=== PATIENT | female | born 1960 | race Caucasian/White ===

== ENCOUNTER 2024-05-01 16:22 | Emergency (ER) | payer OTHER, SELFPAY ==
[2024-05-01 16:27] VITALS: BP 130/85
[2024-05-01 16:37] LABS: % Basophils 0.2 % (0-2); % Eosinophils 0.1 % (0-6); % Immature Granulocytes 3.6 % (0-0.5); % Lymphocytes 6.8 % (20.5-51.1); % Monocytes 5.9 % (1.7-9.3); % Neutrophils 83.4 % (42.2-75.2); Absolute Immature Granulocytes 0.5 10^3/uL (0-0.05); Absolute Lymphocytes 0.9 10^3/uL (1.2-3.4); Absolute Monocytes 0.8 10^3/uL (0.1-0.6); Absolute Neutrophils 10.7 10^3/uL (1.4-6.5); Hematocrit 37.7 % (37.0-47.0); Hemoglobin 12.8 g/dL (12.0-16.0); Mean Corpuscular Hgb 33.2 pg (27.0-31.0); Mean Corpuscular Volume 97.7 fL (81.0-99.0); Mean Platelet Volume 10.9 fL (7.4-10.4); Nucleated Red Blood Cells % 0 %; Platelet Count 267 10^3/uL (130-400); Red Blood Cell Count 3.86 10^6/uL (4.20-5.40); Red Cell Dist. Width 13.6 % (11.5-14.5); White Blood Cell Count 12.9 10^3/uL (4.8-10.8)
[2024-05-01 16:50] LABS: ALT (SGPT) 53 U/L (0-35); AST (SGOT) 32 U/L (14-36); Alkaline Phosphatase 82 U/L (38-126); Blood Urea Nitrogen 13 mg/dl (7-17); Calcium 9.6 mg/dl (8.4-10.2); Carbon Dioxide 26 mmol/L (22-30); Chloride 98 mmol/L (98-107); Glucose 104 mg/dl (70-99); Sodium 130 mmol/L (135-145); Total Bilirubin 0.5 mg/dl (0.2-1.3); Total Protein 6.1 g/dl (6.3-8.2); eGFR > 60.00
[2024-05-01 19:16] VITALS: BP 148/75; BMI 23.9
--- NOTE | 2024-05-01 19:16 | ED.GENMED ---
History of Present Illness
General
Chief Complaint: Urinary Symptoms
Time Seen by Provider: 05/01/24 19:03
History of Present Illness
History of Present Illness:
63-year-old female presents to the emergency department for evaluation of right flank pain radiating to the right pelvis beginning today. She had hematuria earlier this week and was placed on antibiotics by her [facility] cancer team, first dose of
nitrofurantoin was yesterday. She denies any fevers, chills, sweats, nausea, or vomiting. Has been taking Tylenol without significant relief. Currently undergoing chemo and radiation for metastatic breast cancer, has chemo tentatively scheduled
for Saturday
Past History
Past History
ED Past Medical History: Cancer (breast)
Social History
Tobacco: Non-smoker
Alcohol: None
Drug: None
Personal:
Living: with family
Review of Systems
Review of Systems
Allergies reviewed?: Yes
All Other Systems: ROS reviewed and negative except as documented in HPI and ROS
Phy Exam
Physical Exam
Physical Exam:
GEN: Well appearing, NAD, WDWN
HEENT: Oral mucosa moist, no scleral icterus
Cardiac: Regular rate
Lung: No respiratory distress, no tachypnea
MSK: No gross deformity or injuries
Skin: Good color, no pallor or jaundice, no rashes
Neuro: AO x3, moves all extremities freely
Psych: Calm, cooperative
Course
Orders/Labs/Results
Orders:
Orders
05/01/24 16:34
Complete Blood Count/With Diff Urgent
Comprehensive Metabolic Panel Urgent
05/01/24 19:16
CT Abd/pel Without Iv Or Oral Urgent
Comment:
Reason For Exam: R flank pain
05/01/24 19:20
Urinalysis Reflex To Culture Urgent
Date Specimen was Collected: 05/01/24
Time Specimen was Collected: 19:19
Urine Microscopic Reflex Cult Urgent
05/01/24 21:09
Ketorolac [Toradol] 30 mg IM NOW STA
Tamsulosin [Flomax] 0.4 mg PO NOW STA
Abnormal Lab Results
05/01/24 05/01/24
16:34 19:20
WBC 12.9 H 10^3/uL
(4.8-10.8)
RBC 3.86 L 10^6/uL
(4.20-5.40)
MCH 33.2 H pg
(27.0-31.0)
MPV 10.9 H fL
(7.4-10.4)
Abs Immat Gran (auto) 0.5 H 10^3/uL
(0-0.05)
Absolute Neuts (auto) 10.7 H 10^3/uL
(1.4-6.5)
Absolute Lymphs (auto) 0.9 L 10^3/uL
(1.2-3.4)
Absolute Monos (auto) 0.8 H 10^3/uL
(0.1-0.6)
Immature Gran % 3.6 H %
(0-0.5)
Neutrophils % 83.4 H %
(42.2-75.2)
Lymphocytes % 6.8 L %
(20.5-51.1)
Sodium 130 L mmol/L
(135-145)
Glucose 104 H mg/dl
(70-99)
ALT 53 H U/L
(0-35)
Total Protein 6.1 L g/dl
(6.3-8.2)
Ur Occult Blood Reflex 2+ A
(Negative)
Urine RBC 7-10 A /HPF
(0-2)
Urine Bacteria (Reflex) Few A
(Negative)
05/01/24 16:34
05/01/24 16:34
Vital Signs
Initial and Last Documented VS:
Initial Vital Signs
Temp Pulse Resp BP Pulse Ox
98.1 F 74 16 130/85 97
05/01/24 16:27 05/01/24 16:27 05/01/24 16:27 05/01/24 16:27 05/01/24 16:27
Last Documented Vital Signs
Temp Pulse Resp BP Pulse Ox
98.1 F 62 18 148/75 100
05/01/24 16:27 05/01/24 19:16 05/01/24 20:06 05/01/24 19:16 05/01/24 19:16
MDM/Problems Addressed
MDM/Problems Addressed:
3 mm proximal right ureteral stone identified on CT. She is clinically stable and urine is bland. Nevertheless we will recommend she complete her course of Macrobid given that she is scheduled for chemotherapy soon. Will prescribe NSAIDs and
Flomax, the patient is on dexamethasone and prophylactic PPIs, educated on the potential risk of stomach ulcer formation however feel this outweighs the risk of treating the stone with opiates only.
*Critical Care Note
Total Time (30-74mins, 75-104mins- exclusive of procedures): Not Applicable
ED Attending Note
-
Portions of this chart may have been created with voice recognition software.� Occasional wrong word or��sound alike� substitutions may have occurred due to the inherent limitations of voice recognition software.
Discharge Plan
Departure
Patient Disposition: Home (Routine Discharge)
Date of Disposition: 05/01/24
Time of Disposition: 21:16
Patient with high blood pressure during this ER visit?: No
Discharge Problem:
Ureterolithiasis
Instructions: Kidney Stone, Adult ED
Prescriptions:
New
diclofenac sodium 75 mg tablet,delayed release (DR/EC)
75 mg PO BID Qty: 20 0RF
tamsulosin [Flomax] 0.4 mg capsule
0.4 mg PO HS Qty: 14 0RF
Referrals:
NotteRamiroChar K., DO [Family Provider] -
Activity Restrictions/Additional Instructions:
Take the medications as prescribed. Please finish your course of antibiotics prescribed by your doctor prior to arrival in the ER. Use the urine strainer to be sure you know when you have passed the stone. Return to the ER if you develop fever,
vomiting, or uncontrolled pain. Please contact your oncology team on Saturday to make them aware that you were diagnosed with a 3 mm right ureter stone
Interventions
Interventions:
*Risk Screen - Suicide Last Done: 05/01/24 16:28
*General Assessment Last Done: 05/01/24 19:16
*Neglect/Abuse Screening Last Done: 05/01/24 16:28
ED- Fall Risk Assessment Last Done: 05/01/24 19:16
*ED COVID-19 Vaccine History Last Done: 05/01/24 19:16
*Nursing Disposition Last Done: 05/01/24 21:24
ED-Female Genitourinary Assessment Last Done: 05/01/24 19:16
Discharge Date and Time
Discharge Date/Time: 05/01/24 21:25
Print Language: SWAZI
[2024-05-01 19:51] LABS: Urine Albumin Negative (Neg - Trace); Urine Bilirubin Negative (Negative); Urine Character Clear (Clear); Urine Color Yellow; Urine Glucose Negative (Negative); Urine Ketone Negative (Negative); Urine Leukocyte Negative (Negative); Urine Nitrite Negative (Negative); Urine Occult Blood 2+ (Negative); Urine Urobilinogen Negative (Neg - 1+)
[2024-05-01 20:21] LABS: Urine Bacteria Few (Negative); Urine White Cell 0-2 /HPF (0-5)
[2024-05-01] MEDS: FLOMAX 0.4 MG PO (21:21)
[2024-05-01] MEDS: TORADOL 30 MG IM (21:21)
== END 2024-05-01 21:25 | disposition home or self-care (01) ==
LOC: EMR 16:22
PROVIDERS: Physician Assistant; Student in an Organized Health Care Education/Training Program; EMERGENCY PHYSICIAN Emergency Medicine; FAMILY PHYSICIAN Family Medicine
DX: N20.2 Calculus of kidney with calculus of ureter (principal); R31.9 Hematuria, unspecified; C50.919 Malignant neoplasm of unspecified site of unspecified female breast
CPT/HCPCS: 99284; 74176; 80053; 81003; 81015; 85025

== ENCOUNTER 2024-06-03 21:53 | Inpatient (IN) | payer OTHER, SELFPAY ==
[2024-06-03] VITALS (16 sets, daily range): BP systolic 97–124; BP diastolic 58–90; BMI 21.1; BMI 24.1
--- NOTE | 2024-06-03 14:22 | ED.GENMED ---
History of Present Illness
General
Chief Complaint: Dehydration Symptoms
Source: patient
Exam Limitations: none
Time Seen by Provider: 06/03/24 14:03
History of Present Illness
History of Present Illness:
63-year-old breast and lung cancer patient followed at [facility] presents with fatigue racing heart feelings of dehydration. She was seen here at the end of April with a right kidney stone. She notes persistent right flank pain but does believe
she passed stone. The flank pain is pleuritic in nature. She does note that she has blisters over her mouth which are expected per her cancer care team given the chemotherapy she is receiving. She has had loose stools intermittently over the past
couple days. She denies chest pain. She noted a fever at home. She is currently on Zithromax for cough and doxycycline ongoing.
Past History
Past History
ED Past Medical History: Cancer (breast)
Social History
Tobacco: Non-smoker
Alcohol: None
Drug: None
Personal:
Living: with family
Phy Exam
Physical Exam
Physical Exam:
General: Chronically ill-appearing female no acute respiratory distress
HEENT: Normocephalic atraumatic blisters noted around the mouth. Mucosa dry
Heart: Tachycardic but regular
Lungs: Wheeze bilaterally
Abdomen is soft nontender nondistended no guarding or rebound
Extremities: No cyanosis
Skin no rash
Course
Orders/Labs/Results
Orders:
Orders
06/03/24 11:39
EKG [Electrocardiogram (*1)] Urgent
Reason for Study: Tachycardia
EKG- Treatment ONCE
06/03/24 14:21
CT Abd/pel Without Iv Or Oral Urgent
Comment:
Reason For Exam: right flank pain
CT Chest PE Study Urgent
Comment:
Reason For Exam: tachycardia, sob, flank pain
0.9% Sodium Chloride 1000 ml [Nss] 1,000 ml IV BOLUS
Ipratropium/Albuterol Sulfate [Duoneb] 3 ml INH R NOW STA
06/03/24 14:44
COVID-19 Antigen Urgent
Source: Nasal Swab
Influenza A+B Rapid Molecular Urgent
VESTA Source: Nasal Swab
Specimen Description:
06/03/24 14:46
Complete Blood Count/With Diff Urgent
Comprehensive Metabolic Panel Urgent
TSH Reflex To Free T4 Urgent
06/03/24 15:47
Ketorolac [Toradol] 15 mg IV NOW STA
06/03/24 18:11
0.9% Sodium Chloride 1000 ml [Nss] 1,000 ml IV BOLUS
Dexamethasone Sod Phosphate [Decadron] 10 mg IV NOW STA
06/03/24 18:13
Urinalysis Reflex To Culture Urgent
Abnormal Lab Results
06/03/24
14:46
WBC 1.6 L* 10^3/uL
(4.8-10.8)
RBC 2.84 L 10^6/uL
(4.20-5.40)
Hgb 9.7 L g/dL
(12.0-16.0)
Hct 29.2 L %
(37.0-47.0)
MCV 102.8 H fL
(81.0-99.0)
MCH 34.2 H pg
(27.0-31.0)
RDW 14.8 H %
(11.5-14.5)
Plt Count 81 L 10^3/uL
(130-400)
MPV 12.3 H fL
(7.4-10.4)
Absolute Neuts (auto) 1.0 L 10^3/uL
(1.4-6.5)
Absolute Lymphs (auto) 0.5 L 10^3/uL
(1.2-3.4)
Absolute Monos (auto) 0.0 L 10^3/uL
(0.1-0.6)
Immature Gran % 1.8 H %
(0-0.5)
Monocytes % 1.2 L %
(1.7-9.3)
Sodium 132 L mmol/L
(135-145)
Potassium 3.2 L mmol/L
(3.5-5.1)
BUN 25 H mg/dl
(7-17)
Creatinine 1.1 H mg/dL
(0.6-1.0)
Calcium 7.8 L mg/dl
(8.4-10.2)
Total Protein 4.4 L g/dl
(6.3-8.2)
Albumin 2.4 L g/dl
(3.5-5.0)
06/03/24 14:46
06/03/24 14:46
Vital Signs
Initial and Last Documented VS:
Initial Vital Signs
Temp Pulse Resp BP Pulse Ox
99.8 F 142 18 120/75 97
06/03/24 11:40 06/03/24 11:40 06/03/24 11:40 06/03/24 11:40 06/03/24 11:40
Last Documented Vital Signs
Temp Pulse Resp BP Pulse Ox
99.8 F 116 17 108/71 97
06/03/24 11:40 06/03/24 17:00 06/03/24 17:00 06/03/24 17:00 06/03/24 17:00
MDM/Problems Addressed
Differential Diagnosis Includes:
Fatigue, racing heart sensation of dehydration and pleuritic right flank pain. Review of chart shows that she had a right ureteral stone about a month ago. She believes she passed a stone. Given the tachycardia cancer patient status and pleuritic
nature of pain will PE study her. Also order CT of abdomen to evaluate status of kidney stone. Fluids ordered. DuoNeb ordered. COVID and flu test pending
*Critical Care Note
Total Time (30-74mins, 75-104mins- exclusive of procedures): Not Applicable
Update Note
Update Note:
Patient has several things going up on her workup. She has severe bronchitis on CT of her chest but no PE. She also has a 3.9 mm distal ureteral stone on the right side. Still looks dry. She persist to be tachycardic in the upper 120s. Patient
is given nebulizer here Decadron here and Toradol for her flank pain. At this point will admit for persistent tachycardia secondary to dehydration due to bronchitis and right sided kidney stone
ED Attending Note
-
Portions of this chart may have been created with voice recognition software.� Occasional wrong word or��sound alike� substitutions may have occurred due to the inherent limitations of voice recognition software.
Discharge Plan
Departure
Patient Disposition: Admit
Date of Disposition: 06/03/24
Time of Disposition: 18:17
Admit to: Telemetry
Presentation/result/management discussed w/ accepting MD/DO: Hospitalist
Discharge Problem:
Acute dehydration, Acute bronchitis, Calculus of right ureter
Prescriptions:
No Action
diclofenac sodium 75 mg tablet,delayed release (DR/EC)
75 mg PO BID Qty: 20 0RF
tamsulosin [Flomax] 0.4 mg capsule
0.4 mg PO HS Qty: 14 0RF
Referrals:
Char Ryan DO [Family Provider] -
Interventions
Interventions:
*Risk Screen - Suicide Last Done: 06/03/24 11:40
*General Assessment Last Done: 06/03/24 11:40
*Neglect/Abuse Screening Last Done: 06/03/24 11:40
ED- Fall Risk Assessment Last Done: 06/03/24 15:18
*ED COVID-19 Vaccine History Last Done: 06/03/24 11:40
ED- Cardiac Assessment Last Done: 06/03/24 15:18
ED- Neurological Assessment Last Done: 06/03/24 15:18
ED- Pulmonary Assessment Last Done: 06/03/24 15:18
Discharge Date and Time
Print Language: BRUNEIAN
[2024-06-03] MEDS: DUONEB 3 ML INH (14:48)
[2024-06-03] MEDS: NSS 1000 IV ×2 (14:54→18:21)
[2024-06-03 15:14] LABS: ALT (SGPT) 34 U/L (0-35); AST (SGOT) 35 U/L (14-36); Albumin 2.4 g/dl (3.5-5.0); Alkaline Phosphatase 72 U/L (38-126); Blood Urea Nitrogen 25 mg/dl (7-17); Calcium 7.8 mg/dl (8.4-10.2); Carbon Dioxide 22 mmol/L (22-30); Chloride 102 mmol/L (98-107); Estimated Creatinine Clearance 45 ml/min; Glucose 99 mg/dl (70-99); Potassium 3.2 mmol/L (3.5-5.1); Sodium 132 mmol/L (135-145); Total Bilirubin 0.7 mg/dl (0.2-1.3); Total Protein 4.4 g/dl (6.3-8.2); eGFR 56.46
[2024-06-03 15:18] LABS: COVID-19 Antigen Negative (Negative)
[2024-06-03 15:50] LABS: % Basophils 0.6 % (0-2); % Eosinophils 0.6 % (0-6); % Immature Granulocytes 1.8 % (0-0.5); % Lymphocytes 32.3 % (20.5-51.1); % Monocytes 1.2 % (1.7-9.3); % Neutrophils 63.5 % (42.2-75.2); Absolute Lymphocytes 0.5 10^3/uL (1.2-3.4); Hematocrit 29.2 % (37.0-47.0); Hemoglobin 9.7 g/dL (12.0-16.0); Mean Corp Hgb Conc. 33.2 g/dL (33.0-37.0); Mean Corpuscular Hgb 34.2 pg (27.0-31.0); Mean Corpuscular Volume 102.8 fL (81.0-99.0); Mean Platelet Volume 12.3 fL (7.4-10.4); Nucleated Red Blood Cells % 0 %; Platelet Count 81 10^3/uL (130-400); Red Blood Cell Count 2.84 10^6/uL (4.20-5.40); Red Cell Dist. Width 14.8 % (11.5-14.5); White Blood Cell Count 1.6 10^3/uL (4.8-10.8)
[2024-06-03] MEDS: TORADOL 15 MG IV (15:53)
[2024-06-03 16:04] LABS: TSH Reflex To Free T4 2.17 uIU/ml (0.47-4.68)
[2024-06-03] MEDS: DECADRON 10 MG IV (18:21)
--- NOTE | 2024-06-03 18:34 | HPS.HSE ---
Family Physician
-
Family Physician: Char Ryan
Chief Complaint
-
right flank pain, watery diarrhea cough/ wheezing, fever
History of Present Illness
63-year-old female currently receiving Chemotherapy and Radiation through [facility] for Breast cancer with mets. Her most recent chemo being on 05/28/2025. She is unaware of the name but gets every 3 weeks for 12-hour infusion through
her port in her right upper chest wall. She initially came to the ER complaining of diarrhea since Saturday 7 days ago. She reports she had 5 episodes of watery diarrhea then again yesterday
06/01 she had 2-3 episodes of watery diarrhea.She also reports 2 days of dysuria with right flank pain. She does report some dry heaves, but no vomiting . She has had a chronic cough since early April but then 1 week ago started having
wheezing. She was seen by her PCP who placed her on dexamethasone taper and Zithromax of which she only took 1 tablet of. She was noted to be tachycardic in the 120s and appeared dry on exam to the ER provider. Her CT of her abdomen pelvis without
contrast showed 3.9 mm obstructing calculus at the right ureterovesical junction causing hydroureteronephrosis with distention of urinary bladder, distention of the gallbladder. The patient has past medical history of metastatic left breast cancer
on chemo to left upper lobe, where she had resection, left proximal femur sclerotic lesion 7.[address] today, left upper lobe pulmonary wedge 9 mm nodule, 2.9 cm opacity in the right lung which are new for patient, former smoker total 27-year half
pack daily, used to drink 1 glass wine a day now has 1/month, hypothyroidism, thyroid nodules, migraines, GERD, insomnia, HLD.
Medical History
Past Medical History
Past Medical History: Reports Other
Additional Past Medical History:
metastatic left breast cancer on chemo to left upper lobe, where she had resection
left proximal femur sclerotic lesion 7.[address] today-Concern metastatic from breast
left upper lobe pulmonary wedge 9 mm nodule, 2.9 cm opacity in the right lung which are new for patient-Concern metastatic breast
former smoker total 27-year half pack daily
used to drink 1 glass wine a day now has 1/month,
hypothyroidism
thyroid nodules
migraines
GERD
insomnia
HLD
Past Surgical History: Reports Other
Additional Past Surgical History:
q3 weeks via port Right upper chest wall
Wedge resection left upper and left lower lobe 2020 secondary to non-small cell lung CA
Social History
Tobacco: Former Smoker (27 year 06/04 ppd stopped 23 years ago)
Alcohol: Occasional (once a month was daily etoh wine until march)
Personal:
Living: With Family
Employment: Retired
Family History
Family History: Not pertinent
Allergies / Home Medications
Allergies reflects when Allergies were last updated in [employer].
Home Medications with original date entered in [employer]
Allergy/Medication List:
Allergies
Allergy/AdvReac Type Severity Reaction Status Date / Time
Penicillins Allergy Hives Verified 10/30/14 16:35
Home Medications
acyclovir 5 % topical ointment 1 applic topical QIDPRN PRN unknown 06/03/24
atorvastatin 10 mg tablet 10 mg PO QPM 06/03/24
cholecalciferol (vitamin D3) 25 mcg (1,000 unit) tablet 25 mcg PO DAILY 06/03/24
dexamethasone 0.5 mg tablet 0.5 mg PO DAILY 06/03/24
dexamethasone 4 mg tablet 4 mg PO USEASDIRECTD 06/03/24
diphenhydramine 25 mg-acetaminophen 500 mg tablet (Tylenol PM Extra Strength) 2 tab PO HSPRN PRN sleep 06/03/24
diphenhydramine HCl 25 mg capsule (Benadryl) 25 mg PO HSPRN PRN sleep 06/03/24
erenumab-aooe 70 mg/mL subcutaneous auto-injector (Aimovig Autoinjector) 70 mg SC QMONTH 06/03/24
folic acid 1 mg tablet 1 mg PO DAILY 06/03/24
lidocaine-prilocaine 2.5 %-2.5 % topical cream 1 applic topical DAILYPRN PRN topical pain/prior to port access 06/03/24
melatonin 5 mg tablet 5 mg PO HSPRN PRN sleep 06/03/24
olanzapine 5 mg tablet 5 mg PO USEASDIRECTD 06/03/24
ondansetron HCl 8 mg tablet 8 mg PO Q8HPRN PRN nausea/vomiting 06/03/24
pantoprazole 40 mg tablet,delayed release 40 mg PO DAILY 06/03/24
paroxetine HCl 20 mg tablet 20 mg PO DAILY 06/03/24
propranolol 10 mg tablet 10 mg PO BID 06/03/24
rizatriptan 10 mg tablet 10 mg PO DAILYPRN PRN migraine 06/03/24
topiramate 25 mg tablet 25 mg PO HS 06/03/24
valacyclovir 500 mg tablet 500 mg PO QPM 06/03/24
Review of Systems
-
History Source: Patient and Family ( [employer]))
A 12 point ROS was completed and negative except as noted: Yes
Constitutional: Reports Fever, Fatigue and Chills
EENT: Denies Sore Throat or Runny Nose
Respiratory: Reports Cough and Trouble Breathing (Wheezing)
Cardiac: Denies Chest Pain, Diaphoresis or Palpitations
Abdomen/GI: Reports Abdominal Pain (generalized), Nausea and Diarrhea (last episode yesrday 06/02 had 2-3 episodes then , and 5 episodes on 05/29); Denies Vomiting
: Reports Dysuria (2 days with right flank pain); Denies Frequency, Flank Pain or Incontinence
Musculoskeletal: Denies Joint Pain or Edema
Skin: Denies Itching or Rash
Neurological: Denies Dizzy, Headache or Weakness
Endocrine: Reports No Symptoms
Hematologic/Lymphatic: Reports No Symptoms
Psych: Reports Calm
Physical Exam
Vital Signs
Vital Signs
Temp Pulse Resp BP Pulse Ox
99.8 F 116 17 108/71 97
06/03/24 11:40 06/03/24 17:00 06/03/24 17:00 06/03/24 17:00 06/03/24 17:00
Physical Exam
General: Comfortable, Conversant, Fever and Chills
HEENT: NormoCephalic, Anicteric, PERRLA, [place] Conjunctivae, No Ptosis and Neck Nontender
Respiratory: Wheezes (throughout both lung bo ), Rales and Rhonchi
Cardiac: S1/S2 and Regular Rhythm; No Murmur, Rub, Gallop, Peripheral Edema or Calf Tenderness
Breast: Deferred by me
GI: Soft, Non Distended, Normal Bowel Sounds and Tender (right lateral abdomen )
Rectal: Deferred by Provider
Genito-urinary: Deferred by me
Musculoskeletal: No Clubbing, No Cyanosis and No Edema
Skin: Warm and Dry; No Rash or Jaundice
Neuro: AO x 3 (confused with some history and dates of things), Cranial Nerves Intact and No Sensory Deficits; No Slurred Speech, Facial Droop, Tremors or Sedated
Psych: Calm
Laboratory Results
-
06/03/24 14:46
06/03/24 14:46
Laboratory Results
Total Bilirubin 0.7 mg/dl (0.2-1.3) 06/03/24 14:46
AST 35 U/L (14-36) 06/03/24 14:46
ALT 34 U/L (0-35) 06/03/24 14:46
Alkaline Phosphatase 72 U/L (38-126) 06/03/24 14:46
Data Reviewed
-
CT Scan: Report Reviewed by me
Lab Data: Labs Reviewed by me
Impression/Plan
-
Impression/plan:
Admit to IMU
#Sepsis secondary to OBSTRUCTING RIGHT URETERAL STONE with SEVERE ACUTE RIGHT HYDROURETERONEPHROSIS
05/01/2024 treated with course of Macrobid, NSAIDs and Flomax
-CONSULT UROLOGY
-Griffith will be placed in OR by Dr. Rodarte
-IV cefepime 2gm q8h
-tylenol prn fever 100.4F> or mild pain
CT abdomen pelvis without oral or IV contrast:
1. MODERATE to SEVERE ACUTE RIGHT HYDROURETERONEPHROSIS secondary to a 3.9 mm obstructing calculus at the right ureterovesical junction.
2. Moderate distention of the urinary bladder.
3. Moderate distention of the gallbladder.
4. Small hiatal hernia.
5. Chronic colitis in the cecum and ascending colon.
6. 7.9 mm sclerotic lesion in the intertrochanteric left proximal femur suspicious for a small blastic osseous metastasis in the setting of known breast cancer. A benign sclerotic bone island is alternative diagnostic possibility.
#Hypotension 2/2 sepsis
BP 123/90 >108/71
Given 2 liters
-IV NSS 100 cc/hr
# Severe bilateral Lower LOBE BRONCHITIS
Patient has been on Zithromax by her PCP started yesterday- will hold
- Will hold Zithromax as feel more Viral
-Duo nebs roc and prn
-
CT chest:
1.SEVERE BILATERAL LOWER LOBE BRONCHITIS.
2. Bands of scarring in the left upper lobe and posterior basilar left lower lobe at the site of previous pulmonary wedge resections.
3. 9 mm nodule along the suture line of the left upper lobe pulmonary wedge resection which could be scarring or recurrent malignancy.
4. 2.9 cm irregular shaped nodular opacity in the right lung apex which could be scarring or primary lung cancer (unlikely metastatic disease).
5. Previous left mastectomy.
6. Bilateral breast implants in place.
7. Moderate right hydronephrosis.
#Acute Pancytopenia Likely secondary to Chemotherapy
#Acute NEUTROPENIA
Absolute neutrophil 1.0 prior on 05/01/2024 was 10.7
WBC 1.6, Hgb 9.7, PLT 81
Type and screen, blood consent obtained by me and scanned by [facility] community music therapist
-Neutropenic precautions
-Consult ONCOLOGY
#YANELY secondary to sepsis
Creat 1.1 > creat 0.7
IV NSS 100cc/hr
#Hypokalemia
K3.2 Will give 40 mEq p.o. now
Follow BMP in a.m.
- check mag, serum calcium is 7.8 but corrected is 9.1(ca 7.8,albumin 2.4, nml albumin 4.= 9.1)
#Breast cancer with NEW METS to along suture line of the left upper lobe pulmonary wedge 9 mm nodule, 2.9 cm opacity in the right lung
#Breast cancer known with mets left femur on current CHEMO
Per CT
3.9 mm 7.9 mm sclerotic lesion in the intertrochanteric left proximal femur suspicious for a small blastic osseous metastasis in the setting of
known breast cancer. A benign sclerotic bone island is alternative diagnostic
-Consult ONC
Appears to be new mets along suture line of the left upper lobe pulmonary wedge 9 mm nodule, 2.9 cm opacity in the right lung
Last Chemo on 05/28/24 gets 12 hour infusion q3 weeks via port Right upper chest wall
DVT prophylaxis
SCDs
Full code
[2024-06-03 18:38] LABS: Urine Albumin Trace (Neg - Trace); Urine Bilirubin Negative (Negative); Urine Character Clear (Clear); Urine Color Yellow; Urine Glucose Negative (Negative); Urine Ketone 2+ (Negative); Urine Leukocyte 1+ (Negative); Urine Nitrite Negative (Negative); Urine Occult Blood Trace (Negative); Urine Specific Gravity 1.015 (<1.030); Urine Urobilinogen Negative (Neg - 1+)
--- NOTE | 2024-06-03 19:17 | W.PN.UPDATE ---
Update Note
Progress Note Update
This is an addendum to the H&P written by Elana Haynes on 06/03/2024.� Patient seen and examined independently with [employer].
63-year-old female past medical history of breast cancer/lung cancer followed at [facility] on chemotherapy presenting with fatigue, palpitations and persistent right flank pain.� She was seen here at the end of April with right ureteral stone but
does not feel that she passed the stone.� Also with oral blisters from chemotherapy.� Also with intermittent loose stools.� She had fever.� Currently on Zithromax/doxycycline started yesterday for cough.
Patient clinically neutropenic septic with leukopenia/neutropenia, tachycardia, secondary to sepsis secondary to 3.9 mm obstructing calculus the right ureterovesicular junction with moderate to severe acute right hydroureteronephrosis.� This is
likely the same stone from prior.� UA pending.� Check urine culture, blood cultures.� NPO.� IV fluids.� Cefepime.� Urology consulted and to take to the operating room today for stent.
Patient pancytopenic likely secondary to chemotherapy.
Patient has bilateral wheezing on examination CT chest shows severe bilateral lower lobe bronchitis.� DuoNebs.� Hold off on steroids at this time due to urosepsis.
Consult oncology due to pancytopenia.
[2024-06-03] MEDS: MAXIPIME 2000 MG IV (19:21)
[2024-06-03 19:41] LABS: Urine Bacteria Few (Negative)
--- NOTE | 2024-06-03 20:05 | CONS.URO ---
Consultation
-
Performing Provider: Peffer
Reason for Consultation: Ureteral stone, sepsis
Medical History
History of Present Illness
63-year-old female currently receiving Chemotherapy and Radiation through [facility] for metastatic Breast cancer
She initially came to the ER complaining of 1 week of diarrhea, 2 days of dysuria with right flank pain.
Of note she was recently seen in the ER 04/2024 for R proximal ureteral stone which she thought she passed
She has had a chronic cough since early April but then 1 week ago started having wheezing. She was seen by her PCP who placed her on dexamethasone taper and Zithromax of which she only took 1 tablet of.
She was noted to be tachycardic in the 140s-120s with only partial response to fluids
Labs show neutropenia with clinical picture concerning for sepsis
Her CT of her abdomen pelvis without contrast showed 3.9 mm obstructing calculus at the right ureterovesical junction causing hydroureteronephrosis
CT chest also showed severe bronchitis
She was admitted for sepsis management, dehydration, diarrhea, bronchitis, and urology consulted for obstructing stone
Past Medical History
Past Medical History: Other (breast cancer, hypothyroidism, thyroid nodules, migraines, GERD, insomnia, HLD, kidney stone)
Social History
Tobacco: Former Smoker
Allergies/Home Medications
Allergies
Allergy/AdvReac Type Severity Reaction Status Date / Time
Penicillins Allergy Hives Verified 10/30/14 16:35
Home Medications
�Medication �Instructions �Recorded �Confirmed �Type
acyclovir 5 % topical ointment 1 applic topical QIDPRN PRN unknown 06/03/24 06/03/24 History
atorvastatin 10 mg tablet 10 mg PO QPM 06/03/24 06/03/24 History
cholecalciferol (vitamin D3) 25 25 mcg PO DAILY 06/03/24 06/03/24 History
mcg (1,000 unit) tablet
dexamethasone 0.5 mg tablet 0.5 mg PO DAILY 06/03/24 06/03/24 History
dexamethasone 4 mg tablet 4 mg PO USEASDIRECTD 06/03/24 06/03/24 History
diphenhydramine 25 2 tab PO HSPRN PRN sleep 06/03/24 06/03/24 History
mg-acetaminophen 500 mg tablet
(Tylenol PM Extra Strength)
diphenhydramine HCl 25 mg capsule 25 mg PO HSPRN PRN sleep 06/03/24 06/03/24 History
(Benadryl)
erenumab-aooe 70 mg/mL 70 mg SC QMONTH 06/03/24 06/03/24 History
subcutaneous auto-injector
(Aimovig Autoinjector)
folic acid 1 mg tablet 1 mg PO DAILY 06/03/24 06/03/24 History
lidocaine-prilocaine 2.5 %-2.5 % 1 applic topical DAILYPRN PRN 06/03/24 06/03/24 History
topical cream topical pain/prior to port access
melatonin 5 mg tablet 5 mg PO HSPRN PRN sleep 06/03/24 06/03/24 History
olanzapine 5 mg tablet 5 mg PO USEASDIRECTD 06/03/24 06/03/24 History
ondansetron HCl 8 mg tablet 8 mg PO Q8HPRN PRN nausea/vomiting 06/03/24 06/03/24 History
pantoprazole 40 mg tablet,delayed 40 mg PO DAILY 06/03/24 06/03/24 History
release
paroxetine HCl 20 mg tablet 20 mg PO DAILY 06/03/24 06/03/24 History
propranolol 10 mg tablet 10 mg PO BID 06/03/24 06/03/24 History
rizatriptan 10 mg tablet 10 mg PO DAILYPRN PRN migraine 06/03/24 06/03/24 History
topiramate 25 mg tablet 25 mg PO HS 06/03/24 06/03/24 History
valacyclovir 500 mg tablet 500 mg PO QPM 06/03/24 06/03/24 History
Physical Exam
Vital Signs
Vital Signs
Temp Pulse Resp BP Pulse Ox
99.8 F 116 17 108/71 97
06/03/24 11:40 06/03/24 17:00 06/03/24 17:00 06/03/24 17:00 06/03/24 17:00
Lab / Testing Results
Laboratory Results
06/03/24 14:46
06/03/24 14:46
Physical Exam
General: Well Developed and Other (chronically ill, fatigued, uncomfortable)
Respiratory: Non Labored Respirations
GI: Soft and Non Tender
Genito-urinary: No Costovertebral Tend
Neuro: AO x 3
Psych: Calm and Intact Judgement
Assessment / Plan
-
63F on chemotherapy for metastatic breast cancer
R prox ureteral stone diagnosed 04/2024
Admitted for diarrhea, dehydration, flank pain, sepsis from persistent ureteral stone vs severe bronchitis
CT showing small R distal ureteral stone
s/p OR 06/03/24 for ureteroscopy, removal of R distal ureteral stone, R ureteral stent placement
- Continue broad spectrum antibiotics pending cultures
- Culture of mildly cloudy urine above the stone sent
- Ureteral stent to stay in place for approx 2 weeks, outpatient removal
- Griffith catheter placed for I/O and maximal drainage until stable
--- NOTE | 2024-06-03 21:13 | PTCARENOTE ---
Patient arrived from OR with blood on her face. Has sores on her lips from chemo and they were bleeding.
[2024-06-03] MEDS: STERILE WATER FOR INJECTION IV (22:54)
[2024-06-03] MEDS: TOPAMAX 25 MG PO (23:30)
[2024-06-04] VITALS (12 sets, daily range): BP systolic 98–123; BP diastolic 36–90; BMI 24.1
[2024-06-04] MEDS: STERILE WATER FOR INJECTION 10 ML IV ×3 (04:56→21:00)
[2024-06-04] MEDS: MAXIPIME 2000 MG IV ×3 (04:56→21:00)
[2024-06-04] MEDS: CATHFLO/ACTIVASE 2 MG INTRACATH ×2 (06:03→08:24)
--- NOTE | 2024-06-04 06:08 | VATNOTE ---
CALLED TO ASSESS LACK OF BR FROM L SUBQ PRT. UNABLE TO ESTABLISH A BR BUT PRT FLUSHES EASILY. PT REPORTS THIS HAS OCCURRED BEFORE AT [facility]. CATHFLO PROTOCOL INITIATED DOCUMENTED. VAT TO FOLLOW UP IN 60MINS. PCN AWARE OF INTERVENTION AND OUTCOME.
--- NOTE | 2024-06-04 06:15 | PTCARENOTE ---
Received pt from PACU. VSS at this time. HR 110-130s. 95% on RA; lungs coarse, exp wheeze and diminished throughout. AAOx3. Spouse at bedside and explained that pt has been getting more forgetful. Walks with single point cane; took it
home with him. Griffith draining yellow clear urine. No c/o pain. Pt has chemo sore surrounding her mouth that are open and bleeding. Unable to get blood return from port. VAT called. Cathflow ordered and administered by VAT at 0615. Can not
use port until VAT flushes line. Resting in bed with call harris in reach.
--- NOTE | 2024-06-04 07:58 | VATNOTE ---
NO blood return after 2 hr cathflo dwell 2nd dose ordered.
--- NOTE | 2024-06-04 08:29 | VATNOTE ---
Cathflo 2mg instilled in Left SQ port for withdraw occlusion
[2024-06-04] MEDS: PAXIL 20 MG PO (08:45)
[2024-06-04] MEDS: VITAMIN D3 (cholecalciferol) 25 MCG PO (08:45)
[2024-06-04] MEDS: PROTONIX 40 MG PO (08:45)
[2024-06-04] MEDS: FOLVITE 1 MG PO (08:45)
[2024-06-04] MEDS: ZOVIRAX OINTMENT 5% 1 APPLIC TOPICAL (08:46)
--- NOTE | 2024-06-04 10:41 | VATNOTE ---
Brisk blood return after 2nd dose of cathflo dwell. AM labs drawn and sent
[2024-06-04] MEDS: ZITHROMAX INFUSION 250 IV (11:04)
[2024-06-04 11:17] LABS: ALT (SGPT) 28 U/L (0-35); AST (SGOT) 30 U/L (14-36); Albumin 2.1 g/dl (3.5-5.0); Alkaline Phosphatase 60 U/L (38-126); Blood Urea Nitrogen 17 mg/dl (7-17); Calcium 7.7 mg/dl (8.4-10.2); Carbon Dioxide 24 mmol/L (22-30); Chloride 106 mmol/L (98-107); Estimated Creatinine Clearance 65 ml/min; Glucose 138 mg/dl (70-99); Potassium 3.3 mmol/L (3.5-5.1); Sodium 134 mmol/L (135-145); Total Bilirubin 0.4 mg/dl (0.2-1.3); eGFR > 60.00
[2024-06-04 11:22] LABS: Urine Albumin Trace (Neg - Trace); Urine Bilirubin Negative (Negative); Urine Character Clear (Clear); Urine Color Yellow; Urine Glucose Negative (Negative); Urine Ketone Negative (Negative); Urine Leukocyte Trace (Negative); Urine Nitrite Negative (Negative); Urine Occult Blood 2+ (Negative); Urine Specific Gravity 1.005 (<1.030); Urine Urobilinogen Negative (Neg - 1+); Urine pH 6.5 (5.0-9.0)
[2024-06-04 11:34] LABS: % Immature Granulocytes 1.7 % (0-0.5); % Lymphocytes 19.8 % (20.5-51.1); % Monocytes 0.6 % (1.7-9.3); % Neutrophils 77.9 % (42.2-75.2); Absolute Lymphocytes 0.4 10^3/uL (1.2-3.4); Absolute Neutrophils 1.4 10^3/uL (1.4-6.5); Hematocrit 25.8 % (37.0-47.0); Hemoglobin 8.5 g/dL (12.0-16.0); Mean Corp Hgb Conc. 32.9 g/dL (33.0-37.0); Mean Corpuscular Hgb 33.7 pg (27.0-31.0); Mean Corpuscular Volume 102.4 fL (81.0-99.0); Mean Platelet Volume 12.7 fL (7.4-10.4); Nucleated Red Blood Cells % 0 %; Platelet Count 64 10^3/uL (130-400); Red Blood Cell Count 2.52 10^6/uL (4.20-5.40); Red Cell Dist. Width 14.7 % (11.5-14.5)
[2024-06-04 11:35] LABS: White Blood Cell Count 1.8 10^3/uL (4.8-10.8)
[2024-06-04] MEDS: DUONEB 3 ML INH ×3 (12:08→19:40)
[2024-06-04] MEDS: FLUSH (NSS) 2 FLUSH IV (12:20)
[2024-06-04 14:52] LABS: Urine Amorphous Seen
[2024-06-04 14:53] LABS: Urine White Cell 0-2 /HPF (0-5)
--- NOTE | 2024-06-04 15:18 | W.PN.HOSP.TC ---
Today's Communication/Plan
-
cont abx
f/u cultures
hsq, monitor platelet
f/u urology, onc recs
hold on steroids for now
restart BB for elevated HR - monitor BP
LR bolus
Assessment / Plan
Assessment / Plan
Physical Exam
General: Comfortable, Conversant, Fever and Chills
HEENT: NormoCephalic, Anicteric, PERRLA, [place] Conjunctivae, No Ptosis and Neck Nontender
Respiratory: Wheezes (throughout both lung bo ), Rales and Rhonchi
Cardiac: S1/S2 and Regular Rhythm; No Murmur, Rub, Gallop, Peripheral Edema or Calf Tenderness
Breast: Deferred by me
GI: Soft, Non Distended, Normal Bowel Sounds and
Rectal: Deferred by Provider
Genito-urinary: Deferred by me
Musculoskeletal: No Clubbing, No Cyanosis and No Edema
Skin: Warm and Dry; No Rash or Jaundice
Neuro: AO x 3 (confused with some history and certain dates), Cranial Nerves Intact and No Sensory Deficits; No Slurred Speech, Facial Droop, Tremors or Sedated
Psych: Calm
#OBSTRUCTING RIGHT URETERAL STONE with SEVERE ACUTE RIGHT HYDROURETERONEPHROSIS
-Ureteral stent to stay in place for approx 2 weeks, outpatient removal
- Griffith catheter placed for I/O and maximal drainage until stable
#Sepsis 2/2 to complicated UTI and ?Bacterial Bronchitis
-Cont cefepime and add back azithromycin
- f/u cultures
-IVF PRN
#Complicated UTI
-see above
# Severe bilateral Lower LOBE BRONCHITIS
Cont Azithromycin
-Duonebs
-hold steroids for now due to acute infection and immunocompromised state although may need to add if continued wheezing
#Acute Pancytopenia Likely secondary to Chemotherapy + sepsis
#Acute NEUTROPENIA
-Consult ONCOLOGY
-resolved
#Hypokalemia
-monitor and replete
#YANELY secondary to sepsis
Creat 1.1 > creat 0.7
-ivf prn
-resolved
#Hyponatremia
� Mild
� Continue to monitor
� Suspect hypovolemic related
#Breast cancer with NEW METS to along suture line of the left upper lobe pulmonary wedge 9 mm nodule, 2.9 cm opacity in the right lung
#Breast cancer known with mets left femur on current CHEMO
Per CT
3.9 mm 7.9 mm sclerotic lesion in the intertrochanteric left proximal femur suspicious for a small blastic osseous metastasis in the setting of
known breast cancer. A benign sclerotic bone island is alternative diagnostic
-Consult ONC
Appears to be new mets along suture line of the left upper lobe pulmonary wedge 9 mm nodule, 2.9 cm opacity in the right lung
Last Chemo on 05/28/24 gets 12 hour infusion q3 weeks via port Right upper chest wall
-Oncology
#Tachycardia
-restart BB due to reflex tachycardia
-monitor with sepsis
DVT prophylaxis
hsq
Full code
Total time spent on today's encounter was 50 minutes which included time spent in counseling the patient/family regarding diagnosis and treatment plan as listed above, goals of care, and symptom management. Case was discussed with nursing staff,
specialists, and care coordinators/case management. All labs and imaging personally reviewed by me. Remainder the time spent in detailed review of previous records, lab data, imaging, and other medical provider documentation.
Anticipated Discharge: > 48 hours
Subjective/Interval History
-
Date of Service: June 04, 2024
Feels better today, hungry
Objective Data
-
Labs:
Laboratory Results
06/04/24
10:37
WBC 1.8 L*
Hgb 8.5 L
Hct 25.8 L
Plt Count 64 L D
Sodium 134 L
Potassium 3.3 L
Chloride 106
Carbon Dioxide 24
BUN 17
Creatinine 0.7
Glucose 138 H
Calcium 7.7 L
Total Bilirubin 0.4
AST 30
ALT 28
Alkaline Phosphatase 60
Vital Signs:
Vital Signs
Temp Pulse Resp BP Pulse Ox
98.6 F 144 18 123/77 94
06/04/24 11:05 06/04/24 15:15 06/04/24 15:15 06/04/24 10:00 06/04/24 15:15
I&O
06/03/24 06/04/24 06/05/24
06:59 06:59 06:59
Intake Total 150 / 150
Output Total 825 / 825
Balance -675 / -675
Review of Systems
-
History Source: Patient
All other systems: Not reviewed unless documented
Data Reviewed
-
CT Scan: Report Reviewed by me
Labs: Labs Reviewed by me
[2024-06-04] MEDS: LR 1000 IV (16:12)
--- NOTE | 2024-06-04 16:27 | W.PN.URO.CBU ---
Today's Communication / Plan
-
Continue antibiotics
Maintain tinoco until stable
Assessment / Plan
-
63F on chemotherapy for metastatic breast cancer
R prox ureteral stone diagnosed 04/2024
Admitted for diarrhea, dehydration, flank pain, sepsis from persistent ureteral stone vs severe bronchitis
CT showing small R distal ureteral stone
s/p OR 06/03/24 for ureteroscopy, removal of R distal ureteral stone, R ureteral stent placement
- Continue broad spectrum antibiotics pending cultures
- Culture of mildly cloudy urine above the stone sent
- Ureteral stent to stay in place for approx 2 weeks, outpatient removal
- Tinoco catheter placed for I/O and maximal drainage until stable
Diagnosis
-
Date of Service: June 04, 2024
-
Patient Diagnosis:
Sepsis
R ureteral stone
metastatic breast cancer
Post Op s/p R ureteroscopy, stone removal, stent placement 06/03/24
Subjective
-
persistent tachycardia
Chills/shakes this afternoon
Poor PO intake
tolerating tinoco and stent
Objective
-
Vital Signs
Temp Pulse Resp BP Pulse Ox
98.6 F 144 18 123/77 94
06/04/24 11:05 06/04/24 15:15 06/04/24 15:15 06/04/24 10:00 06/04/24 15:15
Intake and Output
06/03/24 06/04/24 06/05/24
06:59 06:59 06:59
Intake Total 150 / 150
Output Total 825 / 825
Balance -675 / -675
Intake:
IV fluids (Total) 150 / 150
normosol 150 / 150
Output:
Urine, Tinoco 825 / 825
Laboratory Results
06/04/24 10:37
06/04/24 10:37
Physical Exam
-
General - pale, fatigued
- tinoco in place, dark yellow urine
Skin - warm & dry, stomatitis
Neuro - AOx3
[2024-06-04] MEDS: INDERAL 10 MG PO (16:30)
[2024-06-04] MEDS: VALTREX 500 MG PO (16:53)
[2024-06-04] MEDS: LIPITOR 10 MG PO (16:53)
[2024-06-04] MEDS: KCL 270 MEQ IV (16:56)
[2024-06-04] MEDS: TYLENOL 650 MG PO ×2 (17:02→21:05)
--- NOTE | 2024-06-04 18:18 | PTCARENOTE ---
Addendum entered by Azra Arnett RN 06/04/24 18:26:
Griffith care completed- urine output mirky brown with sediment, 600ml output this shift.
Mouth sores freq care completed- zovarax ointment x2 this shift. she will rinse them with nss bullets.
Original Note:
Received this am tele ST 120s-130s BP 123/77 - pain 1/10 back/ head/ lips- denied need for med intervention. OOB to chair approx 3 hours. Got back to bed, had neb tx and HRs sustaining 160s- BP 120s/80 Temp 99.1. Skin hot / dry she x/o 'being
freezing' chills noted. Multiple blankets removed, 1 liter bolus given, IV K rider infusing, Tylenol given for pain. Currently HR down to 110, chills subsided. Encouraging po fluids. SCDs on all day. Family at bedside all day.
[2024-06-04] MEDS: TOPAMAX 25 MG PO (21:00)
--- NOTE | 2024-06-04 21:15 | PTCARENOTE ---
Rec'd pt at change of shift. Pt AAOx3, forgetful, at bedside. Pt c/o mild headache, does have hx of migraines, but states that she has not had a migraine in 3yrs and that this does not feel like a migraine. Tylenol given per MAR. Will
continue to assess throughout shift. Griffith catheter in place draining dark urine with some bloody tinged urine in tubing. SCDs removed d/t no order and low plts, risk of bruising. Pt with lg, loose BM in bedpan. Hygiene care performed. Call harris
within reach. Bed alarm in place for pt safety, although pt has made no attempts.
[2024-06-05] VITALS (12 sets, daily range): BP systolic 94–137; BP diastolic 64–83
[2024-06-05] MEDS: ROXICODONE 5 MG PO ×2 (01:50→12:19)
[2024-06-05] MEDS: STERILE WATER FOR INJECTION 10 ML IV ×3 (04:54→20:15)
[2024-06-05] MEDS: MAXIPIME 2000 MG IV ×3 (04:54→20:15)
[2024-06-05 05:52] LABS: ALT (SGPT) 26 U/L (0-35); AST (SGOT) 31 U/L (14-36); Albumin 1.8 g/dl (3.5-5.0); Alkaline Phosphatase 54 U/L (38-126); Blood Urea Nitrogen 15 mg/dl (7-17); Calcium 7.6 mg/dl (8.4-10.2); Carbon Dioxide 24 mmol/L (22-30); Chloride 110 mmol/L (98-107); Estimated Creatinine Clearance 76 ml/min; Glucose 103 mg/dl (70-99); Potassium 3.6 mmol/L (3.5-5.1); Sodium 134 mmol/L (135-145); Total Bilirubin 0.3 mg/dl (0.2-1.3); Total Protein 3.5 g/dl (6.3-8.2); eGFR > 60.00
[2024-06-05 06:10] LABS: Hematocrit 22.8 % (37.0-47.0); Hemoglobin 7.5 g/dL (12.0-16.0); Mean Corp Hgb Conc. 32.9 g/dL (33.0-37.0); Mean Corpuscular Hgb 34.6 pg (27.0-31.0); Mean Corpuscular Volume 105.1 fL (81.0-99.0); Mean Platelet Volume 13.1 fL (7.4-10.4); Platelet Count 41 10^3/uL (130-400); Red Blood Cell Count 2.17 10^6/uL (4.20-5.40); Red Cell Dist. Width 14.7 % (11.5-14.5); White Blood Cell Count 1.3 10^3/uL (4.8-10.8)
[2024-06-05] MEDS: DUONEB 3 ML INH ×4 (06:11→19:37)
[2024-06-05] MEDS: TYLENOL 650 MG PO ×2 (09:08→16:53)
[2024-06-05] MEDS: OCEAN, SALINE MIST 2 SPRAYS NASAL (09:08)
[2024-06-05] MEDS: PAXIL 20 MG PO (09:09)
[2024-06-05] MEDS: FOLVITE 1 MG PO (09:09)
[2024-06-05] MEDS: VITAMIN D3 (cholecalciferol) 25 MCG PO (09:09)
[2024-06-05] MEDS: ZITHROMAX INFUSION 250 IV (09:10)
[2024-06-05] MEDS: PROTONIX 40 MG PO (09:10)
[2024-06-05] MEDS: INDERAL 10 MG PO ×2 (09:10→20:14)
[2024-06-05 10:42] LABS: Band Neutrophils 3 % (0-3); Lymphocytes 18 % (20-51); Monocytes 1 % (2-9); Segmented Neutrophils 78 % (42-75)
[2024-06-05 10:43] LABS: Platelets Checked Yes
[2024-06-05 10:44] LABS: Hypochromasia 1+; Macrocytosis 1+; Normal RBC Morphology No; Total Cells Counted 100
[2024-06-05] MEDS: LR 1000 IV (10:45)
[2024-06-05] MEDS: FLUSH (NSS) 1 FLUSH IV (12:17)
--- NOTE | 2024-06-05 13:35 | PTCARENOTE ---
C/o headaches unrelieved by Tylenol and prefers not to take home med as it causes tachycardia. PRN Roxycodone given- dozing now. ST on tele 110s-120s, BP 112/80. IVF bolus given x1 liter, IV antibx as ordered. Heparin locked LSC port. Appetite
fair- picking at trays- outer mouth blisters/ scabbed and bleeds intermittently - freq oral care rinsed with ns and zovarax ointment- has own toothbrush. Griffith with punch colored urine some clots/sediment noted in tubing- adequate amts. She is
drinking more today. Education provided to pt and son.
--- NOTE | 2024-06-05 15:41 | W.PN.URO.CBU ---
Today's Communication / Plan
-
Continue antibiotics, switch to PO per hospitalist
Remove tinoco in AM
Outpatient stent removal
Assessment / Plan
-
63F on chemotherapy for metastatic breast cancer
R prox ureteral stone diagnosed 04/2024
Admitted for diarrhea, dehydration, flank pain, sepsis from persistent ureteral stone vs severe bronchitis
CT showing small R distal ureteral stone
s/p OR 06/03/24 for ureteroscopy, removal of R distal ureteral stone, R ureteral stent placement
-
- Culture of mildly cloudy urine above the stone sent, result only small numbers of mixed dunia
- Negative culture suggestive of primary infectious issue being non-urologic
- Recommend continued abx course for total 7-10 day course. Can switch to a PO agent that covers any suspected respiratory dunia for bronchitis
- Hematuria mild, may be expected off and on until stent removed
- Ureteral stent to stay in place for approx 2 weeks, outpatient removal - office will call to schedule
- Tinoco catheter placed for I/O and maximal drainage until stable - tinoco removal tomorrow AM
Diagnosis
-
Date of Service: June 05, 2024
-
Patient Diagnosis:
Sepsis
R ureteral stone
metastatic breast cancer
Post Op s/p R ureteroscopy, stone removal, stent placement 06/03/24
Subjective
-
Feeling much better today
improved tachycardia
some hematuria
Objective
-
Vital Signs
Temp Pulse Resp BP Pulse Ox
98.4 F 120 25 112/81 96
06/05/24 11:05 06/05/24 13:00 06/05/24 13:00 06/05/24 12:00 06/05/24 11:54
Intake and Output
06/04/24 06/05/24 06/06/24
06:59 06:59 06:59
Intake Total 150 / 150 2410 / 2410 550 / 550
Output Total 825 / 825 700 / 700 800 / 800
Balance -675 / -675 1710 / 1710 -250 / -250
Intake:
Oral fluids 1140 / 1140 300 / 300
IV fluids (Total) 150 / 150 1000 / 1000
normosol 150 / 150
IV piggybacks 270 / 270 250 / 250
Output:
Urine, Tinoco 825 / 825 700 / 700 800 / 800
Laboratory Results
06/05/24 05:06
06/05/24 05:07
Physical Exam
-
General - well developed, well nourished
Chest - unlabored
Tinoco in place, light red urine
[2024-06-05] MEDS: ZOVIRAX OINTMENT 5% 1 APPLIC TOPICAL ×2 (16:27→20:15)
--- NOTE | 2024-06-05 17:07 | CM ---
Addendum entered by Charu Hassan RN 06/05/24 17:13:
Per nurses notes- tinoco d/c'ed today.
Original Note:
Patient with Hx breast CA on chemo. Room air. Tinoco in place. Receiving IV Abx. Per nurse assessment; forgetful, weak gait/transferring.
Met with patient and son Ulysses with [employer] on speaker phone while in patient room;
patient remained asleep for most of conversation.
The patient resides with her in a 1 story house with 1 [address].
She is independent in ADLs and ambulation using SPC.
The patient is assisted by her with her medications.
DME - [facility]
Prior VN arranged by [place]- unknown agency
No prior SNF.
PCP - Char Ryan
Pharmacy - [address], [place]
Message to Dr Adams requesting PT/OT Evals.
Plan follow up after seen by PT/OT.
--- NOTE | 2024-06-05 17:11 | PTCARENOTE ---
Griffith removed per order. DTV by 11pm
--- NOTE | 2024-06-05 17:22 | W.PN.HOSP.TC ---
Today's Communication/Plan
-
cont abx
f/u mrsa swab
tinoco removal tomorrow
monitor cbc and final cultures
Assessment / Plan
Assessment / Plan
Physical Exam
General: Comfortable, Conversant, Fever and Chills
HEENT: NormoCephalic, Anicteric, PERRLA, [place] Conjunctivae, No Ptosis and Neck Nontender
Respiratory: Wheezes (throughout both lung bo ), Rales and Rhonchi
Cardiac: S1/S2 and Regular Rhythm; No Murmur, Rub, Gallop, Peripheral Edema or Calf Tenderness
Breast: Deferred by me
GI: Soft, Non Distended, Normal Bowel Sounds and
Rectal: Deferred by Provider
Genito-urinary: Deferred by me
Musculoskeletal: No Clubbing, No Cyanosis and No Edema
Skin: Warm and Dry; No Rash or Jaundice
Neuro: AO x 3 (confused with some history and certain dates), Cranial Nerves Intact and No Sensory Deficits; No Slurred Speech, Facial Droop, Tremors or Sedated
Psych: Calm
#OBSTRUCTING RIGHT URETERAL STONE with SEVERE ACUTE RIGHT HYDROURETERONEPHROSIS
-Ureteral stent to stay in place for approx 2 weeks, outpatient removal
- Tinoco catheter placed for I/O and maximal drainage until stable
�Can remove Tinoco tomorrow
� Outpatient stent removal
#Sepsis 2/2 to Bacterial Bronchitis
-Cont cefepime and add back azithromycin
� Negative urine culture suggestive of nonneurological infection, suspect pulmonary
� Can switch to oral antibiotics upon discharge, most likely will offer either Augmentin or Levaquin
- f/u cultures
-IVF PRN
IVF as needed
# Severe bilateral Lower LOBE BRONCHITIS
Cont Azithromycin
-Duonebs
#Acute Pancytopenia Likely secondary to Chemotherapy + sepsis
#Acute NEUTROPENIA
-Consult ONCOLOGY
-Monitor with resuscitation
#Hypokalemia
-monitor and replete
#YANELY secondary to sepsis
Creat 1.1 > creat 0.7
-ivf prn
-resolved
#Hyponatremia
� Mild
� Continue to monitor
� Suspect hypovolemic related
#Breast cancer with NEW METS to along suture line of the left upper lobe pulmonary wedge 9 mm nodule, 2.9 cm opacity in the right lung
#Breast cancer known with mets left femur on current CHEMO
Per CT
3.9 mm 7.9 mm sclerotic lesion in the intertrochanteric left proximal femur suspicious for a small blastic osseous metastasis in the setting of
known breast cancer. A benign sclerotic bone island is alternative diagnostic
-Consult ONC
Appears to be new mets along suture line of the left upper lobe pulmonary wedge 9 mm nodule, 2.9 cm opacity in the right lung
Last Chemo on 05/28/24 gets 12 hour infusion q3 weeks via port Right upper chest wall
-Oncology
#Tachycardia
-restart BB due to reflex tachycardia
-monitor with sepsis
DVT prophylaxis
SCDs, discontinue HSQ due to thrombocytopenia
Full code
Total time spent on today's encounter was 52 minutes which included time spent in counseling the patient/family regarding diagnosis and treatment plan as listed above, goals of care, and symptom management. Case was discussed with nursing staff,
specialists, and care coordinators/case management. All labs and imaging personally reviewed by me. Remainder the time spent in detailed review of previous records, lab data, imaging, and other medical provider documentation.
Anticipated Discharge: 24 - 48 hours
Subjective/Interval History
-
Date of Service: June 05, 2024
Tachycardia slightly improved
Objective Data
-
Labs:
Laboratory Results
06/05/24 06/05/24
05:06 05:07
WBC 1.3 L*
Hgb 7.5 L
Hct 22.8 L
Plt Count 41 L D
Sodium 134 L
Potassium 3.6
Chloride 110 H
Carbon Dioxide 24
BUN 15
Creatinine 0.6
Glucose 103 H
Calcium 7.6 L
Total Bilirubin 0.3
AST 31
ALT 26
Alkaline Phosphatase 54
Vital Signs:
Vital Signs
Temp Pulse Resp BP Pulse Ox
98.4 F 114 16 112/81 96
06/05/24 11:05 06/05/24 15:43 06/05/24 15:43 06/05/24 12:00 06/05/24 11:54
I&O
06/04/24 06/05/24 06/06/24
06:59 06:59 06:59
Intake Total 150 / 150 2410 / 2410 1250 / 1250
Output Total 825 / 825 700 / 700 1900 / 1900
Balance -675 / -675 1710 / 1710 -650 / -650
Review of Systems
-
History Source: Patient
All other systems: Not reviewed unless documented
Data Reviewed
-
CT Scan: Report Reviewed by me
Labs: Labs Reviewed by me
--- NOTE | 2024-06-05 19:25 | PTCARENOTE ---
Noted having chills this pm, t max 100.1- Tylenol given for headache anyway. Sleeping post assessment. Attempted to give 1800 meds pt refused at this time she would like them a little later tonight did not feel good enough - passed on to next
shift to give with next med pass.
[2024-06-05] MEDS: VALTREX 500 MG PO (20:14)
[2024-06-05] MEDS: LIPITOR 10 MG PO (20:14)
[2024-06-05] MEDS: TOPAMAX 25 MG PO (22:09)
[2024-06-06] VITALS (21 sets, daily range): BP systolic 95–128; BP diastolic 61–84; PULSE 108–113; BMI 23.8
[2024-06-06] MEDS: STERILE WATER FOR INJECTION 10 ML IV ×3 (03:57→20:20)
[2024-06-06] MEDS: MAXIPIME 2000 MG IV ×3 (03:57→20:19)
[2024-06-06] MEDS: ZOVIRAX OINTMENT 5% 1 APPLIC TOPICAL ×2 (04:03→12:02)
--- NOTE | 2024-06-06 04:42 | PTCARENOTE ---
Pt with difficulty voiding throughout the night. Only able to void small amounts <100. Bladder scan for >500. St cath order obtained, st cathed for 550ml. Urine dark, brown, bloody. PRN ointment given for mouth sores. Pt with bloody drainage and
crusted scabs around mouth. Pt states that the ointment has been helping. Oral hygiene care performed. Reports occasional mild nausea throughout the night, but denies medication. L SC port without blood return, VAT notified.
--- NOTE | 2024-06-06 05:12 | VATNOTE ---
Unable to obtain blood from left SQ port, awaiting cathflo from pharmacy. Primary RN at bedside.
[2024-06-06] MEDS: CATHFLO/ACTIVASE 2 MG INTRACATH ×2 (05:28→09:37)
[2024-06-06] MEDS: DUONEB 3 ML INH ×4 (07:37→19:22)
--- NOTE | 2024-06-06 08:41 | VATNOTE ---
No blood return from left SQ port after cathflo dwell.
[2024-06-06] MEDS: INDERAL 10 MG PO ×2 (08:53→20:20)
[2024-06-06] MEDS: VITAMIN D3 (cholecalciferol) 25 MCG PO (08:53)
[2024-06-06] MEDS: FOLVITE 1 MG PO (08:53)
[2024-06-06] MEDS: PROTONIX 40 MG PO (08:53)
[2024-06-06] MEDS: PAXIL 20 MG PO (08:53)
[2024-06-06] MEDS: ZOVIRAX OINTMENT 5% TOPICAL (08:56)
--- NOTE | 2024-06-06 09:00 | PTCARENOTE ---
Patient received from shift engineer. Patient resting comfortably in bed. AAO, VSS. No events noted overnight. No complaints of pain at this time. Currently on Room Air. Left port with no blood return, IV team working on fixing. Labs to be drawn
once line is working. Continuing ABX. No test scheduled for today at this time. Call harris in reach.
--- NOTE | 2024-06-06 09:39 | VATNOTE ---
Cathflo activase 2mg instilled in left SQ for withdraw occlusion
--- NOTE | 2024-06-06 10:05 | W.PN.URO.CBU ---
Today's Communication / Plan
-
- Ureteral stent to stay in place for approx 2 weeks, outpatient removal - office will call to schedule
CIC prn inability to void
Assessment / Plan
-
63F on chemotherapy for metastatic breast cancer
R prox ureteral stone diagnosed 04/2024
s/p OR 06/03/24 for ureteroscopy, removal of R distal ureteral stone, R ureteral stent placement
urinary retention
- Negative urine culture indicative of primary infectious issue being non-urologic
Diagnosis
-
Date of Service: June 06, 2024
-
Patient Diagnosis:
Sepsis -- urine cx negative
R ureteral stone
metastatic breast cancer
Post Op s/p R ureteroscopy, stone removal, stent placement 06/03/24
Subjective
-
required straight cath of bladder for 550 ml
Objective
-
Vital Signs
Temp Pulse Resp BP Pulse Ox
98.8 F 116 25 122/77 92
06/06/24 07:24 06/06/24 08:53 06/06/24 07:40 06/06/24 08:53 06/06/24 07:40
Intake and Output
06/05/24 06/06/24 06/07/24
06:59 06:59 06:59
Intake Total 2410 / 2410 1250 / 1250
Output Total 700 / 700 2525 / 2525
Balance 1710 / 1710 -1275 / -1275
Intake:
Oral fluids 1140 / 1140 1000 / 1000
IV fluids (Total) 1000 / 1000
IV piggybacks 270 / 270 250 / 250
Output:
Urine, Griffith 700 / 700 1900 / 1900
Urine, Voided 75 / 75
Straight cath output 550 / 550
negative urine cx
Physical Exam
-
General - well developed, well nourished, no acute distress
Chest - clear bilaterally
Abdomen - soft, non-tender, positive bowel sounds, no CVAT, no incisional pain or distention
Genitalia - normal
Rectal - normal
Skin - warm & dry with no rash
Neuro - AOx3, no motor deficits
Extremities - no clubbing, no cyanosis, no edema
Incision - clean, dry
Dressing - clean, dry, intact
--- NOTE | 2024-06-06 11:33 | VATNOTE ---
Positive blood return from SQ port after 2nd cathflo dwell.
[2024-06-06] MEDS: ZITHROMAX INFUSION 250 IV (11:50)
[2024-06-06 12:19] LABS: Hemoglobin 6.9 g/dL (12.0-16.0); Mean Corp Hgb Conc. 34.5 g/dL (33.0-37.0); Mean Corpuscular Hgb 33.8 pg (27.0-31.0); Mean Platelet Volume 14.4 fL (7.4-10.4); Platelet Count 26 10^3/uL (130-400); Red Blood Cell Count 2.04 10^6/uL (4.20-5.40); Red Cell Dist. Width 14.3 % (11.5-14.5); White Blood Cell Count 0.7 10^3/uL (4.8-10.8)
[2024-06-06 12:31] LABS: ALT (SGPT) 25 U/L (0-35); AST (SGOT) 32 U/L (14-36); Albumin 1.9 g/dl (3.5-5.0); Alkaline Phosphatase 54 U/L (38-126); Blood Urea Nitrogen 17 mg/dl (7-17); Calcium 7.6 mg/dl (8.4-10.2); Carbon Dioxide 20 mmol/L (22-30); Chloride 107 mmol/L (98-107); Estimated Creatinine Clearance 76 ml/min; Glucose 78 mg/dl (70-99); Potassium 2.8 mmol/L (3.5-5.1); Sodium 132 mmol/L (135-145); Total Bilirubin 0.3 mg/dl (0.2-1.3); Total Protein 3.9 g/dl (6.3-8.2); eGFR > 60.00
[2024-06-06 13:44] LABS: Atypical Lymphocytes 4 %; Band Neutrophils 1 % (0-3); Eosinophils 3 % (0-6); Hypochromasia 1+; Lymphocytes 53 % (20-51); Macrocytosis 1+; Monocytes 11 % (2-9); Normal RBC Morphology No; Platelets Checked Yes; Segmented Neutrophils 28 % (42-75)
[2024-06-06 13:45] LABS: Smudge Cells 1+; Total Cells Counted 100
[2024-06-06 13:46] LABS: Absolute Neutrophils -Man Diff 0.2 10^3/uL (1.4-6.5)
[2024-06-06] MEDS: LR 500 IV (14:13)
[2024-06-06 14:30] LABS: Hemoglobin 6.4 g/dL (12.0-16.0)
--- NOTE | 2024-06-06 15:00 | PTCARENOTE ---
Patient with low Hgb, repeat was done confirming. PRBC ordered
--- NOTE | 2024-06-06 15:07 | CON.ID ---
Consultation
-
Date/Time Consultation Requested: June 06, 2024 1227
Date/Time Consultation Performed: June 06, 2024 1510
Requesting Provider: Dr. Kennedy Adams
Performing Provider: Dr. Marcie Garsia
Reason for Consultation: Sepsis
Chief Complaint / Past History
Chief Complaint
dysuria and flank pain
History of Present Illness
History obtained from review of medical records, from daughter at bedside and from the patient. She is a 63-year-old female with history of non-small cell lung cancer status post wedge resection left upper and left lower lobe in 2020, recent
findings of metastases to the brain and femur on February 2024, status post brain radiation, followed by chemotherapy infusion beginning of May, last received May 28. She was on a tapering course of dexamethasone for the brain metastases.
Patient with history of nephrolithiasis and presented to the hospital on June 03 with 2-day history of dysuria with right flank pain. She was hypotensive responded to fluids. CT of the abdomen pelvis showed moderate to severe right
hydronephrosis with obstructing stone. She was started on cefepime. She was taken to the OR the same day status post laser lithotripsy, stone extraction, right ureter stent placement. There was cloudy urine behind the stone which was sent for
culture and resulted as 20,000 CFU mixed dunia. Since procedure, the right flank pain resolved. She still has residual dysuria. Patient reports that she has been having dry cough for about 2 months. She had chest x-ray in March which was
negative for infiltrates. However over the last week her cough had gotten worse. Her PCP prescribed azithromycin which she took 1 dose the day prior to admission. Azithromycin resumed in the hospital along with the cefepime. Cough is improving.
Patient also has extensive oral labialis lesions. Lesions started after chemotherapy. Initially the lesions were very mild then progressively had gotten worse involving both lips. Lesions are very painful. She is on Valacyclovir 500 mg daily for
history of recurrent genital herpes. She never had cold sores in the past. She is currently on topical acyclovir without improvement. Patient has intermittent diarrhea but none today. No abdominal pain. No nausea or vomiting. She is currently
complaining of frontal headache from migraines. No neck stiffness. No mental status change. No recent ill contacts. Patient's white count has been trending down and she is now neutropenic today. She is pancytopenic, platelet count 26,
hemoglobin 6.4.
Past History
Additional Past Medical History:
Non-small cell lung cancer s/p wedge resection MAKENZIE and LLL 2020, with mets to brain and bone (dx 02/2024) s/p brain radiation, started chemo early 05/2024
Port placement
Hypothyroidism
Migraine headache
Dyslipidemia
Insomnia
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
Remote hx left breast CA (2009) s/p left breast mastectomy, chemo, in remission
Right breast reconstruction
Allergy History:
Penicillins Allergy (Verified 10/30/14 16:35)
Hives
Medications Reviewed: Yes
Current Antibiotics:
Cefepime d4
Azithromycin d4
Social History
Tobacco: Former Smoker
Alcohol: Occasional
Drug: None
Personal:
Family History
Family History: Not Pertinent
Review of Systems
Review of Systems
General: Negative Fever or Chills
HEENT: Negative Stiff Neck, Sinus Problems or Pharyngitis
Cardiovascular: Edema; Negative Chest Pain
Respiratory: Cough; Negative Dyspnea or Sputum Production
Gasteroenterology: Negative Nausea or Vomiting
Endocrine: Weakness
Skin / Hair / Nails: Lesions (lips)
Neurological: Negative Dizziness
All systems: All other systems were reviewed and were negative
Vital Signs
Temp Pulse Resp BP Pulse Ox
98.4 F 101 22 122/77 92
06/06/24 11:09 06/06/24 11:49 06/06/24 11:49 06/06/24 08:53 06/06/24 07:40
Physical Exam
Physical Exam
Constitutional: Acutely Ill and Chronically Ill
Head: Other (No frontal or maxillary sinus tenderness)
Eyes: No Conjunctival Hemorrhage and Sclera Anicteric
Oral: No Thrush and Other (Extensive dark-hemorrhagic multiple vesicular lesions across both lips, some in hard and soft palate )
Cardiovascular: Regular Rate and S1/S2
Pulmonary: Clear
Gastrointestinal: Soft, Non Tender, Non Distended and Normal Bowel Sounds
Genito-Urinary: Negative CVA Tenderness
Extremities: Edema (Bilateral LE 2+)
Skin: Other (few petechial lesions Left foot >R foot)
Neurological: AO x 3; Negative Meningeal Signs
Lines: Port (L CW no erythema)
Lab / Diagnostic Study Results
06/06/24 14:17
06/06/24 11:29
Abs Immat Gran (auto) 0.0 10^3/uL (0-0.05) 06/04/24 10:37
Absolute Neuts (auto) 1.4 10^3/uL (1.4-6.5) 06/04/24 10:37
Absolute Lymphs (auto) 0.4 10^3/uL (1.2-3.4) L 06/04/24 10:37
Absolute Monos (auto) 0.0 10^3/uL (0.1-0.6) L 06/04/24 10:37
Absolute Basos (auto) 0.0 10^3/uL (0-0.2) 06/04/24 10:37
Total Counted 100 06/06/24 11:29
Immature Gran % 1.7 % (0-0.5) H 06/04/24 10:37
Neutrophils % 77.9 % (42.2-75.2) H 06/04/24 10:37
Lymphocytes % 19.8 % (20.5-51.1) L 06/04/24 10:37
Monocytes % 0.6 % (1.7-9.3) L 06/04/24 10:37
Eosinophils % 0.0 % (0-6) 06/04/24 10:37
Basophils % 0.0 % (0-2) 06/04/24 10:37
Abs Neuts (Manual) 0.2 10^3/uL (1.4-6.5) L* 06/06/24 11:29
Segmented Neutrophils 28 % (42-75) L 06/06/24 11:29
Band Neutrophils 1 % (0-3) 06/06/24 11:29
Lymphocytes (Manual) 53 % (20-51) H 06/06/24 11:29
Eosinophils (Manual) 3 % (0-6) 06/06/24 11:29
Urine WBC 0-2 /HPF (0-5) 06/03/24 21:23
Ur Squamous Epith Cells 6-10 /LPF (Few) 06/03/24 21:23
Microbiology Results
Micro:
06/05/24 20:20 Nasal Screen MRSA (PCR) - Final
Nose MRSA not detected - performed by PCR methodology.
06/03/24 19:24 Blood Culture - Preliminary
Blood/Venous No Growth in 48 hours- Final report to follow
06/03/24 19:24 Blood Culture - Preliminary
Blood/Venous No Growth in 48 hours- Final report to follow
06/03/24 18:28 Urine Culture - Final
Urine
06/03/24 14:44 Influenza Types A & B ([facility]) - Final
Nasal Swab Negative for Influenza A & B, NAAT
Negative results must be combined with clinical observations
and patient history.
Nucleic Acid Amplification test (NAAT)performed on the
[employer] platform.
06/03/[address]: SEVERE BILATERAL LOWER LOBE BRONCHITIS.
06/03/24 CT a/p: MODERATE to SEVERE ACUTE RIGHT HYDROURETERONEPHROSIS secondary to a 3.9 mm obstructing calculus at the right ureterovesical junction.
2. Moderate distention of the urinary bladder.
3. Moderate distention of the gallbladder.
4. Small hiatal hernia.
5. Chronic colitis in the cecum and ascending colon.
6. 7.9 mm sclerotic lesion in the intertrochanteric left proximal femur suspicious for a small blastic osseous metastasis in the setting of known breast cancer. A benign sclerotic bone island is alternative diagnostic possibility.
Assessment / Plan
# Neutropenia/profound pancytopenia from chemo
# lung ca with mets to brain and bone currently on chemo at [facility]
-Neutropenic precaution
- Hem/Onc following
# Severe bilateral bronchitis with cough
- Continue Cefepime for now
- No need for Azithromycin.
- When neutropenia improves, will transition to po abx.
# Right obstructive uropathy
- 06/03 s/p lithotripsy, stone extraction, ureter stent placed
Cloudy urine behind stone, urine sent for cx but not done.
The Ucx with 20K mixed dunia was collected from ED. Offending organism may be behind the stone and not in bladder.
- Continue empiric cefepime for now.
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
- Start Acyclovir 5mg/kg IV q8h.
- DC topical acyclovir and valtrex 500mg qd.
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
Non-small cell lung cancer s/p wedge resection MAKENZIE and LLL 2020, with recent mets to brain and bone (dx 02/2024) s/p brain radiation, started chemo early 05/2024
Port placement
Hypothyroidism
Migraine headache
Dyslipidemia
Insomnia
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
Remote hx stage 0 left breast CA (2009) s/p left breast mastectomy, chemo, in remission
Bilateral breast reconstruction
[2024-06-06] MEDS: KCL 270 MEQ IV (15:20)
[2024-06-06] MEDS: KCL ELIXIR 40 MEQ PO (15:22)
--- NOTE | 2024-06-06 15:47 | W.PN.HOSP.TC ---
Today's Communication/Plan
-
cont abx although ID consulted for assistance
Onc consulted for pancytopenia
transfuse prbc, monitor cbc
Assessment / Plan
Assessment / Plan
Physical Exam
General: Comfortable, Conversant, Fever and Chills
HEENT: NormoCephalic, Anicteric, PERRLA, [place] Conjunctivae, No Ptosis and Neck Nontender; diffuse scabbing around the lips
Respiratory: Wheezes (throughout both lung bo ), Rales and Rhonchi
Cardiac: S1/S2 and Regular Rhythm; No Murmur, Rub, Gallop, Peripheral Edema or Calf Tenderness
Breast: Deferred by me
GI: Soft, Non Distended, Normal Bowel Sounds and
Rectal: Deferred by Provider
Genito-urinary: Griffith removed
Musculoskeletal: No Clubbing, No Cyanosis and No Edema
Skin: Warm and Dry; No Rash or Jaundice
Neuro: AO x 3 (confused with some history and certain dates), Cranial Nerves Intact and No Sensory Deficits; No Slurred Speech, Facial Droop, Tremors or Sedated
Psych: Calm
#OBSTRUCTING RIGHT URETERAL STONE with SEVERE ACUTE RIGHT HYDROURETERONEPHROSIS
-Ureteral stent to stay in place for approx 2 weeks, outpatient removal
- Griffith catheter placed for I/O and maximal drainage until stable
� Griffith catheter removed
-The ureteral stent to stay in place for 2 weeks
-Outpatient removal of stent, follow-up urology outpatient
-A straight cath as needed if inability to void
#Sepsis 2/2 to Bacterial Bronchitis
-Cont cefepime and add back azithromycin
� Negative urine culture suggestive of nonneurological infection, suspect pulmonary
� Can switch to oral antibiotics upon discharge
- f/u cultures, negative
-IVF PRN
�ID consulted
�IVF as needed
# Severe bilateral Lower LOBE BRONCHITIS
Cont Azithromycin
-Duonebs
� ID consulted due to immunocompromise state
#Acute Pancytopenia Likely secondary to Chemotherapy
#Acute anemia, secondary to chemotherapy
� No evidence of active GI bleeding, acute blood loss
-Consulted oncology
-Monitor with resuscitation
� Transfuse hemoglobin today
� Maintain hemoglobin greater than 7
� Neutropenic precautions
#Hypokalemia
-monitor and replete
�Dietary consult
#YANELY secondary to sepsis
Creat 1.1 > creat 0.7
-ivf prn
-resolved
#Hyponatremia
� Mild
� Continue to monitor
� Suspect hypovolemic related
#Breast cancer with NEW METS to along suture line of the left upper lobe pulmonary wedge 9 mm nodule, 2.9 cm opacity in the right lung
#Breast cancer known with mets left femur on current CHEMO
Per CT
3.9 mm 7.9 mm sclerotic lesion in the intertrochanteric left proximal femur suspicious for a small blastic osseous metastasis in the setting of
known breast cancer. A benign sclerotic bone island is alternative diagnostic
-Consult ONC
Appears to be new mets along suture line of the left upper lobe pulmonary wedge 9 mm nodule, 2.9 cm opacity in the right lung
Last Chemo on 05/28/24 gets 12 hour infusion q3 weeks via port Right upper chest wall
-Oncology
#Tachycardia
-restart BB due to reflex tachycardia
-monitor with sepsis
DVT prophylaxis
SCDs, discontinue HSQ due to thrombocytopenia
Full code
Total time spent on today's encounter was 55minutes which included time spent in counseling the patient/family regarding diagnosis and treatment plan as listed above, goals of care, and symptom management. Case was discussed with nursing staff,
specialists, and care coordinators/case management. All labs and imaging personally reviewed by me. Remainder the time spent in detailed review of previous records, lab data, imaging, and other medical provider documentation.
Anticipated Discharge: 24 - 48 hours
Subjective/Interval History
-
Date of Service: June 06, 2024
Feels better although worsening pancytopenia
Objective Data
-
Labs:
Laboratory Results
06/06/24 06/06/24
11:29 14:17
WBC 0.7 L*
Hgb 6.9 L* 6.4 L*
Hct 20.0 L*
Plt Count 26 L* D
Sodium 132 L
Potassium 2.8 L
Chloride 107
Carbon Dioxide 20 L
BUN 17
Creatinine 0.6
Glucose 78
Calcium 7.6 L
Total Bilirubin 0.3
AST 32
ALT 25
Alkaline Phosphatase 54
Vital Signs:
Vital Signs
Temp Pulse Resp BP Pulse Ox
98.4 F 101 22 122/77 92
06/06/24 11:09 06/06/24 11:49 06/06/24 11:49 06/06/24 08:53 06/06/24 07:40
I&O
06/05/24 06/06/24 06/07/24
06:59 06:59 06:59
Intake Total 2410 / 2410 1250 / 1250
Output Total 700 / 700 2525 / 2525
Balance 1710 / 1710 -1275 / -1275
Review of Systems
-
History Source: Patient
All other systems: Not reviewed unless documented
Data Reviewed
-
CT Scan: Report Reviewed by me
Labs: Labs Reviewed by me
--- NOTE | 2024-06-06 15:54 | CON.ONC ---
Impression
Impression
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
Plan
Plan
CSF
ID input
transfuse leukodepletd pRBCs as clinically indicated
Transfuse leukodepleted platelets for bleeding with plts <50k or <10 if not bleeding
Daily CBC with diff
will followup
Patient History
History of Present Illness
hx per pt/ and daughter Yessica
63yo WF diagnosed with adenocarcinoma of the lung in 2020 s/p metastatectomies of two separate lobar nodules @ [facility] with Dr Fernanda Hay then followed with surveillance CT scan when she was found in the fall 2023 with new/enlarging pulm nodules
promping PET scan for which diffuse mets to bone/lung noted as well as brain mets-- she had XRT to the brain w/ Dr Ino mendosa after the followed by chemoimmunotherapy consisting of Carbo/Pemetrexed/ Amivantamab completing last
cycles approx 10 days ago -- no CSF to their knowledge; she is admitted with recurrent right flank pain 06/03/2024 for which severe right hydroureter noted resulting in operative extraction with placement of ureteral stent ( prior admission 04/2024
noted same)
Past-Medical/Surgical History
migraines; HTN;
Patient Medication
�Medication �Instructions �Recorded �Confirmed �Last Taken �Type
acyclovir 5 % topical ointment 1 applic topical QIDPRN PRN unknown 06/03/24 06/03/24 Unknown History
atorvastatin 10 mg tablet 10 mg PO QPM High Cholesterol 06/03/24 06/03/24 Unknown History
cholecalciferol (vitamin D3) 25 25 mcg PO DAILY Supplement 06/03/24 06/03/24 Unknown History
mcg (1,000 unit) tablet
dexamethasone 0.5 mg tablet 0.5 mg PO DAILY Anti-Inflammatory 06/03/24 06/03/24 Unknown History
dexamethasone 4 mg tablet 4 mg PO USEASDIRECTD 06/03/24 06/03/24 Unknown History
Anti-Inflammatory
diphenhydramine 25 2 tab PO HSPRN PRN sleep 06/03/24 06/03/24 Unknown History
mg-acetaminophen 500 mg tablet
(Tylenol PM Extra Strength)
diphenhydramine HCl 25 mg capsule 25 mg PO HSPRN PRN sleep 06/03/24 06/03/24 Unknown History
(Benadryl)
erenumab-aooe 70 mg/mL 70 mg SC QMONTH 06/03/24 06/03/24 Unknown History
subcutaneous auto-injector
(Aimovig Autoinjector)
folic acid 1 mg tablet 1 mg PO DAILY Supplement 06/03/24 06/03/24 Unknown History
lidocaine-prilocaine 2.5 %-2.5 % 1 applic topical DAILYPRN PRN 06/03/24 06/03/24 Unknown History
topical cream topical pain/prior to port access
melatonin 5 mg tablet 5 mg PO HSPRN PRN sleep 06/03/24 06/03/24 Unknown History
olanzapine 5 mg tablet 5 mg PO USEASDIRECTD Mental 06/03/24 06/03/24 Unknown History
Health/Anxiety
ondansetron HCl 8 mg tablet 8 mg PO Q8HPRN PRN nausea/vomiting 06/03/24 06/03/24 Unknown History
pantoprazole 40 mg tablet,delayed 40 mg PO DAILY Gastrointestinal 06/03/24 06/03/24 Unknown History
release Issue
paroxetine HCl 20 mg tablet 20 mg PO DAILY Mental 06/03/24 06/03/24 Unknown History
Health/Anxiety
propranolol 10 mg tablet 10 mg PO BID Blood Pressure 06/03/24 06/03/24 Unknown History
rizatriptan 10 mg tablet 10 mg PO DAILYPRN PRN migraine 06/03/24 06/03/24 Unknown History
topiramate 25 mg tablet 25 mg PO HS 06/03/24 06/03/24 Unknown History
valacyclovir 500 mg tablet 500 mg PO QPM Infection 06/03/24 06/03/24 Unknown History
Active Medications
Generic Name Dose Route Start Last Admin
Trade Name Freq PRN Reason Stop Dose Admin
Acetaminophen 650 mg 06/03/24 21:14 06/05/24 16:53
Acetaminophen 325 Mg Tablet PO 07/01/24 21:13 650 mg
Q4HPRN PRN Administration
mild pain/FIELDS/temp> 100.4F
Acyclovir Sodium 1 applic 06/03/24 21:14 06/06/24 12:02
Acyclovir 5% (Ointment) 15 Gram Tube TOPICAL 06/13/24 21:13 1 applic
QIDPRN PRN Administration
See Label Comments
Albuterol/Ipratropium 3 ml 06/04/24 12:00 06/06/24 11:44
Ipratropium 0.5/Albuterol 3 Mg (3 Ml Ampul) INH 3 ml
R QID KYREE Administration
Protocol
Albuterol/Ipratropium 3 ml 06/04/24 11:46
Ipratropium 0.5/Albuterol 3 Mg (3 Ml Ampul) INH
R Q4HPRN PRN
sob,wheezing
Protocol
Atorvastatin Calcium 10 mg 06/04/24 18:00 06/05/24 20:14
Atorvastatin (Lipitor) 10 Mg Tablet PO 07/02/24 17:59 10 mg
QPM KYREE Administration
Azithromycin 500 mg 06/07/24 08:00
Azithromycin 250 Mg Tablet PO
DAILY KYREE
Cefepime HCl 2,000 mg 06/03/24 20:00 06/06/24 11:50
Cefepime Hcl 2,000 Mg/12.5 Ml Vial IV 2,000 mg
Q8H KYREE Administration
Cholecalciferol 25 mcg 06/04/24 08:00 06/06/24 08:53
Cholecalciferol (Vitamin D3) 25 Mcg Tablet (1,000 Units) PO 07/02/24 07:59 25 mcg
DAILY KYREE Administration
Diphenhydramine HCl 25 mg 06/03/24 21:14
Diphenhydramine 25 Mg Capsule PO 07/01/24 21:13
HSPRN PRN
sleep
Folic Acid 1 mg 06/04/24 08:00 06/06/24 08:53
Folic Acid 1 Mg Tablet PO 07/02/24 07:59 1 mg
DAILY KYREE Administration
Heparin Sodium (Porcine) 500 unit 06/03/24 23:00 06/06/24 11:35
Heparin Flush Pf (100 Unit/Ml) 5 Ml Syringe IV 07/01/24 22:59 500 unit
PER PROTOCOL PRN Administration
SUBQ PORT FLUSH
Hydromorphone HCl 0.5 mg 06/03/24 21:14
Hydromorphone 0.5 Mg/0.5 Ml Syringe IV 06/17/24 21:13
Q4HPRN PRN
severe pain
Potassium Chloride 40 meq/ 270 mls @ 67.5 mls/hr 06/06/24 12:35 06/06/24 15:20
Sodium Chloride IV 06/06/24 16:34 270 mls
NOW STA Administration
Melatonin 5 mg 06/03/24 21:14
Melatonin 5 Mg Tablet PO 07/01/24 21:13
HSPRN PRN
sleep
Ondansetron HCl 4 mg 06/03/24 21:14
Ondansetron 4 Mg/2 Ml Vial IV 07/01/24 21:13
Q6HPRN PRN
nausea and vomiting
Oxycodone HCl 5 mg 06/03/24 21:14 06/05/24 12:19
Oxycodone 5 Mg Regular Release Tablet PO 06/17/24 21:13 5 mg
Q4HPRN PRN Administration
moderate pain
Pantoprazole Sodium 40 mg 06/04/24 08:00 06/06/24 08:53
Pantoprazole 40 Mg Delayed Release Tablet PO 07/02/24 07:59 40 mg
DAILY KYREE Administration
Paroxetine HCl 20 mg 06/04/24 08:00 06/06/24 08:53
Paroxetine 20 Mg Tablet PO 07/02/24 07:59 20 mg
DAILY KYREE Administration
Propranolol HCl 10 mg 06/04/24 20:00 06/06/24 08:53
Propranolol 10 Mg Regular Release Tablet PO 07/02/24 19:59 10 mg
BID KYREE Administration
Rizatriptan Benzoate 10 mg 06/03/24 22:29
Rizatriptan 10 Mg (Orally Disintegrating) Tablet PO 07/01/24 22:28
DAILYPRN PRN
migraine
Sodium Chloride 0 flush 06/03/24 20:00 06/05/24 12:17
Sodium Chloride 0.9% (Flush) Syringe IV 07/01/24 19:59 1 flush
PER PROTOCOL KYREE Administration
Sodium Chloride 2 sprays 06/05/24 01:47 06/05/24 09:08
Sodium Chloride 0.65% Nasal Rogers 45 Ml Bottle NASAL 07/03/24 01:46 2 sprays
QIDPRN PRN Administration
nasal dryness/sinus headache
Sterile Water 10 ml 06/03/24 20:00 06/06/24 11:50
Sterile Water For Injection 10 Ml Vial IV 07/01/24 19:59 10 ml
Q8H KYREE Administration
Topiramate 25 mg 06/03/24 22:00 06/05/24 22:09
Topiramate 25 Mg Tablet PO 07/01/24 21:59 25 mg
HS KYREE Administration
Valacyclovir HCl 500 mg 06/04/24 18:00 06/05/24 20:14
Valacyclovir Hcl 500 Mg Tablet PO 06/14/24 17:59 500 mg
QPM KYREE Administration
Review of Systems
-
All Other Systems: Reviewed and Negative
Physical Exam
-
General: No Apparent Distress and Comfortable
HEENT: Moist Mucous Membranes and Other (perioral blistering/ hemorrhagic cellulitis)
Cardiology: Normal Sinus Rhythm
Pulmonary: Clear
GI: Soft and Normal Bowel Sounds
Musculoskeletal: No Clubbing, No Cyanosis and No Edema
Extremities: Pulses Present
Neurology: Non Focal
Skin: Warm, Dry and Rash
Psych: Calm
Labs
Lab Results
WBC 0.7 10^3/uL (4.8-10.8) L* 06/06/24 11:29
RBC 2.04 10^6/uL (4.20-5.40) L 06/06/24 11:29
Hgb 6.4 g/dL (12.0-16.0) L* 06/06/24 14:17
Hct 20.0 % (37.0-47.0) L* 06/06/24 11:
MCV 98.0 fL (81.0-99.0) 06/06/24 11:
MCH 33.8 pg (27.0-31.0) H 06/06/24 11:29
MCHC 34.5 g/dL (33.0-37.0) 06/06/24 11:
RDW 14.3 % (11.5-14.5) 06/06/24 11:29
Plt Count 26 10^3/uL (130-400) L* D 06/06/24 11:
MPV 14.4 fL (7.4-10.4) H 06/06/24 11:29
Abs Immat Gran (auto) 0.0 10^3/uL (0-0.05) 06/04/24 10:37
Absolute Neuts (auto) 1.4 10^3/uL (1.4-6.5) 06/04/24 10:37
Absolute Lymphs (auto) 0.4 10^3/uL (1.2-3.4) L 06/04/24 10:37
Absolute Monos (auto) 0.0 10^3/uL (0.1-0.6) L 06/04/24 10:37
Absolute Eos (auto) 0.0 10^3/uL (0-0.7) 06/04/24 10:37
Absolute Basos (auto) 0.0 10^3/uL (0-0.2) 06/04/24 10:37
Immature Gran % 1.7 % (0-0.5) H 06/04/24 10:37
Neutrophils % 77.9 % (42.2-75.2) H 06/04/24 10:37
Lymphocytes % 19.8 % (20.5-51.1) L 06/04/24 10:37
Monocytes % 0.6 % (1.7-9.3) L 06/04/24 10:37
Eosinophils % 0.0 % (0-6) 06/04/24 10:37
Basophils % 0.0 % (0-2) 06/04/24 10:37
Creatinine 0.6 mg/dL (0.6-1.0) 06/06/24 11:29
Vital Signs
Vital Signs
Temp Pulse Resp BP Pulse Ox
98.4 F 101 22 122/77 92
06/06/24 11:09 06/06/24 11:49 06/06/24 11:49 06/06/24 08:53 06/06/24 07:40
[2024-06-06] MEDS: ZOVIRAX INJECTION 56 MG IV (18:15)
[2024-06-06] MEDS: LIPITOR 10 MG PO (18:17)
[2024-06-06] MEDS: GRANIX 480 MCG SC (18:17)
[2024-06-06] MEDS: LASIX 20 MG IV (22:16)
[2024-06-06] MEDS: ROXICODONE 5 MG PO (22:43)
[2024-06-06] MEDS: TOPAMAX 25 MG PO (22:43)
--- NOTE | 2024-06-06 22:52 | PTCARENOTE ---
Pt assessed. Lethargic but responsive. states pt is forgetful at times. Moves all extremities x4. (+) sensation x4. PERRLA 3. ST on monitor. (+) edema to BLE greater on R than L. Legs elevated. Pt was on RA at change of shift. After plt
infusion pt c/o 'drowning' and audible rhonchi noted. 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 Pt states she is now feeling better. Lungs are clearer to auscultation and Dyspnea appears to have resolved. CXR done. Abd soft
nontender. Pt c/o back pain. Meds provided as requested. Pt using bedpan. Sores to mouth tended to. No other open areas noted. No current s/s of distress assessed at this time. Will continue to monitor.
[2024-06-07] VITALS (18 sets, daily range): BP systolic 93–125; BP diastolic 57–78; BMI 24.2
--- NOTE | 2024-06-07 01:53 | PTCARENOTE ---
1 unit PRBC's hung as ordered. Tolerating well with no s/s of tx rx. Pt states 'this is the best I've felt in days'. Discussed possible tinoco cath insertion if pt remains having issues urinating. Will bladder scan as per order. No s/s of distress
assessed. Will continue to monitor.
[2024-06-07] MEDS: DILAUDID 0.5 MG IV (03:24)
[2024-06-07] MEDS: STERILE WATER FOR INJECTION 10 ML IV ×3 (05:21→19:41)
[2024-06-07] MEDS: MAXIPIME 2000 MG IV ×3 (05:21→19:41)
[2024-06-07] MEDS: ZOVIRAX INJECTION 56 MG IV ×3 (05:21→16:53)
[2024-06-07 05:22] LABS: Hematocrit 24.5 % (37.0-47.0); Hemoglobin 8.2 g/dL (12.0-16.0); Mean Corp Hgb Conc. 33.5 g/dL (33.0-37.0); Mean Corpuscular Hgb 32.9 pg (27.0-31.0); Mean Corpuscular Volume 98.4 fL (81.0-99.0); Mean Platelet Volume 11.8 fL (7.4-10.4); Platelet Count 37 10^3/uL (130-400); Red Blood Cell Count 2.49 10^6/uL (4.20-5.40); Red Cell Dist. Width 15.5 % (11.5-14.5); White Blood Cell Count 0.9 10^3/uL (4.8-10.8)
[2024-06-07 05:33] LABS: APTT 34.7 Sec (23.4-35.0); Fibrinogen 307 MG/DL (199-459); INR 1.18; PT 15.3 Sec (11.4-14.6)
[2024-06-07 05:44] LABS: ALT (SGPT) 25 U/L (0-35); AST (SGOT) 37 U/L (14-36); Albumin 1.8 g/dl (3.5-5.0); Alkaline Phosphatase 50 U/L (38-126); Blood Urea Nitrogen 19 mg/dl (7-17); Calcium 7.3 mg/dl (8.4-10.2); Carbon Dioxide 24 mmol/L (22-30); Chloride 107 mmol/L (98-107); Estimated Creatinine Clearance 57 ml/min; Glucose 97 mg/dl (70-99); Magnesium 1.8 mg/dl (1.6-2.3); Phosphorus 2.5 mg/dl (2.5-4.5); Potassium 3.1 mmol/L (3.5-5.1); Sodium 135 mmol/L (135-145); Total Bilirubin 0.3 mg/dl (0.2-1.3); Total Protein 3.7 g/dl (6.3-8.2); eGFR > 60.00
--- NOTE | 2024-06-07 06:49 | PTCARENOTE ---
Discussed tinoco with BOXING INSTRUCTOR operations planner. #16Fr placed. *00cc wine colored with clots removed. Tolerated well.
--- NOTE | 2024-06-07 07:40 | W.PN.URO.CBU ---
Today's Communication / Plan
-
Griffith for now
advise switching to CIC at discharge
Assessment / Plan
-
63F on chemotherapy for metastatic breast cancer
R prox ureteral stone diagnosed 04/2024
s/p OR 06/03/24 for ureteroscopy, removal of R distal ureteral stone, R ureteral stent placement
peristent urinary retention
- Negative urine culture indicative of primary infectious issue being non-urologic
Diagnosis
-
Date of Service: June 07, 2024
-
Patient Diagnosis:
Sepsis -- urine cx negative
R ureteral stone
metastatic breast cancer
persistent urinary retention
Post Op s/p R ureteroscopy, stone removal, stent placement 06/03/24
Subjective
-
could not void --> Griffith placed for ~ 800 ml
Objective
-
Vital Signs
Temp Pulse Resp BP Pulse Ox
98.1 F 96 16 114/73 97
06/07/24 04:24 06/07/24 04:24 06/07/24 04:24 06/07/24 04:24 06/07/24 01:02
Intake and Output
06/06/24 06/07/24 06/08/24
06:59 06:59 06:59
Intake Total 1250 / 1250 1796 / 1796
Output Total 2525 / 2525 2100 / 2100
Balance -1275 / -1275 -304 / -304
Intake:
Oral fluids 1000 / 1000 720 / 720
IV fluids (Total) 460 / 460
IV piggybacks 250 / 250 100 / 100
Blood Product Amount Infused ( 516 / 516
mL)
Packed Rbc Leukoreduced Unit 248 / 248
[id number]
Pathogen Redu Plt Leukored 268 / 268
Unit [id number]
Output:
Urine, Griffith 1900 / 1900 800 / 800
Urine, Voided 75 / 75 950 / 950
Straight cath output 550 / 550 350 / 350
Laboratory Results
06/07/24 04:59
06/07/24 04:59
Physical Exam
-
Genitalia - Griffith draining thinly bloody urine
Care Review
Data Reviewed
Discussed with: Nursing and Family
[2024-06-07] MEDS: DUONEB 3 ML INH ×4 (08:11→19:34)
[2024-06-07] MEDS: FOLVITE 1 MG PO (08:52)
[2024-06-07] MEDS: PAXIL 20 MG PO (08:52)
[2024-06-07] MEDS: VITAMIN D3 (cholecalciferol) 25 MCG PO (08:52)
[2024-06-07] MEDS: INDERAL 10 MG PO ×2 (08:53→19:40)
[2024-06-07] MEDS: PROTONIX 40 MG PO (08:53)
[2024-06-07] MEDS: GRANIX 480 MCG SC (08:53)
--- NOTE | 2024-06-07 09:50 | W.PN.ONC2 ---
Today's Communication / Plan
-
continue with current therapies-- no further need for transfusions likely given adequate increments--coags w/o signs of 'sepsis'
Impression
Impression
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
Plan
Plan
CSF
ID input
transfuse leukodepletd pRBCs as clinically indicated
Transfuse leukodepleted platelets for bleeding with plts <50k or <10 if not bleeding
Daily CBC with diff
will followup
Subjective/Objective
Chief Complaint
SOB overnight-- responded to diuretics
Subjective
Vital Signs:
Vital Signs
Temp Pulse Resp BP Pulse Ox
98.0 F 96 18 100/66 99
06/07/24 07:25 06/07/24 09:04 06/07/24 09:04 06/07/24 08:00 06/07/24 09:04
Lab Results:
Laboratory Data
WBC 0.9 10^3/uL (4.8-10.8) L* 06/07/24 04:59
Hgb 8.2 g/dL (12.0-16.0) L D 06/07/24 04:59
Plt Count 37 10^3/uL (130-400) L D 06/07/24 04:59
PT 15.3 Sec (11.4-14.6) H 06/07/24 04:59
INR 1.18 06/07/24 04:59
APTT 34.7 Sec (23.4-35.0) 06/07/24 04:59
eGFR > 60.00 06/07/24 04:59
Physical Exam
HEENT: Moist Mucous Membranes
Cardiology: Normal Sinus Rhythm
Pulmonary: Clear
GI: Soft
Extremities: Pulses Present
Neuro: Non Focal
Review of Systems
Review of Systems
12 point ROS unchanged
Orders
Orders
Orders From Last 24 Hours
06/06/24 18:00
Tbo-Filgrastim [Granix] 480 mcg SC DAILY
06/07/24 04:59
Fibrinogen IN AM
PT/INR [Prothrombin Time] IN AM
PTT IN AM
[2024-06-07 10:08] LABS: % Eosinophils 2.3 % (0-6); % Immature Granulocytes 1.1 % (0-0.5); % Lymphocytes 66.7 % (20.5-51.1); % Monocytes 4.6 % (1.7-9.3); % Neutrophils 25.3 % (42.2-75.2); Absolute Lymphocytes 0.6 10^3/uL (1.2-3.4); Absolute Neutrophils 0.2 10^3/uL (1.4-6.5); Nucleated Red Blood Cells % 0 %
--- NOTE | 2024-06-07 10:15 | W.PN.ID1 ---
Date of Service
Date of Service: June 07, 2024
Today's Communication
Continue IV acyclovir and cefepime for now.
Assessment / Plan
# Neutropenia/profound pancytopenia from chemo
# lung ca with mets to brain and bone currently on chemo at [facility]
- ANC 200
-Neutropenic precaution
-GCSF support as per Hem/Onc
- Await for marrow recovery.
# Severe bilateral bronchitis with cough
- Cough improving
- Continue Cefepime (d5) for now
- Anticipate transition to po abx soon.
# Right obstructive uropathy
- 06/03 s/p lithotripsy, stone extraction, ureter stent placed
Cloudy urine behind stone, urine sent for cx but not done.
The Ucx with 20K mixed dunia was collected from ED. Offending organism may be behind the stone and not in bladder.
- Continue empiric cefepime for now.
-Anticipate transition to po abx soon.
- Urinary retention. Griffith placed 06/06/24.
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
- Continue Acyclovir 5mg/kg IV q8h (d2)
- No progression of lesions. Lesions somewhat improved today.
#Conditions [employer]ING
Non-small cell lung cancer s/p wedge resection MAKENZIE and [facility] 2020, with recent mets to brain and bone (dx 02/2024) s/p brain radiation, started chemo early 05/2024
Port placement
Hypothyroidism
Migraine headache
Dyslipidemia
Insomnia
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
Remote hx stage 0 left breast CA (2009) s/p left breast mastectomy, chemo, in remission
Bilateral breast reconstruction
Chief Complaint
-: Other (Neutropenia)
Subjective / Review of Systems
Lip lesions slightly better.
Dry cough improved.
Vital Signs / Physical Exam
Vital Signs
Vital Signs
Temp Pulse Resp BP Pulse Ox
98.0 F 96 18 100/66 99
06/07/24 07:25 06/07/24 09:04 06/07/24 09:04 06/07/24 08:00 06/07/24 09:04
Physical Exam
Constitutional: No Acute Distress
Eyes: Sclera Anicteric
Oropharyngeal: Other (Extensive dark-hemorrhagic multiple lesions across both lips, some in hard and soft palate; decreasing lesions mid upper lip. )
Cardiovascular: Regular Rate and S1/S2
Pulmonary: Clear
Gastrointestinal: Soft, Non Tender and Non Distended
Genito-Urinary: Griffith and Hematuria; Negative CVA Tenderness
Extremities: Edema
Neurological: AO x 3
Lines: Port
Objective Data
Lab Data
Lab Results
06/07/24 04:59
06/07/24 04:59
PT 15.3 Sec (11.4-14.6) H 06/07/24 04:59
INR 1.18 06/07/24 04:59
APTT 34.7 Sec (23.4-35.0) 06/07/24 04:59
Estimated Creat Clear 57 ml/min 06/07/24 04:59
Total Bilirubin 0.3 mg/dl (0.2-1.3) 06/07/24 04:59
AST 37 U/L (14-36) H 06/07/24 04:59
ALT 25 U/L (0-35) 06/07/24 04:59
Alkaline Phosphatase 50 U/L (38-126) 06/07/24 04:59
Most recent labs reviewed.
Micro Results:
06/03/24 19:24 Blood Culture - Preliminary
Blood/Venous No Growth in 72 hours- Final report to follow
06/03/24 19:24 Blood Culture - Preliminary
Blood/Venous No Growth in 72 hours- Final report to follow
06/05/24 20:20 Nasal Screen MRSA (PCR) - Final
Nose MRSA not detected - performed by PCR methodology.
06/03/24 18:28 Urine Culture - Final
Urine
06/03/24 14:44 Influenza Types A & B ([facility]) - Final
Nasal Swab Negative for Influenza A & B, NAAT
Negative results must be combined with clinical observations
and patient history.
Nucleic Acid Amplification test (NAAT)performed on the
[employer] platform.
06/03/[address]: SEVERE BILATERAL LOWER LOBE BRONCHITIS.
06/03/24 CT a/p: MODERATE to SEVERE ACUTE RIGHT HYDROURETERONEPHROSIS secondary to a 3.9 mm obstructing calculus at the right ureterovesical junction.
2. Moderate distention of the urinary bladder.
3. Moderate distention of the gallbladder.
4. Small hiatal hernia.
5. Chronic colitis in the cecum and ascending colon.
6. 7.9 mm sclerotic lesion in the intertrochanteric left proximal femur suspicious for a small blastic osseous metastasis in the setting of known breast cancer. A benign sclerotic bone island is alternative diagnostic possibility.
[2024-06-07] MEDS: KCL 270 MEQ IV (11:35)
--- NOTE | 2024-06-07 13:17 | CM ---
Patient with Hx breast CA on chemo. O2 2L. Receiving IV acyclovir, IV Abx, Granix SQ, IV Dilaudid prn. Has tinoco cath. PT/OT recommend HH.
Met with patient and son Ulysses; offered VN for SN/PT/OT and patient says she would like that and son agrees. They agreed to a referral to [facility]. Patient feels she has enough help at home from family support.
Plan follow up referral to [facility].
Plan watch for home O2 needs.
Plan home with [facility].
--- NOTE | 2024-06-07 15:14 | W.PN.HOSP.TC ---
Today's Communication/Plan
-
Continue cefepime, acyclovir
Monitor CBC
[place] repletion
Assessment / Plan
Assessment / Plan
Physical Exam
General: Comfortable, Conversant, Fever and Chills
HEENT: NormoCephalic, Anicteric, PERRLA, Cove Conjunctivae, No Ptosis and Neck Nontender; diffuse scabbing around the lips
Respiratory: Wheezes (throughout both lung bo ), Rales and Rhonchi
Cardiac: S1/S2 and Regular Rhythm; No Murmur, Rub, Gallop, Peripheral Edema or Calf Tenderness
Breast: Deferred by me
GI: Soft, Non Distended, Normal Bowel Sounds and
Rectal: Deferred by Provider
Genito-urinary: Tinoco removed
Musculoskeletal: No Clubbing, No Cyanosis and No Edema
Skin: Warm and Dry; No Rash or Jaundice
Neuro: AO x 3 (confused with some history and certain dates), Cranial Nerves Intact and No Sensory Deficits; No Slurred Speech, Facial Droop, Tremors or Sedated
Psych: Calm
#OBSTRUCTING RIGHT URETERAL STONE with SEVERE ACUTE RIGHT HYDROURETERONEPHROSIS
-Ureteral stent to stay in place for approx 2 weeks, outpatient removal
- Tinoco catheter placed for I/O and maximal drainage until stable
-The ureteral stent to stay in place for 2 weeks
-Outpatient removal of stent, follow-up urology outpatient
-A straight cath as needed if inability to void on dc; tinoco in place
#Sepsis 2/2 to Bacterial Bronchitis and most likely Complicated Urine
-Cont cefepime and add back azithromycin
� Negative urine culture although elevated wbc with urine behind stone - still suspect related infection
- f/u cultures, negative
-IVF PRN
�ID consulted
�IVF as needed
-Cefepime
# Severe bilateral Lower LOBE BRONCHITIS
Cont cefepime cefepime
-Duonebs
� ID consulted due to immunocompromise state
#Acute Pancytopenia Likely secondary to Chemotherapy
#Acute anemia, secondary to chemotherapy
� No evidence of active GI bleeding, acute blood loss
-Consulted oncology
-S/P 1 u prbc; received platelets but because dyspneic - received 20mg iv lasix;
� GCSF 06/06/24 as per onc
-Monitor with resuscitation
� Transfuse hemoglobin today
� Maintain hemoglobin greater than 7
� Neutropenic precautions
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
- Continue Acyclovir 5mg/kg IV q8h (d2)
#Hypokalemia
-monitor and replete
�Dietary consult
#YANELY secondary to sepsis
Creat 1.1 > creat 0.7
-ivf prn
-resolved
#Hyponatremia
� Mild
� Continue to monitor
� Suspect hypovolemic related
#Breast cancer with NEW METS to along suture line of the left upper lobe pulmonary wedge 9 mm nodule, 2.9 cm opacity in the right lung
#Breast cancer known with mets left femur on current CHEMO
Per CT
3.9 mm 7.9 mm sclerotic lesion in the intertrochanteric left proximal femur suspicious for a small blastic osseous metastasis in the setting of
known breast cancer. A benign sclerotic bone island is alternative diagnostic
-Consult ONC
Appears to be new mets along suture line of the left upper lobe pulmonary wedge 9 mm nodule, 2.9 cm opacity in the right lung
Last Chemo on 05/28/24 gets 12 hour infusion q3 weeks via port Right upper chest wall
-Oncology
#Tachycardia
-restart BB due to reflex tachycardia
-monitor with sepsis
DVT prophylaxis
SCDs, discontinue HSQ due to thrombocytopenia
Full code
Total time spent on today's encounter was 52 minutes which included time spent in counseling the patient/family regarding diagnosis and treatment plan as listed above, goals of care, and symptom management. Case was discussed with nursing staff,
specialists, and care coordinators/case management. All labs and imaging personally reviewed by me. Remainder the time spent in detailed review of previous records, lab data, imaging, and other medical provider documentation.
Anticipated Discharge: 24 - 48 hours
Subjective/Interval History
-
Date of Service: June 07, 2024
no acute events, feels better
Objective Data
-
Labs:
Laboratory Results
06/07/24
04:59
WBC 0.9 L*
Hgb 8.2 L D
Hct 24.5 L
Plt Count 37 L D
PT 15.3 H
INR 1.18
APTT 34.7
Sodium 135
Potassium 3.1 L
Chloride 107
Carbon Dioxide 24
BUN 19 H
Creatinine 0.8
Glucose 97
Calcium 7.3 L
Total Bilirubin 0.3
AST 37 H
ALT 25
Alkaline Phosphatase 50
Vital Signs:
Vital Signs
Temp Pulse Resp BP Pulse Ox
98.3 F 113 18 100/66 98
06/07/24 11:40 06/07/24 11:56 06/07/24 11:56 06/07/24 08:00 06/07/24 11:56
I&O
06/06/24 06/07/24 06/08/24
06:59 06:59 06:59
Intake Total 1250 / 1250 1796 / 1796
Output Total 2525 / 2525 2100 / 2100
Balance -1275 / -1275 -304 / -304
Review of Systems
-
History Source: Patient
All other systems: Not reviewed unless documented
Data Reviewed
-
CT Scan: Report Reviewed by me
Labs: Labs Reviewed by me
--- NOTE | 2024-06-07 16:14 | PTCARENOTE ---
patient assisted out of bed to chair. heart rate tachycardic to 126-130 bpm, settling to 1 teens after less than a minute of sitting in the chair. pox remains 96-98% on 2 L nasal canula. continuing to monitor
[2024-06-07] MEDS: LIPITOR 10 MG PO (16:53)
--- NOTE | 2024-06-07 18:13 | PTCARENOTE ---
patient calling to report shortness of breath. pox remains 97% on 2L. Resp 22. 'I feel like I can't get a deep breath in'. Inspiratory and expiratory wheezing auscultated throughout. pt with increased moist non-productive cough. Pt received
scheduled nebulizer at 1600. Resp thearapist at bedside. Assisted pt with acapella and performed chest PT. Lungs with fewer wheezes after coughing. She is feeling better. continuing to monitor.
--- NOTE | 2024-06-07 20:00 | PTCARENOTE ---
Assumed care of pt from dayshift. HR tachycardic in 110s. bp 93/75. pulse ox 100% on 3L breathing nonlabored. Pt feels throat 'swollen' no pain, able to swallow medications, but didn't want to finish dinner. Pt offers no other complaints, wishes to
rest. staying at bedside. Call harris within reach.
[2024-06-07] MEDS: TOPAMAX 25 MG PO (21:54)
[2024-06-08] VITALS (24 sets, daily range): BP systolic 98–153; BP diastolic 62–115; PULSE 107; O2SAT 95; BMI 23.1
[2024-06-08] MEDS: ZOVIRAX INJECTION 56 MG IV ×2 (02:23→23:29)
[2024-06-08] MEDS: STERILE WATER FOR INJECTION 10 ML IV ×2 (03:31→21:42)
[2024-06-08] MEDS: MAXIPIME 2000 MG IV ×2 (03:31→21:42)
--- NOTE | 2024-06-08 04:47 | VATNOTE ---
CALLED TO ASSESS LACK OF BR FROM L SUBQ PRT AGAIN. NO BR OBTAINED DESPITE MULTIPLE ATTEMPTS AND MANUEVERS. PT HAS HAD PRT CATHFLO'D X4 IN THE LAST 3 DAYS. IN CONSIDERATION OF THIS FACT, RECOMMENDED TO PCN THAT SITUATION BE REPORTED TO THE PROVIDER
IN THE AM AND SUGGESTION MADE TO HAVE A DYE STUDY DONE IN IR TO DETERMINE ROOT CAUSE OF THIS SITUATION. PCN TO OBTAIN LABS THIS AM PERIPHERALLY. PT AND AT BEDSIDE WITH GOOD UNDERSTANDING OF SITUATION AND PLAN OF CARE AT THIS TIME.
[2024-06-08 05:07] LABS: ALT (SGPT) 37 U/L (0-35); AST (SGOT) 46 U/L (14-36); Albumin 1.8 g/dl (3.5-5.0); Alkaline Phosphatase 56 U/L (38-126); Blood Urea Nitrogen 19 mg/dl (7-17); Calcium 7.4 mg/dl (8.4-10.2); Carbon Dioxide 23 mmol/L (22-30); Chloride 108 mmol/L (98-107); Estimated Creatinine Clearance 65 ml/min; Glucose 123 mg/dl (70-99); Magnesium 1.8 mg/dl (1.6-2.3); Potassium 3.8 mmol/L (3.5-5.1); Sodium 135 mmol/L (135-145); Total Bilirubin 0.3 mg/dl (0.2-1.3); Total Protein 3.8 g/dl (6.3-8.2); eGFR > 60.00
[2024-06-08 05:22] LABS: Hematocrit 23.4 % (37.0-47.0); Hemoglobin 8.1 g/dL (12.0-16.0); Mean Corp Hgb Conc. 34.6 g/dL (33.0-37.0); Mean Corpuscular Hgb 33.3 pg (27.0-31.0); Mean Corpuscular Volume 96.3 fL (81.0-99.0); Mean Platelet Volume 13.2 fL (7.4-10.4); Platelet Count 21 10^3/uL (130-400); Red Blood Cell Count 2.43 10^6/uL (4.20-5.40); White Blood Cell Count 0.8 10^3/uL (4.8-10.8)
--- NOTE | 2024-06-08 06:11 | PTCARENOTE ---
Platelets= 21. House [facility]LINDER [facility] made aware, 1 unit of platelets ordered.
[2024-06-08] MEDS: DUONEB 3 ML INH (06:18)
--- NOTE | 2024-06-08 06:31 | W.PN.UPDATE ---
Update Note
Progress Note Update
Patient tinoco putting out wine colored urine and her platelets came back this am at 21. Oncology recommends platelet transfusion if platelets are <50 with bleeding. She underwent a ureteroscopy with stone and stent placement on 06/03/24 and
continues with hematuria. 1 pack of leuko reduced platelets ordered. If she becomes SOB she will likely need diuresis.
[2024-06-08] MEDS: INDERAL 10 MG PO (08:53)
[2024-06-08] MEDS: FOLVITE 1 MG PO (08:53)
[2024-06-08] MEDS: PAXIL 20 MG PO (08:53)
[2024-06-08] MEDS: VITAMIN D3 (cholecalciferol) 25 MCG PO (08:53)
[2024-06-08] MEDS: PROTONIX 40 MG PO (08:54)
[2024-06-08] MEDS: GRANIX 480 MCG SC (08:54)
--- NOTE | 2024-06-08 09:31 | W.PN.HOSP.TC ---
Addendum entered and electronically signed by Jose Ackerman MD 06/08/24 09:52:
Discussed with the radiologist Dr. Hackett who reviewed the CT PE study done 5 days ago-the internal jugular veins appears normal in size without evidence of abnormal distention to suggest central venous obstruction. There is no CT evidence of
mediastinal mass or collateral varices in the mediastinum. Hold on the repeat CT imaging unless until she has progressive swelling in which case we will do a contrast enhanced chest CT again.
Original Note:
Today's Communication/Plan
-
Continue cefepime and acyclovir
DC scheduled DuoNebs
Increase propranolol dose
Follow CBC
Assessment / Plan
Assessment / Plan
#OBSTRUCTING RIGHT URETERAL STONE with SEVERE ACUTE RIGHT HYDROURETERONEPHROSIS
-Ureteral stent to stay in place for approx 2 weeks, outpatient removal
- Tinoco catheter placed for I/O and maximal drainage until stable
-The ureteral stent to stay in place for 2 weeks
-Outpatient removal of stent, follow-up urology outpatient
-A straight cath as needed if inability to void on dc; tinoco in place
-In setting of thrombocytopenia hematuria noted today. 1 unit of platelets ordered.
#Sepsis 2/2 to Bacterial Bronchitis and initially suspected source but urine culture is negative
-Cont cefepime per ID
� Negative urine culture although elevated wbc with urine behind stone -cannot rule out related infection
- f/u cultures, negative
-IVF PRN
�ID following
# Severe bilateral Lower LOBE BRONCHITIS
Cont cefepime
-Duonebs as needed. Currently not bronchospastic
#Acute Pancytopenia Likely secondary to Chemotherapy
#Acute anemia, secondary to chemotherapy
� No evidence of active GI bleeding, acute blood loss
-Consulted oncology
-S/P 1 u prbc; received platelets but because dyspneic - received 20mg iv lasix;
� GCSF 06/06/24 as per onc
-Monitor with resuscitation
� Maintain hemoglobin greater than 8, platelets more than 20
� Neutropenic precautions
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
- Continue Acyclovir 5mg/kg IV q8h (d2)
#YANELY secondary to sepsis
Creat 1.1 > creat 0.7
-ivf prn
-resolved
# Sinus tachycardia-suspect multifactorial-discontinue scheduled nebulizers send use as needed. Increased dose of propranolol for now.
#Breast cancer with NEW METS to along suture line of the left upper lobe pulmonary wedge 9 mm nodule, 2.9 cm opacity in the right lung
#Breast cancer known with mets left femur on current CHEMO
Per CT
3.9 mm 7.9 mm sclerotic lesion in the intertrochanteric left proximal femur suspicious for a small blastic osseous metastasis in the setting of
known breast cancer. A benign sclerotic bone island is alternative diagnostic
-Consult ONC
Appears to be new mets along suture line of the left upper lobe pulmonary wedge 9 mm nodule, 2.9 cm opacity in the right lung
Last Chemo on 05/28/24 gets 12 hour infusion q3 weeks via port Right upper chest wall
-Oncology
# Facial puffiness-noted by family. Also slightly puffy neck and clavicle area. This seems to be some issue with the blood return from the left port site. Will check with radiology about the contrast by CT chest need a diagnosis of central venous
obstruction. She had a CT chest PE studies 5 days ago which did not comment anything about venous obstruction.
DVT prophylaxis
SCDs, discontinue HSQ due to thrombocytopenia
Full code
Discussed with and son at bedside today and went over the clinicals, treatment plan.
Total time spent on today's encounter was 52 minutes which included time spent in counseling the patient/family regarding diagnosis and treatment plan as listed above, goals of care, and symptom management. Case was discussed with nursing staff,
specialists, and care coordinators/case management. All labs and imaging personally reviewed by me. Remainder the time spent in detailed review of previous records, lab data, imaging, and other medical provider documentation.
Anticipated Discharge: > 48 hours
Subjective/Interval History
-
Date of Service: June 08, 2024
No nausea vomiting. No abdominal pain. Poor appetite.
She feels she has some scratchy throat. She has significant mucocutaneous HSV lesions.
Coughing is improved. Breathing is improved. She had some shortness of breath episode yesterday but overall her breathing is improved according to at bedside.
Oxygenating well on room air.
Denies any chest pains.
No diarrhea.
Objective Data
-
Labs:
Laboratory Results
06/08/24
04:19
WBC 0.8 L*
Hgb 8.1 L
Hct 23.4 L
Plt Count 21 L* D
Sodium 135
Potassium 3.8
Chloride 108 H
Carbon Dioxide 23
BUN 19 H
Creatinine 0.7
Glucose 123 H
Calcium 7.4 L
Total Bilirubin 0.3
AST 46 H
ALT 37 H
Alkaline Phosphatase 56
Vital Signs:
Vital Signs
Temp Pulse Resp BP Pulse Ox
98.1 F 106 16 113/70 100
06/08/24 06:47 06/08/24 06:21 06/08/24 06:21 06/08/24 06:00 06/08/24 06:21
I&O
06/07/24 06/08/24 06/09/24
06:59 06:59 06:59
Intake Total 1796 / 1796 1320 / 1320
Output Total 2099 875 / 875
Balance -304 / -304 445 / 445
Review of Systems
-
Constitutional: Denies Fever or Chills
Respiratory: Reports Cough (Improved)
Neuro: Denies Dizzy
Physical Exam
-
General: No Apparent Distress
HEENT: Moist Mucous Membranes and Other (Mucocutaneous HSV lesions on both upper and lower lip noted)
Respiratory: Non Labored Respirations; Negative Wheezes or Accessory Resp Muscle Use
Cardiac: Regular Rhythm, S1/S2 and Tachycardic
GI: Soft, Nontender, Nondistended and Normal Bowel Sounds
Genito-urinary: Bloody Urine (In the Tinoco bag) and Tinoco
Neuro: AO x 3
Psych: Calm
Data Reviewed
-
Labs: Labs Reviewed by me
[2024-06-08 09:34] LABS: % Basophils 1.2 % (0-2); % Eosinophils 4.9 % (0-6); % Immature Granulocytes 1.2 % (0-0.5); % Lymphocytes 65.4 % (20.5-51.1); % Monocytes 11.1 % (1.7-9.3); % Neutrophils 16.2 % (42.2-75.2); Absolute Lymphocytes 0.5 10^3/uL (1.2-3.4); Absolute Monocytes 0.1 10^3/uL (0.1-0.6); Nucleated Red Blood Cells % 0 %
[2024-06-08 09:44] LABS: Absolute Neutrophils 0.1 10^3/uL (1.4-6.5)
--- NOTE | 2024-06-08 10:27 | W.PN.ID1 ---
Date of Service
Date of Service: June 08, 2024
Today's Communication
Transition to po abx's. See below.
Assessment / Plan
# Neutropenia/profound pancytopenia from chemo
# lung ca with mets to brain and bone currently on chemo at [facility]
- ANC 100
-Neutropenic precaution
-GCSF support as per Hem/Onc
- Await for marrow recovery.
# Severe bilateral bronchitis with cough
- Cough improving
-Transition Cefepime (d5) to levofloxacin po 750mg po qd.
# Right obstructive uropathy
- 06/03 s/p lithotripsy, stone extraction, ureter stent placed
Cloudy urine behind stone, urine sent for cx but not done.
The Ucx with 20K mixed dunia was collected from ED. Offending organism may be behind the stone and not in bladder.
- Urinary retention. Griffith placed 06/06/24.
- Transition cefepime (d5) to levofloxacin po 750mg po qd x 5 more days.
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
- No progression of lesions. Lesions drier tender naphthalene and crusting.
- Transition Acyclovir 5mg/kg IV q8h (d4) to valacyclovir 1g po tid through 06/11/24.
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
Non-small cell lung cancer s/p wedge resection MAKENZIE and LLL 2020, with recent mets to brain and bone (dx 02/2024) s/p brain radiation, started chemo early 05/2024
Port placement
Hypothyroidism
Migraine headache
Dyslipidemia
Insomnia
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
Remote hx stage 0 left breast CA (2009) s/p left breast mastectomy, chemo, in remission
Bilateral breast reconstruction
Chief Complaint
-: Other (Neutropenia)
Subjective / Review of Systems
no new complaints
Vital Signs / Physical Exam
Vital Signs
Vital Signs
Temp Pulse Resp BP Pulse Ox
98.1 F 106 16 113/70 100
06/08/24 06:47 06/08/24 06:21 06/08/24 06:21 06/08/24 06:00 06/08/24 06:21
Physical Exam
Constitutional: Comfortable
Eyes: Sclera Anicteric
Oropharyngeal: Other (Extensive dark-hemorrhagic multiple lesions across both lips, some in hard and soft palate; decreasing lesions mid upper lip. )
Cardiovascular: Regular Rate and S1/S2
Pulmonary: Clear
Gastrointestinal: Soft, Non Tender and Non Distended
Genito-Urinary: Griffith and Hematuria; Negative CVA Tenderness
Extremities: Edema
Neurological: AO x 3
Lines: Port
Objective Data
Lab Data
Lab Results
06/08/24 04:19
06/08/24 04:19
PT 15.3 Sec (11.4-14.6) H 06/07/24 04:59
INR 1.18 06/07/24 04:59
APTT 34.7 Sec (23.4-35.0) 06/07/24 04:59
Estimated Creat Clear 65 ml/min 06/08/24 04:19
Total Bilirubin 0.3 mg/dl (0.2-1.3) 06/08/24 04:19
AST 46 U/L (14-36) H 06/08/24 04:19
ALT 37 U/L (0-35) H 06/08/24 04:19
Alkaline Phosphatase 56 U/L (38-126) 06/08/24 04:19
Most recent labs reviewed.
Micro Results:
06/03/24 19:24 Blood Culture - Preliminary
Blood/Venous No Growth in 4 days- Final report to follow
06/03/24 19:24 Blood Culture - Preliminary
Blood/Venous No Growth in 4 days- Final report to follow
06/05/24 20:20 Nasal Screen MRSA (PCR) - Final
Nose MRSA not detected - performed by PCR methodology.
06/03/24 18:28 Urine Culture - Final
Urine
06/03/24 14:44 Influenza Types A & B ([facility]) - Final
Nasal Swab Negative for Influenza A & B, NAAT
Negative results must be combined with clinical observations
and patient history.
Nucleic Acid Amplification test (NAAT)performed on the
[employer] platform.
06/03/[address]: SEVERE BILATERAL LOWER LOBE BRONCHITIS.
06/03/24 CT a/p: MODERATE to SEVERE ACUTE RIGHT HYDROURETERONEPHROSIS secondary to a 3.9 mm obstructing calculus at the right ureterovesical junction.
2. Moderate distention of the urinary bladder.
3. Moderate distention of the gallbladder.
4. Small hiatal hernia.
5. Chronic colitis in the cecum and ascending colon.
6. 7.9 mm sclerotic lesion in the intertrochanteric left proximal femur suspicious for a small blastic osseous metastasis in the setting of known breast cancer. A benign sclerotic bone island is alternative diagnostic possibility.
--- NOTE | 2024-06-08 10:50 | W.PN.ONC2 ---
Today's Communication / Plan
-
Continue G-CSF.
Monitor platelets and hemoglobin with transfusions as needed, see parameters in note.
Metastases are from lung cancer, not breast cancer.
Following along with you.
Impression
Impression
Non-small cell lung cancer, EGFR 19 mutated, status post carboplatin/pemetrexed/Rybrevant on 05/28, metastatic to bone
Remote history of breast cancer, quiescent
Severe pancytopenia from myelosuppressive chemotherapy
Right ureteral obstruction status post stent placement 06/03/2024, urine culture normal
Persistent urinary retention requiring Griffith
Hematuria
Status post sepsis attributed to severe bronchitis
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
Plan
Plan
Continue Granix given the profound neutropenia and severe mucocutaneous disease of the lips
In Griffith bag, urine is dark red but it is unclear to me when the bag was last changed and whether the hematuria is ongoing. If so, would transfuse a unit of platelets today.
Maintain hemoglobin greater than 7.5, transfuse leukodepletd pRBCs as clinically indicated
Transfuse leukodepleted platelets for bleeding with plts <50k or <10 if not bleeding
Daily CBC with diff
Monitor pain, currently well-controlled
Subjective/Objective
Chief Complaint
Heme/Onc follow up of met lung cancer with chemo-induced pancytopenia
Subjective
Patient was able to clarify today that her breast cancer history is remote, and any metastatic disease is due to her lung cancer. She still has very severe mucocutaneous disease of lips. She states that the pain is currently well-controlled. She
thinks she has ongoing hematuria although though she thinks this may be getting better as well. Urine in Griffith bag is dark red. Denies fevers or chills currently. Continues on G-CSF 480 mcg which was started on Jun 06, dose given today.
Vital Signs:
Vital Signs
Temp Pulse Resp BP Pulse Ox
98.1 F 106 16 113/70 100
06/08/24 06:47 06/08/24 06:21 06/08/24 06:21 06/08/24 06:00 06/08/24 06:21
Lab Results:
Laboratory Data
WBC 0.8 10^3/uL (4.8-10.8) L* 06/08/24 04:19
Hgb 8.1 g/dL (12.0-16.0) L 06/08/24 04:19
Plt Count 21 10^3/uL (130-400) L* D 06/08/24 04:19
PT 15.3 Sec (11.4-14.6) H 06/07/24 04:59
INR 1.18 06/07/24 04:59
APTT 34.7 Sec (23.4-35.0) 06/07/24 04:59
eGFR > 60.00 06/08/24 04:19
Physical Exam
Awake, alert, uncomfortable appearing
Severe mucocutaneous disease
Griffith draining dark red urine
Heart regular
Lungs clear
Extremities no edema
Neurologic exam grossly nonfocal
Review of Systems
Review of Systems
Constitutional: Reports Fatigue
Head: Reports Sore Throat
Respiratory: Denies Dyspnea
Cardiovascular: Denies Chest Pain
Gastrointestinal: Denies Nausea/Vomiting
Genitourinary: Reports Hematuria
Skin: Denies Rash or Pruritis
Neurological: Denies Headache
Psychiatric: Denies Depression
Hem/Lymphatic: Reports Easy Bruising
[2024-06-08] MEDS: ZOVIRAX INJECTION IV (10:54)
[2024-06-08] MEDS: VALTREX PO (15:53)
[2024-06-08] MEDS: VALTREX 1000 MG PO (15:54)
[2024-06-08] MEDS: STERILE WATER FOR INJECTION IV (15:54)
[2024-06-08] MEDS: LIPITOR 10 MG PO (18:36)
--- NOTE | 2024-06-08 19:47 | PTCARENOTE ---
dayshift note. see nursing worklist.pt recieved one unit of platelets this afternoon without incident. port check done in irad and port ok to use but still no blood return. pts appetite is very poor. pt unable to swallow oral acyclovir and levaquin.
pt choked on and gagged up levaquin pill. hospitalist made aware and orders change back to iv.pt worked with PT and did exercises in bed but did not feel up to getting oob. family member with pt throughout the day. neutropenic precautions maintained.
[2024-06-08] MEDS: TOPAMAX 25 MG PO (21:41)
[2024-06-08] MEDS: INDERAL 20 MG PO (21:41)
[2024-06-08] MEDS: OCEAN, SALINE MIST 2 SPRAYS NASAL (21:53)
[2024-06-08] MEDS: XOPENEX 0.63 MG INHALANT SOLUTION INH (23:01)
[2024-06-09] VITALS (12 sets, daily range): BP systolic 81–120; BP diastolic 51–75; BMI 23.0
--- NOTE | 2024-06-09 03:17 | PTCARENOTE ---
Addendum entered by Melisa Bar RN 06/09/24 07:23:
labs resulting at change of shift Day RN agreed to inform
Addendum entered by Melisa Bar RN 06/09/24 06:08:
Pt SPO2 dropping to 87-88% 2L. Pt NC to 6L SPO2 90%, RT to bed side for breathing treatment and placed humidification, RT hearing wheeze in upper air way. [facility] TURRET LATHE OPERATOR made aware of changes, CXR ordered. Reassessment Pt is 93% 6L.
Original Note:
Pt having expiatory wheeze, Pt having complaint of feeling 'tight'. Neb changed to Xopenex and administered by RT. Pt appeared to be resting comfortably through out the night, respirations even and unlabored. Pt remains on 2L NC at HS SPO2 95%.
Assessment care and vitals as charted.
[2024-06-09] MEDS: ROBITUSSIN DM 5 ML PO (05:16)
[2024-06-09] MEDS: STERILE WATER FOR INJECTION 10 ML IV ×3 (05:17→20:46)
[2024-06-09] MEDS: MAXIPIME 2000 MG IV ×3 (05:17→20:46)
[2024-06-09] MEDS: OCEAN, SALINE MIST 2 SPRAYS NASAL ×2 (05:20→08:31)
[2024-06-09] MEDS: XOPENEX 0.63 MG INHALANT SOLUTION INH ×3 (05:22→19:35)
[2024-06-09 06:39] LABS: ALT (SGPT) 38 U/L (0-35); AST (SGOT) 41 U/L (14-36); Albumin 1.9 g/dl (3.5-5.0); Alkaline Phosphatase 59 U/L (38-126); Blood Urea Nitrogen 10 mg/dl (7-17); Calcium 7.6 mg/dl (8.4-10.2); Carbon Dioxide 24 mmol/L (22-30); Chloride 105 mmol/L (98-107); Estimated Creatinine Clearance 76 ml/min; Glucose 94 mg/dl (70-99); Potassium 2.8 mmol/L (3.5-5.1); Sodium 134 mmol/L (135-145); Total Bilirubin 0.3 mg/dl (0.2-1.3); Total Protein 4.2 g/dl (6.3-8.2); eGFR > 60.00
[2024-06-09 06:40] LABS: Hematocrit 25.2 % (37.0-47.0); Hemoglobin 8.7 g/dL (12.0-16.0); Mean Corp Hgb Conc. 34.5 g/dL (33.0-37.0); Mean Corpuscular Volume 95.5 fL (81.0-99.0); Mean Platelet Volume 13.2 fL (7.4-10.4); Platelet Count 25 10^3/uL (130-400); Red Blood Cell Count 2.64 10^6/uL (4.20-5.40); Red Cell Dist. Width 15.3 % (11.5-14.5); White Blood Cell Count 2.3 10^3/uL (4.8-10.8)
[2024-06-09 08:05] LABS: Band Neutrophils 14 % (0-3); Eosinophils 3 % (0-6); Lymphocytes 28 % (20-51); Metamyelocytes 4 % (-); Monocytes 25 % (2-9); Myelocytes 1 % (-); Segmented Neutrophils 22 % (42-75)
[2024-06-09 08:06] LABS: Anisocytosis 1+; Atypical Lymphocytes 3 %; Hypochromasia 1+; Normal RBC Morphology No; Platelets Checked Yes
[2024-06-09 08:08] LABS: Absolute Neutrophils -Man Diff 0.8 10^3/uL (1.4-6.5); Total Cells Counted 100
--- NOTE | 2024-06-09 08:24 | W.PN.ONC2 ---
Today's Communication / Plan
-
Continue G-CSF.
Daily CBC, transfuse prn
symptom management
PT/OT/speech/swallow
and son at bedside during visit
Impression
Impression
Non-small cell lung cancer, EGFR 19 mutated, status post carboplatin/pemetrexed/Rybrevant on 05/28, metastatic to bone - Metastases are from lung cancer, not breast cancer.
Remote history of breast cancer, quiescent
Severe pancytopenia from myelosuppressive chemotherapy. Anc 800, platelets 25,000
Right ureteral obstruction status post stent placement 06/03/2024, urine culture normal
Persistent urinary retention requiring Tin[place]
Hematuria
Status post sepsis attributed to severe bronchitis
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
Plan
Plan
Continue Granix given the profound neutropenia and severe mucocutaneous disease of the lips
Maintain hemoglobin greater than 7.5, transfuse leukodepletd pRBCs as clinically indicated
Transfuse leukodepleted platelets for bleeding with plts <50k or <10 if not bleeding
Daily CBC with diff
Subjective/Objective
Subjective
left flank pain
hematuria in tinoco
denies overt bleeding
Vital Signs:
Vital Signs
Temp Pulse Resp BP Pulse Ox
97.7 F 102 23 119/72 90
06/09/24 07:06 06/09/24 05:28 06/09/24 05:28 06/09/24 04:00 06/09/24 05:33
Lab Results:
Laboratory Data
WBC 2.3 10^3/uL (4.8-10.8) L* 06/09/24 05:50
Hgb 8.7 g/dL (12.0-16.0) L 06/09/24 05:50
Plt Count 25 10^3/uL (130-400) L* 06/09/24 05:50
PT 15.3 Sec (11.4-14.6) H 06/07/24 04:59
INR 1.18 06/07/24 04:59
APTT 34.7 Sec (23.4-35.0) 06/07/24 04:59
eGFR > 60.00 06/09/24 05:50
Physical Exam
mediport w/o erythema
HEENT: Other (Dark crusted/scabbed lesions across both lips, some in hard and soft palate); No Jaundice
Cardiology: Normal Sinus Rhythm
Pulmonary: Clear
GI: Soft
Extremities: Pulses Present; No Edema
Neuro: Non Focal
--- NOTE | 2024-06-09 08:29 | W.PN.HOSP.TC ---
Addendum entered and electronically signed by Jose Ackerman MD 06/09/24 08:38:
Hypokalemia-replete
Original Note:
Today's Communication/Plan
-
Continue with antiviral and antibiotics
Add Mucomyst inhalations, Tessalon Perles. Continue with Xopenex nebs.
Speech therapy to see today.
Continue with PT OT
Assessment / Plan
Assessment / Plan
#OBSTRUCTING RIGHT URETERAL STONE with SEVERE ACUTE RIGHT HYDROURETERONEPHROSIS
-Ureteral stent to stay in place for approx 2 weeks, outpatient removal
-Griffith catheter in place
-Outpatient removal of stent, follow-up urology outpatient
-Improved hematuria. Status post platelet transfusion 06/08 for hematuria and thrombocytopenia
#Sepsis 2/2 to Bacterial Bronchitis and initially suspected source but urine culture is negative
- Cont cefepime per ID; patient unable to swallow Levaquin pills.
� Negative urine culture although elevated wbc with urine behind stone -cannot rule out related infection
- f/u cultures- negative
-IVF PRN
�ID following
# Severe bilateral Lower LOBE BRONCHITIS
- Cont cefepime
- Duonebs as needed.
-Add Mucomyst inhalation. Add Tessalon Perles.
#Acute Pancytopenia Likely secondary to Chemotherapy
#Acute anemia, secondary to chemotherapy
� No evidence of active GI bleeding, acute blood loss
-Oncology following
-S/P 1 u prbc and 2 units of platelets so far on this admission
� GCSF 06/06/24 as per onc-improving white count noted
-Monitor with resuscitation
� Maintain hemoglobin greater than 8, platelets more than 20
� Neutropenic precautions
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
- Continue Acyclovir 5mg/kg IV q8h (d2)
#YANELY secondary to sepsis
Creat 1.1 > creat 0.7
-ivf prn
-resolved
# Sinus tachycardia-suspect multifactorial-discontinue scheduled nebulizers send use as needed. Increased dose of propranolol for now.
# History of breast cancer which is quiescent according to oncology. The new mets are from lung cancer
# Facial puffiness-noted by family. Also slightly puffy neck and clavicle area. This seems to be some issue with the blood return from the left port site. Port study yesterday shows left IJ port in satisfactory position, contrast passes to the
right atrium as expected. The contrast injection showed finding consistent with early fibrin sheath/catheter related sheath formation at the distal end of the catheter. If the facial swelling gets worse or if the port is needed for frequent blood
draws, port revision of port stripping would be recommended. To be followed at [facility].
DVT prophylaxis
SCDs, discontinue HSQ due to thrombocytopenia
Full code
Discussed with at bedside today and went over the clinicals, treatment plan for today.
Discussed with the RN
Total time spent on today's encounter was 52 minutes which included time spent in counseling the patient/family regarding diagnosis and treatment plan as listed above, goals of care, and symptom management. Case was discussed with nursing staff,
specialists, and care coordinators/case management. All labs and imaging personally reviewed by me. Remainder the time spent in detailed review of previous records, lab data, imaging, and other medical provider documentation.
Anticipated Discharge: 24 - 48 hours
Subjective/Interval History
-
Date of Service: June 09, 2024
Last night patient was having more cough and was feeling congested requiring neb treatments.
Today this morning she still feels congested and has cough. She also is losing her voice.
[place] short of breath with the coughing.
She is on oxygen this morning-6 L by nasal cannula -saturation is 96%.
Denies chest pain.
Mouth is still sore.
Able to tolerate some diet and some pills but not the bigger ones. Having difficulty swallowing them.
Objective Data
-
Labs:
Laboratory Results
06/09/24
05:50
WBC 2.3 L*
Hgb 8.7 L
Hct 25.2 L
Plt Count 25 L*
Sodium 134 L
Potassium 2.8 L D
Chloride 105
Carbon Dioxide 24
BUN 10
Creatinine 0.5 L
Glucose 94
Calcium 7.6 L
Total Bilirubin 0.3
AST 41 H
ALT 38 H
Alkaline Phosphatase 59
Vital Signs:
Vital Signs
Temp Pulse Resp BP Pulse Ox
97.7 F 102 23 119/72 90
06/09/24 07:06 06/09/24 05:28 06/09/24 05:28 06/09/24 04:00 06/09/24 05:33
I&O
06/08/24 06/09/24 06/10/24
06:59 06:59 06:59
Intake Total 1320 / 1320 629 / 629
Output Total 875 / 875 2900 / 2900
Balance 445 / 445 -2271 / -2271
Review of Systems
-
Constitutional: Reports Fatigue; Denies Fever or Chills
Abdomen/GI: Denies Abdominal Pain
Neuro: Denies Dizzy
Physical Exam
-
General: No Apparent Distress
HEENT: Moist Mucous Membranes and Other (Crusted perioral herpes lesions)
Respiratory: Rhonchi (Few bilateral rhonchi in the lower zones) and Non Labored Respirations; Negative Wheezes (Today) or Accessory Resp Muscle Use
Cardiac: Regular Rhythm, S1/S2 and Tachycardic
GI: Soft
Neuro: AO x 3
Psych: Calm
Data Reviewed
-
Labs: Labs Reviewed by me
[2024-06-09] MEDS: GRANIX 480 MCG SC (08:30)
[2024-06-09] MEDS: INDERAL 20 MG PO ×2 (08:31→20:45)
[2024-06-09] MEDS: PAXIL 20 MG PO (08:31)
[2024-06-09] MEDS: PROTONIX 40 MG PO (08:31)
[2024-06-09] MEDS: VITAMIN D3 (cholecalciferol) 25 MCG PO (08:31)
[2024-06-09] MEDS: FOLVITE 1 MG PO (08:31)
[2024-06-09] MEDS: ZOVIRAX INJECTION 56 MG IV ×3 (08:33→23:28)
[2024-06-09] MEDS: KCL 270 MEQ IV ×2 (08:33→13:10)
--- NOTE | 2024-06-09 10:21 | CM ---
Addendum entered by Charu Hassan RN 06/09/24 10:46:
Received phone call from SARAVANAN Abernathy (ph [phone]); she is available to assist with d/c planning needs for this patient.
Original Note:
Patient with Hx breast CA with Port on chemo who is s/p cysto with stent placement, s/p PRBCs and platelets in neutropenic precautions. O2 increased to 6L last night for cough/congestion/desatting/wheezing. Receiving Mucomyst Inh, IV acyclovir, IV
Abx, Granix SQ. PT 06/08; declined to get OOB due to fatigue. Prior PT/OT recommend HH.
Plan watch for home O2 needs.
Plan home with Suad GAN.
--- NOTE | 2024-06-09 10:23 | W.PN.ID1 ---
Date of Service
Date of Service: June 09, 2024
Today's Communication
Continue cefepime and acyclovir for now.
Assessment / Plan
# Neutropenia - improving
# profound pancytopenia from chemo
# lung ca with mets to brain and bone currently on chemo at [facility]
- ANC 800
-Neutropenic precaution
-GCSF support as per Hem/Onc
# Severe bilateral bronchitis with cough
- Continue cefepime (d6) for now.
- When dysphagia with pills resolve, transition to levofloxacin po 750mg po qd through 06/13/24
# Right obstructive uropathy
- 06/03 s/p lithotripsy, stone extraction, ureter stent placed
Cloudy urine behind stone, urine sent for cx but not done.
The Ucx with 20K mixed dunia was collected from ED. Offending organism may be behind the stone and not in bladder.
- Urinary retention. Griffith placed 06/06/24.
- Continue cefepime (d6) for now.
- When dysphagia with pills resolve, transition to levofloxacin po 750mg po qd through 06/13/24
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
- No progression of lesions. 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
- Continue Acyclovir 5mg/kg IV q8h (d5) for now.
- When dysphagia with large pills resolve, transiiotn to valacyclovir 1g po tid through 06/11/24.
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
Non-small cell lung cancer s/p wedge resection MAKENZIE and LLL 2020, with recent mets to brain and bone (dx 02/2024) s/p brain radiation, started chemo early 05/2024
Port placement
Hypothyroidism
Migraine headache
Dyslipidemia
Insomnia
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
Remote hx stage 0 left breast CA (2009) s/p left breast mastectomy, chemo, in remission
Bilateral breast reconstruction
Chief Complaint
-: Other (Neutropenia)
Subjective / Review of Systems
at bedside.
She has difficulty swallowing large pills. Liquid is fine. No pain with swallowing.
Vital Signs / Physical Exam
Vital Signs
Vital Signs
Temp Pulse Resp BP Pulse Ox
97.7 F 102 23 119/72 90
06/09/24 07:06 06/09/24 05:28 06/09/24 05:28 06/09/24 04:00 06/09/24 05:33
Physical Exam
Constitutional: No Acute Distress
Eyes: Sclera Anicteric
Oropharyngeal: Other (Dark lesions across both lips, some in hard and soft palate; no new lesions. Lesions are drying up. ); Negative Erythema
Cardiovascular: Regular Rate and S1/S2
Pulmonary: Clear
Gastrointestinal: Soft, Non Tender and Non Distended
Genito-Urinary: Griffith; Negative CVA Tenderness
Extremities: Edema
Neurological: AO x 3
Lines: Port
Objective Data
Lab Data
Lab Results
06/09/24 05:50
06/09/24 05:50
PT 15.3 Sec (11.4-14.6) H 06/07/24 04:59
INR 1.18 06/07/24 04:59
APTT 34.7 Sec (23.4-35.0) 06/07/24 04:59
Estimated Creat Clear 76 ml/min 06/09/24 05:50
Total Bilirubin 0.3 mg/dl (0.2-1.3) 06/09/24 05:50
AST 41 U/L (14-36) H 06/09/24 05:50
ALT 38 U/L (0-35) H 06/09/24 05:50
Alkaline Phosphatase 59 U/L (38-126) 06/09/24 05:50
Most recent labs reviewed.
Micro Results:
06/03/24 19:24 Blood Culture - Final
Blood/Venous No Growth - Final Report
06/03/24 19:24 Blood Culture - Final
Blood/Venous No Growth - Final Report
06/05/24 20:20 Nasal Screen MRSA (PCR) - Final
Nose MRSA not detected - performed by PCR methodology.
06/03/24 18:28 Urine Culture - Final
Urine
06/03/24 14:44 Influenza Types A & B (CHOLO) - Final
Nasal Swab Negative for Influenza A & B, NAAT
Negative results must be combined with clinical observations
and patient history.
Nucleic Acid Amplification test (NAAT)performed on the
[employer] platform.
06/03/[address]: SEVERE BILATERAL LOWER LOBE BRONCHITIS.
06/03/24 CT a/p: MODERATE to SEVERE ACUTE RIGHT HYDROURETERONEPHROSIS secondary to a 3.9 mm obstructing calculus at the right ureterovesical junction.
2. Moderate distention of the urinary bladder.
3. Moderate distention of the gallbladder.
4. Small hiatal hernia.
5. Chronic colitis in the cecum and ascending colon.
6. 7.9 mm sclerotic lesion in the intertrochanteric left proximal femur suspicious for a small blastic osseous metastasis in the setting of known breast cancer. A benign sclerotic bone island is alternative diagnostic possibility.
Care Review
Plan reviewed with: Physician (Dr. Ackerman)
[2024-06-09] MEDS: ROXICODONE 5 MG PO (11:05)
[2024-06-09] MEDS: TESSALON PERLES 100 MG PO (11:06)
--- NOTE | 2024-06-09 12:30 | PTOTSP ---
Speech Language Pathology
Pt seen for clinical bedside swallow evaluation. P.O. trials of puree and thin liquids. Pt declined concetta cracker, as she was concerned it would cause oral pain. Difficulty utilizing lips to strip spoon given sores. Able to compensate with
teeth and tongue. No overt signs of aspiration. Also seen with med pass with 2 pills whole with liquid with no overt difficulty. Discussed option of pureed solid diet vs regular solids with pt choosing softer items. Will start with regular
solids in an effort not to limit pt and to cater to appetite.
Recommend:
(1) Regular solids/thin liquids with pt choosing softer items for comfort
(2) Aspiration precautions: sit upright, slow rate
(3) Meds as tolerated. Can consider meds, especially larger meds, whole in puree
(4) MILK BOTTLER to continue to follow
[2024-06-09] MEDS: MUCOMYST 10% 2 ML INH ×2 (13:08→19:35)
[2024-06-09] MEDS: LIPITOR 10 MG PO (17:10)
--- NOTE | 2024-06-09 19:43 | PTCARENOTE ---
OOB x2 hours - too uncomfortable to stay longer. Remains on 2-3 L NC, has weak moist NPC- PRNs administered- neb by RT. Weak, frail. Oral care provided x2 this shift with ns rinses/ moisturizer and mild salt water for inside mouth with swabs.
Not actively bleeding today but has large black scabs surrounding lips. Appetite poor- encourage . IS/ Flutter encouraged as well. Griffith remains intact pink tinged adequate output- might remove am. Neutropenic precautions maintained.
[2024-06-09] MEDS: TOPAMAX 25 MG PO (20:46)
[2024-06-09] MEDS: ROBITUSSIN DM 10 ML PO (23:31)
[2024-06-10] VITALS (10 sets, daily range): BP systolic 92–124; BP diastolic 53–75; PULSE 101; O2SAT 95; BMI 23.0
[2024-06-10] MEDS: MUCOMYST 10% 2 ML INH ×4 (01:23→19:48)
[2024-06-10] MEDS: XOPENEX 0.63 MG INHALANT SOLUTION INH ×4 (01:23→19:49)
[2024-06-10] MEDS: STERILE WATER FOR INJECTION 10 ML IV ×2 (04:24→12:08)
[2024-06-10] MEDS: MAXIPIME 2000 MG IV ×2 (04:24→12:08)
[2024-06-10 05:09] LABS: ALT (SGPT) 34 U/L (0-35); AST (SGOT) 33 U/L (14-36); Albumin 1.8 g/dl (3.5-5.0); Alkaline Phosphatase 70 U/L (38-126); Blood Urea Nitrogen 11 mg/dl (7-17); Carbon Dioxide 20 mmol/L (22-30); Chloride 110 mmol/L (98-107); Estimated Creatinine Clearance 76 ml/min; Glucose 83 mg/dl (70-99); Potassium 3.4 mmol/L (3.5-5.1); Sodium 134 mmol/L (135-145); Total Bilirubin 0.3 mg/dl (0.2-1.3); Total Protein 4.2 g/dl (6.3-8.2); eGFR > 60.00
--- NOTE | 2024-06-10 05:26 | PTCARENOTE ---
No acute events overnight. Remains on 3 liters NC. at bedside throughout the night participating in care. Unable to give CHG bath this am - Patient stated that shes allergic and breaks out in a rash. Added to allergies
[2024-06-10 05:28] LABS: Hematocrit 23.7 % (37.0-47.0); Hemoglobin 8.3 g/dL (12.0-16.0); Mean Corpuscular Hgb 33.1 pg (27.0-31.0); Mean Corpuscular Volume 94.4 fL (81.0-99.0); Mean Platelet Volume 13.4 fL (7.4-10.4); Platelet Count 29 10^3/uL (130-400); Red Blood Cell Count 2.51 10^6/uL (4.20-5.40); Red Cell Dist. Width 15.4 % (11.5-14.5); White Blood Cell Count 14.4 10^3/uL (4.8-10.8)
[2024-06-10 07:55] LABS: Absolute Neutrophils -Man Diff 8.4 10^3/uL (1.4-6.5); Band Neutrophils 12 % (0-3); Lymphocytes 12 % (20-51); Monocytes 11 % (2-9); Segmented Neutrophils 47 % (42-75)
[2024-06-10 07:56] LABS: Atypical Lymphocytes 4 %; Eosinophils 2 % (0-6); Metamyelocytes 5 % (-); Myelocytes 7 % (-); Normal RBC Morphology Yes; Platelets Checked Yes; Total Cells Counted 100
--- NOTE | 2024-06-10 08:00 | PTCARENOTE ---
Pt is AAOx3 on 3l O2. Pt asking for a toothpaste that is a salt solution. After ivestigating I do not know of any salt tooth paste. Nor do any fellow co workers. Pt has a hard time taking pills , takes one at a time in yogurt.
[2024-06-10] MEDS: FOLVITE 1 MG PO (08:33)
[2024-06-10] MEDS: INDERAL 20 MG PO ×2 (08:33→21:21)
[2024-06-10] MEDS: VITAMIN D3 (cholecalciferol) 25 MCG PO (08:33)
[2024-06-10] MEDS: PROTONIX 40 MG PO (08:33)
[2024-06-10] MEDS: PAXIL 20 MG PO (08:34)
[2024-06-10] MEDS: ZOVIRAX INJECTION 56 MG IV (08:35)
[2024-06-10] MEDS: GRANIX 480 MCG SC (08:44)
--- NOTE | 2024-06-10 11:21 | W.PN.HOSP.TC ---
Addendum entered and electronically signed by Jose Ackerman MD 06/10/24 11:29:
hypokalemia -replete
Original Note:
Today's Communication/Plan
-
Tx to Med surg
Assessment / Plan
Assessment / Plan
#OBSTRUCTING RIGHT URETERAL STONE with SEVERE ACUTE RIGHT HYDROURETERONEPHROSIS
-Ureteral stent to stay in place for approx 2 weeks, outpatient removal
-Griffith catheter in place -with clinical improvement from other quadrants and improving mobility will try a voiding trial in AM.
-Outpatient removal of stent, follow-up urology outpatient
-Resolved hematuria. Status post platelet transfusion 06/08 for hematuria and thrombocytopenia
#Sepsis 2/2 to Bacterial Bronchitis and initially suspected source but urine culture is negative
- Cont cefepime per ID; patient unable to swallow Levaquin pills. Now that she is doing better ID to consider Levaquin if still indicated,
� Negative urine culture although elevated wbc with urine behind stone -cannot rule out related infection
- f/u cultures- negative
�ID following
# Severe bilateral Lower LOBE BRONCHITIS
- Cont abx per ID
- Duonebs as needed.
- cw Mucomyst inhalation. cw Jameson Margarito.
#Acute Pancytopenia Likely secondary to Chemotherapy
#Acute anemia, secondary to chemotherapy
-S/P 1 u prbc and 2 units of platelets so far on this admission
� GCSF 06/06/24 as per onc-resolved neutropenia-DC further G-CSF
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
- Continue Acyclovir 5mg/kg IV q8h (d2) per ID
#YANELY secondary to sepsis
Creat 1.1 > creat 0.7
-ivf prn
-resolved
# Sinus tachycardia-suspect multifactorial-discontinue scheduled nebulizers send use as needed. Increased dose of propranolol for now.Improved.
# History of breast cancer which is quiescent according to oncology. The new mets are from lung cancer
# Facial puffiness-noted by family. Also slightly puffy neck and clavicle area. This seems to be some issue with the blood return from the left port site. Port study yesterday shows left IJ port in satisfactory position, contrast passes to the
right atrium as expected. The contrast injection showed finding consistent with early fibrin sheath/catheter related sheath formation at the distal end of the catheter. If the facial swelling gets worse or if the port is needed for frequent blood
draws, port revision of port stripping would be recommended. To be followed at [facility].
DVT prophylaxis
SCDs, discontinue HSQ due to thrombocytopenia
Full code
Discussed with family about the clinical improvement and start of dc plan
Discussed with the RN
Tx to med surg
CW PT/OT
Anticipated Discharge: 24 - 48 hours
Subjective/Interval History
-
Date of Service: June 10, 2024
Still with intermittent cough sometimes productive sometimes difficult to get it up. Denies shortness of breath at rest.
She would like to take a shower if possible.
No nausea vomiting. Constipated.
Objective Data
-
Labs:
Laboratory Results
06/10/24
04:31
WBC 14.4 H
Hgb 8.3 L
Hct 23.7 L
Plt Count 29 L*
Sodium 134 L
Potassium 3.4 L
Chloride 110 H
Carbon Dioxide 20 L
BUN 11
Creatinine 0.6
Glucose 83
Calcium 8.0 L
Total Bilirubin 0.3
AST 33
ALT 34
Alkaline Phosphatase 70
Vital Signs:
Vital Signs
Temp Pulse Resp BP Pulse Ox
97.7 F 88 23 94/67 98
06/10/24 04:05 06/10/24 10:00 06/10/24 10:00 06/10/24 10:00 06/10/24 10:00
I&O
06/09/24 06/10/24 06/11/24
06:59 06:59 06:59
Intake Total 629 / 629 1566 / 1566
Output Total 2900 / 2900 1100 / 1100
Balance -2271 / -2271 466 / 466
Review of Systems
-
Constitutional: Denies Fever
EENT: Denies Sore Throat
Cardiac: Denies Chest Pain
Abdomen/GI: Denies Abdominal Pain, Nausea or Vomiting
Neuro: Denies Dizzy
Physical Exam
-
General: No Apparent Distress
Respiratory: Rhonchi (few BL occasionally) and Non Labored Respirations; Negative Wheezes or Accessory Resp Muscle Use
Cardiac: Regular Rhythm and S1/S2
GI: Soft and Nontender
Neuro: AO x 3
Psych: Calm; Negative Confused
Data Reviewed
-
Labs: Labs Reviewed by me
[2024-06-10] MEDS: COLACE 100 MG PO ×2 (12:07→21:26)
[2024-06-10] MEDS: MIRALAX 17 GRAMS PO (12:07)
--- NOTE | 2024-06-10 13:10 | W.PN.ID1 ---
Date of Service
Date of Service: June 10, 2024
Today's Communication
DC cefepime.
Transition to po valacyclovir (crush take with applesauce).
Assessment / Plan
# Neutropenia - resolved
# pancytopenia from chemo
# lung ca with mets to brain and bone currently on chemo at [facility]
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
- No progression of lesions. 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
- Transition Acyclovir 5mg/kg IV q8h (d6) to valacyclovir 1g po tid through 06/14/23 then valacyclovir 500mg po bid for suppressive therapy (hx genital therapy)
- Can crush valacyclovir, take with applesauce or pudding.
# Severe bilateral bronchitis with cough
- Completed cefepime (d8)
- Can dc further abx.
# Right obstructive uropathy
- 06/03 s/p lithotripsy, stone extraction, ureter stent placed
Cloudy urine behind stone, urine sent for cx but not done.
The Ucx with 20K mixed dunia was collected from ED. Offending organism may be behind the stone and not in bladder.
- Urinary retention. Griffith placed 06/06/24.
- completed cefepime (d8). DC abx.
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
Non-small cell lung cancer s/p wedge resection MAKENZIE and LLL 2020, with recent mets to brain and bone (dx 02/2024) s/p brain radiation, started chemo early 05/2024
Port placement
Hypothyroidism
Migraine headache
Dyslipidemia
Insomnia
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
Remote hx stage 0 left breast CA (2009) s/p left breast mastectomy, chemo, in remission
Bilateral breast reconstruction
Chief Complaint
-: Other (Neutropenia)
Subjective / Review of Systems
Does not like taste of potassium.
Trouble with swallowing large pills.
Vital Signs / Physical Exam
Vital Signs
Vital Signs
Temp Pulse Resp BP Pulse Ox
97.9 F 88 23 94/67 98
06/10/24 11:10 06/10/24 10:00 06/10/24 10:00 06/10/24 10:00 06/10/24 10:00
Physical Exam
Constitutional: No Acute Distress
Oropharyngeal: Other (Extensive dark lesions pino-oral)
Cardiovascular: Regular Rate and S1/S2
Pulmonary: Clear
Gastrointestinal: Soft, Non Tender and Non Distended
Neurological: AO x 3
Objective Data
Lab Data
Lab Results
06/10/24 04:31
06/10/24 04:31
PT 15.3 Sec (11.4-14.6) H 06/07/24 04:59
INR 1.18 06/07/24 04:59
APTT 34.7 Sec (23.4-35.0) 06/07/24 04:59
Estimated Creat Clear 76 ml/min 06/10/24 04:31
Total Bilirubin 0.3 mg/dl (0.2-1.3) 06/10/24 04:31
AST 33 U/L (14-36) 06/10/24 04:31
ALT 34 U/L (0-35) 06/10/24 04:31
Alkaline Phosphatase 70 U/L (38-126) 06/10/24 04:31
Most recent labs reviewed.
Micro Results:
06/03/24 19:24 Blood Culture - Final
Blood/Venous No Growth - Final Report
06/03/24 19:24 Blood Culture - Final
Blood/Venous No Growth - Final Report
06/05/24 20:20 Nasal Screen MRSA (PCR) - Final
Nose MRSA not detected - performed by PCR methodology.
01/01/25 18:28 Urine Culture - Final
Urine
06/03/24 14:44 Influenza Types A & B (CHOLO) - Final
Nasal Swab Negative for Influenza A & B, NAAT
Negative results must be combined with clinical observations
and patient history.
Nucleic Acid Amplification test (NAAT)performed on the
[employer] platform.
06/03/[address]: SEVERE BILATERAL LOWER LOBE BRONCHITIS.
06/03/24 CT a/p: MODERATE to SEVERE ACUTE RIGHT HYDROURETERONEPHROSIS secondary to a 3.9 mm obstructing calculus at the right ureterovesical junction.
2. Moderate distention of the urinary bladder.
3. Moderate distention of the gallbladder.
4. Small hiatal hernia.
5. Chronic colitis in the cecum and ascending colon.
6. 7.9 mm sclerotic lesion in the intertrochanteric left proximal femur suspicious for a small blastic osseous metastasis in the setting of known breast cancer. A benign sclerotic bone island is alternative diagnostic possibility.
[2024-06-10] MEDS: KCL 260 MEQ IV (14:52)
--- NOTE | 2024-06-10 15:34 | PTCARENOTE ---
Report to nurse on 3rd floor room 332. Physical therapy to see pt before she txs.
[2024-06-10] MEDS: VALTREX 1000 MG PO ×2 (16:24→21:26)
--- NOTE | 2024-06-10 16:43 | PTCARENOTE ---
Pt for tx to 332 awaiting transport. Pt as Sanjay hughes running as she could not take the pil or elixir. Now med surg . son at bedside. she did eat some water ice. States she is ready for transfer. Room packed up by myself and son.
--- NOTE | 2024-06-10 16:56 | PTCARENOTE ---
When stretcher came for transfer pt co of not being able to breathe, pt on 3l and POX 94%. no SOB noted no COLINDRES noted
--- NOTE | 2024-06-10 17:12 | PTCARENOTE ---
Pt received from IMU to 332-1 via stretcher. Pt oriented to staff, environment and call light system. Personal item and call light within reach. Family at bedside.
--- NOTE | 2024-06-10 17:33 | CM ---
Patient with Hx breast CA with Port on chemo who is s/p cysto with stent placement, s/p PRBCs and platelets in neutropenic precautions. Room air. Receiving Mucomyst Inh. PT/OT recommend HH.
Message from Dr Ackerman; question if patient would benefit from seeing palliative care. response from MD: No palliative care from my end. It should come from her docs in [facility].
Plan home with [facility].
[2024-06-10] MEDS: LIPITOR 10 MG PO (17:39)
[2024-06-10] MEDS: TOPAMAX 25 MG PO (21:21)
[2024-06-11] MEDS: MUCOMYST 10% 2 ML INH ×4 (01:24→20:09)
[2024-06-11] MEDS: XOPENEX 0.63 MG INHALANT SOLUTION INH ×4 (01:24→20:10)
--- NOTE | 2024-06-11 05:55 | PTCARENOTE ---
Pt was scanned @ 0525 for 596 and was able to void in the bedpan. pt with x2 loose BM throughout the night. PVR 230
[2024-06-11 06:00] VITALS: BMI 22.4
[2024-06-11 06:51] LABS: Hematocrit 24.7 % (37.0-47.0); Hemoglobin 8.4 g/dL (12.0-16.0); Mean Corpuscular Hgb 32.4 pg (27.0-31.0); Mean Corpuscular Volume 95.4 fL (81.0-99.0); Mean Platelet Volume 12.8 fL (7.4-10.4); Platelet Count 52 10^3/uL (130-400); Red Blood Cell Count 2.59 10^6/uL (4.20-5.40); Red Cell Dist. Width 15.6 % (11.5-14.5); White Blood Cell Count 51.5 10^3/uL (4.8-10.8)
[2024-06-11 06:52] LABS: Blood Urea Nitrogen 12 mg/dl (7-17); Calcium 8.4 mg/dl (8.4-10.2); Carbon Dioxide 21 mmol/L (22-30); Chloride 108 mmol/L (98-107); Estimated Creatinine Clearance 76 ml/min; Glucose 57 mg/dl (70-99); Potassium 3.1 mmol/L (3.5-5.1); Sodium 137 mmol/L (135-145); eGFR > 60.00
[2024-06-11 07:00] VITALS: BP 107/74
[2024-06-11] MEDS: COLACE PO ×2 (08:37→21:55)
[2024-06-11] MEDS: MIRALAX PO (08:37)
[2024-06-11] MEDS: VALTREX 1000 MG PO ×3 (08:39→21:55)
[2024-06-11] MEDS: VITAMIN D3 (cholecalciferol) 25 MCG PO (08:39)
[2024-06-11] MEDS: FOLVITE 1 MG PO (08:39)
[2024-06-11] MEDS: INDERAL 20 MG PO ×2 (08:39→21:56)
[2024-06-11] MEDS: PAXIL 20 MG PO (08:39)
[2024-06-11] MEDS: PROTONIX 40 MG PO (08:39)
--- NOTE | 2024-06-11 10:23 | W.PN.ONC2 ---
Today's Communication / Plan
-
Counts recovering, no longer neutropenic, now with leukocytosis s/p GCSF
antivirals per ID
OP follow up with primary oncologist
Impression
Impression
Non-small cell lung cancer, EGFR 19 mutated, status post carboplatin/pemetrexed/Rybrevant on 05/28, metastatic to bone - Metastases are from lung cancer, not breast cancer.
Remote history of breast cancer, quiescent
Severe pancytopenia from myelosuppressive chemotherapy. Count recovering. Leukocytosis from GCSF 06/06-06/10, discontinued
Right ureteral obstruction status post stent placement 06/03/2024, urine culture normal
Persistent urinary retention requiring Griffith
Hematuria
Status post sepsis attributed to severe bronchitis
Mucocutaneous HSV continuing on antiviral therapy
Plan
Plan
Maintain hemoglobin greater than 7.5, transfuse leukodepletd pRBCs as clinically indicated
Transfuse leukodepleted platelets for bleeding with plts <50k or <10 if not bleeding
Daily CBC with diff
Son at bedside and provided updates via phone during visit
Subjective/Objective
Subjective
no new complaints
Vital Signs:
Vital Signs
Temp Pulse Resp BP Pulse Ox
97.1 F 100 16 107/74 99
06/11/24 07:00 06/11/24 07:27 06/11/24 07:27 06/11/24 07:00 06/11/24 07:00
Lab Results:
Laboratory Data
WBC 51.5 10^3/uL (4.8-10.8) H* 06/11/24 05:56
Hgb 8.4 g/dL (12.0-16.0) L 06/11/24 05:56
Plt Count 52 10^3/uL (130-400) L D 06/11/24 05:56
PT 15.3 Sec (11.4-14.6) H 06/07/24 04:59
INR 1.18 06/07/24 04:59
APTT 34.7 Sec (23.4-35.0) 06/07/24 04:59
eGFR > 60.00 06/11/24 05:56
Physical Exam
mediport w/o erythema
HEENT: Other (Dark crusted/scabbed lesions across both lips, some in hard and soft palate); No Jaundice
Cardiology: Normal Sinus Rhythm
Pulmonary: Clear
GI: Soft
Extremities: Pulses Present; No Edema
Neuro: Non Focal
--- NOTE | 2024-06-11 10:31 | CM ---
Addendum entered by Dunia Iniguez 06/11/24 15:31:
referral sent and accepted by [facility]. Consult received and completed.
Addendum entered by Dunia Iniguez 06/11/24 15:15:
requested referral/consult for VN from physician, await response.
Original Note:
Patient seen at bedside with patient son present. Patient asked to talk to Dr. Ackerman and indicated that she wanted to go home. Patient would like [facility] to [facility] and will send referral. CM will continue to follow for discharge planning needs.
Plan; home with [facility]; CM will send updated clinical information.
--- NOTE | 2024-06-11 11:15 | W.PN.ID1 ---
Date of Service
Date of Service: June 11, 2024
Today's Communication
Continue valacyclovir 1g po tid through 06/14/23 then valacyclovir 500mg po bid for suppressive therapy (hx genital HSV)
ID will sign off.
Assessment / Plan
# Neutropenia - resolved
# pancytopenia from chemo
# lung ca with mets to brain and bone currently on chemo at [facility]
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
# hx of recurrent genital HSV on valacyclovir suppression
- No progression of lip lesions. 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
- s/p IV Acyclovir 5mg/kg IV q8h (5d)
- Continue valacyclovir 1g po tid through 06/14/23 then valacyclovir 500mg po bid for suppressive therapy (hx genital HSV)
- Can crush valacyclovir, take with applesauce or pudding.
# Severe bilateral bronchitis with cough
- Completed cefepime x 8d
- Can dc further abx.
# Right obstructive uropathy
- 06/03 s/p lithotripsy, stone extraction, ureter stent placed
Cloudy urine behind stone, urine sent for cx but not done.
The Ucx with 20K mixed dunia was collected from ED. Offending organism may be behind the stone and not in bladder.
- Urinary retention resolved. Griffith dc'd.
- completed cefepime x 8d.
ID will sign off.
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
Non-small cell lung cancer s/p wedge resection MAKENZIE and LLL 2020, with recent mets to brain and bone (dx 02/2024) s/p brain radiation, started chemo early 05/2024
Port placement
Hypothyroidism
Migraine headache
Dyslipidemia
Insomnia
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
Remote hx stage 0 left breast CA (2009) s/p left breast mastectomy, chemo, in remission
Bilateral breast reconstruction
Chief Complaint
-: Other (Neutropenia)
Subjective / Review of Systems
Lips not as painful.
Vital Signs / Physical Exam
Vital Signs
Vital Signs
Temp Pulse Resp BP Pulse Ox
97.1 F 100 16 107/74 2
06/11/24 07:00 06/11/24 07:27 06/11/24 07:27 06/11/24 07:00 06/11/24 10:26
Physical Exam
Constitutional: Comfortable
Oropharyngeal: Other (Extensive dark crusty lesions on upper and lower lips stable, few on hard palate)
Cardiovascular: Regular Rate and S1/S2
Pulmonary: Clear
Gastrointestinal: Soft, Non Tender and Non Distended
Genito-Urinary: Negative Griffith or CVA Tenderness
Neurological: AO x 3
Objective Data
Lab Data
Lab Results
06/11/24 05:56
06/11/24 05:56
PT 15.3 Sec (11.4-14.6) H 06/07/24 04:59
INR 1.18 06/07/24 04:59
APTT 34.7 Sec (23.4-35.0) 06/07/24 04:59
Estimated Creat Clear 76 ml/min 06/11/24 05:56
Total Bilirubin 0.3 mg/dl (0.2-1.3) 06/10/24 04:31
AST 33 U/L (14-36) 06/10/24 04:31
ALT 34 U/L (0-35) 06/10/24 04:31
Alkaline Phosphatase 70 U/L (38-126) 06/10/24 04:31
Most recent labs reviewed.
Micro Results:
06/03/24 19:24 Blood Culture - Final
Blood/Venous No Growth - Final Report
06/03/24 19:24 Blood Culture - Final
Blood/Venous No Growth - Final Report
06/05/24 20:20 Nasal Screen MRSA (PCR) - Final
Nose MRSA not detected - performed by PCR methodology.
06/03/24 18:28 Urine Culture - Final
Urine
06/03/24 14:44 Influenza Types A & B (CHOLO) - Final
Nasal Swab Negative for Influenza A & B, NAAT
Negative results must be combined with clinical observations
and patient history.
Nucleic Acid Amplification test (NAAT)performed on the
[employer] platform.
06/03/[address]: SEVERE BILATERAL LOWER LOBE BRONCHITIS.
06/03/24 CT a/p: MODERATE to SEVERE ACUTE RIGHT HYDROURETERONEPHROSIS secondary to a 3.9 mm obstructing calculus at the right ureterovesical junction.
2. Moderate distention of the urinary bladder.
3. Moderate distention of the gallbladder.
4. Small hiatal hernia.
5. Chronic colitis in the cecum and ascending colon.
6. 7.9 mm sclerotic lesion in the intertrochanteric left proximal femur suspicious for a small blastic osseous metastasis in the setting of known breast cancer. A benign sclerotic bone island is alternative diagnostic possibility.
--- NOTE | 2024-06-11 11:21 | W.PN.ID1 ---
Date of Service
Date of Service: June 11, 2024
Today's Communication
Continue valacyclovir 1g po tid through 06/14/23 then valacyclovir 500mg po bid for suppressive therapy (hx genital HSV).
ID will sign off.
Assessment / Plan
# Neutropenia - resolved
# pancytopenia from chemo
# lung ca with mets to brain and bone currently on chemo at [facility]
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
# hx of recurrent genital HSV on valacyclovir suppression
- No progression of lip lesions. 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
- s/p IV Acyclovir 5mg/kg IV q8h (5d)
- Continue valacyclovir 1g po tid through 06/14/23 then valacyclovir 500mg po bid for suppressive therapy (hx genital HSV)
- Can crush valacyclovir, take with applesauce or pudding.
# Severe bilateral bronchitis with cough
- Completed cefepime x 8d
- Can dc further abx.
# Right obstructive uropathy
- 06/03 s/p lithotripsy, stone extraction, ureter stent placed
Cloudy urine behind stone, urine sent for cx but not done.
The Ucx with 20K mixed dunia was collected from ED. Offending organism may be behind the stone and not in bladder.
- Urinary retention resolved. Nacho dc'd.
- completed cefepime x 8d.
ID will sign off.
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
Non-small cell lung cancer s/p wedge resection MAKENZIE and LLL 2020, with recent mets to brain and bone (dx 02/2024) s/p brain radiation, started chemo early 05/2024
Port placement
Hypothyroidism
Migraine headache
Dyslipidemia
Insomnia
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
Remote hx stage 0 left breast CA (2009) s/p left breast mastectomy, chemo, in remission
Bilateral breast reconstruction
Chief Complaint
-: Other (Neutropenia)
Vital Signs / Physical Exam
Vital Signs
Vital Signs
Temp Pulse Resp BP Pulse Ox
97.1 F 100 16 107/74 2
06/11/24 07:00 06/11/24 07:27 06/11/24 07:27 06/11/24 07:00 06/11/24 10:26
Objective Data
Lab Data
Lab Results
06/11/24 05:56
06/11/24 05:56
PT 15.3 Sec (11.4-14.6) H 06/07/24 04:59
INR 1.18 06/07/24 04:59
APTT 34.7 Sec (23.4-35.0) 06/07/24 04:59
Estimated Creat Clear 76 ml/min 06/11/24 05:56
Total Bilirubin 0.3 mg/dl (0.2-1.3) 06/10/24 04:31
AST 33 U/L (14-36) 06/10/24 04:31
ALT 34 U/L (0-35) 06/10/24 04:31
Alkaline Phosphatase 70 U/L (38-126) 06/10/24 04:31
Most recent labs reviewed.
Micro Results:
06/03/24 19:24 Blood Culture - Final
Blood/Venous No Growth - Final Report
06/03/24 19:24 Blood Culture - Final
Blood/Venous No Growth - Final Report
06/05/24 20:20 Nasal Screen MRSA (PCR) - Final
Nose MRSA not detected - performed by PCR methodology.
06/03/24 18:28 Urine Culture - Final
Urine
06/03/24 14:44 Influenza Types A & B (CHOLO) - Final
Nasal Swab Negative for Influenza A & B, NAAT
Negative results must be combined with clinical observations
and patient history.
Nucleic Acid Amplification test (NAAT)performed on the
[employer] platform.
06/03/[address]: SEVERE BILATERAL LOWER LOBE BRONCHITIS.
06/03/24 CT a/p: MODERATE to SEVERE ACUTE RIGHT HYDROURETERONEPHROSIS secondary to a 3.9 mm obstructing calculus at the right ureterovesical junction.
2. Moderate distention of the urinary bladder.
3. Moderate distention of the gallbladder.
4. Small hiatal hernia.
5. Chronic colitis in the cecum and ascending colon.
6. 7.9 mm sclerotic lesion in the intertrochanteric left proximal femur suspicious for a small blastic osseous metastasis in the setting of known breast cancer. A benign sclerotic bone island is alternative diagnostic possibility.
[2024-06-11] MEDS: KCL 270 MEQ IV (12:55)
[2024-06-11 15:20] VITALS: BP 105/71
--- NOTE | 2024-06-11 15:41 | W.PN.HOSP.TC ---
Today's Communication/Plan
-
Consult pulmonary
Home O2 eval
DC planning
Assessment / Plan
Assessment / Plan
#OBSTRUCTING RIGHT URETERAL STONE with SEVERE ACUTE RIGHT HYDROURETERONEPHROSIS
-Ureteral stent to stay in place for approx 2 weeks, outpatient removal
-Griffith catheter in place -with clinical improvement from other quadrants and improving mobility will try a voiding trial today.
-Outpatient removal of stent, follow-up urology outpatient
-Resolved hematuria. Status post platelet transfusion 06/08 for hematuria and thrombocytopenia
#Sepsis 2/ to Bacterial Bronchitis and initially suspected source but urine culture is negative
- Finished cefepime per ID
� Negative urine culture although elevated wbc with urine behind stone -cannot rule out related infection
- f/u cultures- negative
� ID following
# Severe bilateral Lower LOBE BRONCHITIS
- Cont abx per ID -finished 06/10
- Duonebs as needed.
- cw Mucomyst inhalation. cw Tessalon Perles.
# Hypoxia - remains with need of O2 via NC. Adx CT chest neg for PE. Recent CXR without any new acute cardiopulmonary process. She has a history of underlying lung cancer unclear if this is related to it. Consult pulmonary for evaluation. Check
for home O2 need.
#Acute Pancytopenia Likely secondary to Chemotherapy
#Acute anemia, secondary to chemotherapy
-S/P 1 u prbc and 2 units of platelets so far on this admission
� GCSF 06/06/24 as per onc-resolved neutropenia-DCed further G-CSF
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
- Continue Acyclovir 5mg/kg IV q8h (d2) per ID -switched to oral Valcyclovir
#YANELY secondary to sepsis
Creat 1.1 > creat 0.7
-ivf prn
-resolved
# Hypokalemia -replete
# Sinus tachycardia-suspect multifactorial-discontinue scheduled nebulizers send use as needed. Increased dose of propranolol for now.Improved.
# History of breast cancer which is quiescent according to oncology. The new mets are from lung cancer
# Facial puffiness-noted by family. Also slightly puffy neck and clavicle area. This seems to be some issue with the blood return from the left port site. Port study yesterday shows left IJ port in satisfactory position, contrast passes to the
right atrium as expected. The contrast injection showed finding consistent with early fibrin sheath/catheter related sheath formation at the distal end of the catheter. If the facial swelling gets worse or if the port is needed for frequent blood
draws, port revision of port stripping would be recommended. To be followed at [facility].
DVT prophylaxis
SCDs, discontinue HSQ due to thrombocytopenia
Full code
Discussed with family again today and went over the plan
Discussed with the RN
CW PT/OT
Anticipated Discharge: Within 24 hours
Subjective/Interval History
-
Date of Service: June 11, 2024
Feeling slow improvement.
Improved cough. Not short of breath at rest.
Tolerating more diet. Had a bowel movement.
Objective Data
-
Labs:
Laboratory Results
06/11/24
05:56
WBC 51.5 H*
Hgb 8.4 L
Hct 24.7 L
Plt Count 52 L D
Sodium 137
Potassium 3.1 L
Chloride 108 H
Carbon Dioxide 21 L
BUN 12
Creatinine 0.6
Glucose 57 L
Calcium 8.4
Vital Signs:
Vital Signs
Temp Pulse Resp BP Pulse Ox
98.2 F 102 17 105/71 94
06/11/24 15:20 06/11/24 15:20 06/11/24 15:20 06/11/24 15:20 06/11/24 15:20
I&O
06/10/24 06/11/24 06/12/24
06:59 06:59 06:59
Intake Total 1566 / 1566 1220 / 1220 270 / 270
Output Total 1100 / 1100 75 / 75
Balance 466 / 466 1145 / 1145 270 / 270
Review of Systems
-
Constitutional: Denies Fever or Chills
Cardiac: Denies Chest Pain
Abdomen/GI: Denies Nausea, Vomiting or Diarrhea
Neuro: Denies Dizzy
Physical Exam
-
General: No Apparent Distress
HEENT: Moist Mucous Membranes
Respiratory: Clear to Auscultation and Non Labored Respirations; Negative Accessory Resp Muscle Use
Cardiac: Regular Rhythm and S1/S2
Neuro: AO x 3
Psych: Calm; Negative Confused
Data Reviewed
-
Labs: Labs Reviewed by me
[2024-06-11] MEDS: LIPITOR 10 MG PO (17:05)
[2024-06-11] MEDS: TOPAMAX 25 MG PO (21:55)
[2024-06-11 23:00] VITALS: BP 125/75
[2024-06-12] MEDS: MUCOMYST 10% 2 ML INH ×2 (00:53→07:47)
[2024-06-12] MEDS: XOPENEX 0.63 MG INHALANT SOLUTION INH ×2 (00:53→07:47)
[2024-06-12 05:36] VITALS: BMI 22.2
[2024-06-12 06:48] LABS: Blood Urea Nitrogen 12 mg/dl (7-17); Calcium 8.3 mg/dl (8.4-10.2); Carbon Dioxide 19 mmol/L (22-30); Chloride 108 mmol/L (98-107); Estimated Creatinine Clearance 76 ml/min; Glucose 58 mg/dl (70-99); Potassium 3.3 mmol/L (3.5-5.1); Sodium 137 mmol/L (135-145); eGFR > 60.00
[2024-06-12 07:03] LABS: Hematocrit 24.1 % (37.0-47.0); Hemoglobin 8.2 g/dL (12.0-16.0); Mean Corpuscular Hgb 33.6 pg (27.0-31.0); Mean Corpuscular Volume 98.8 fL (81.0-99.0); Mean Platelet Volume 12.4 fL (7.4-10.4); Platelet Count 65 10^3/uL (130-400); Red Blood Cell Count 2.44 10^6/uL (4.20-5.40); White Blood Cell Count 55.3 10^3/uL (4.8-10.8)
[2024-06-12 07:35] VITALS: BP 121/77
--- NOTE | 2024-06-12 07:52 | CON.PUL ---
Consultation
Consultation Request
Date/Time Consultation Requested: 06/12/2024-7:30 AM
Date/Time Consultation Performed: 06/12/2024-8 AM
Requesting Provider: Hospitalist
Performing Provider: Dr. Madrid
Reason for Consultation: Hypoxemia
Medical History
-
Chief Complaint: Shortness of breath
History of Present Illness:
63-year-old female who is a former smoker diagnosed with adenocarcinoma of the lung 2020 status post metastatictomy's of 2 separate lobar nodules at [place] followed with surveillance and noted to have recurrence with diffuse mets to the bone as
well as brain status post XRT the brain and chemoimmunotherapy with carboplatin/Pemetrexel/amivantamab completing last cycle 10 days prior to admission admitted with right flank pain found to be hypoxemic still requiring oxygen and pulmonary was
consulted for persistent hypoxemia 06/12/2024. Patient is out of bed in the chair and persistent oxygen but denies any shortness of breath, chest pain, chest tightness, pleurisy, chest congestion, productive cough, pleurisy, wheezing, and offers no
complaints of abdominal pain, reflux, and her leg swelling is improved. She does not complain of focal weakness either.. She was diagnosed with obstructing right ureteral stone with severe right hydronephrosis and had a ureteral stent placed. She
recovered from her sepsis and was diagnosed with lower lobe bronchitis
Past Medical History
Past Medical History: None (Lung sjdzxs-wbtruevsifctjn-rkduw resection [facility]IE and [facility] with subsequent recurrence-mets to brain and bone 02/2024/XRT/chemoimmunotherapy. Remote stage 0 left breast cancer 2009 status post mastectomy/chemo in
remission. Hypothyroid. Migraine. Hyperlipidemia. Insomnia.)
Social History
Tobacco: Former Smoker ([id number] quit 25 years ago)
Alcohol: None
Drug: None
Personal:
Living: With Family
Occupational Exposures: No known asbestos exposure
Environmental Exposures: No known tuberculosis exposure
Family History
Family History: Reviewed & Not Pertinent
Allergies / Home Medications
Allergies
Allergy/AdvReac Type Severity Reaction Status Date / Time
Penicillins Allergy Hives as a Verified 06/06/24 16:34
child.
CHG Allergy Rash Uncoded 06/10/24 05:43
Home Medications
�Medication �Instructions �Recorded �Confirmed �Last Taken �Type
acyclovir 5 % topical ointment 1 applic topical QIDPRN PRN unknown 06/03/24 06/03/24 Unknown History
atorvastatin 10 mg tablet 10 mg PO QPM High Cholesterol 06/03/24 06/03/24 Unknown History
cholecalciferol (vitamin D3) 25 25 mcg PO DAILY Supplement 06/03/24 06/03/24 Unknown History
mcg (1,000 unit) tablet
dexamethasone 0.5 mg tablet 0.5 mg PO DAILY Anti-Inflammatory 06/03/24 06/03/24 Unknown History
dexamethasone 4 mg tablet 4 mg PO USEASDIRECTD 06/03/24 06/03/24 Unknown History
Anti-Inflammatory
diphenhydramine 25 2 tab PO HSPRN PRN sleep 06/03/24 06/03/24 Unknown History
mg-acetaminophen 500 mg tablet
(Tylenol PM Extra Strength)
diphenhydramine HCl 25 mg capsule 25 mg PO HSPRN PRN sleep 06/03/24 06/03/24 Unknown History
(Benadryl)
erenumab-aooe 70 mg/mL 70 mg SC QMONTH MIGRAINE 06/03/24 06/03/24 Unknown History
subcutaneous auto-injector
(Aimovig Autoinjector)
folic acid 1 mg tablet 1 mg PO DAILY Supplement 06/03/24 06/03/24 Unknown History
lidocaine-prilocaine 2.5 %-2.5 % 1 applic topical DAILYPRN PRN 06/03/24 06/03/24 Unknown History
topical cream topical pain/prior to port access
melatonin 5 mg tablet 5 mg PO HSPRN PRN sleep 06/03/24 06/03/24 Unknown History
olanzapine 5 mg tablet 5 mg PO USEASDIRECTD Mental 06/03/24 06/03/24 Unknown History
Health/Anxiety
ondansetron HCl 8 mg tablet 8 mg PO Q8HPRN PRN nausea/vomiting 06/03/24 06/03/24 Unknown History
pantoprazole 40 mg tablet,delayed 40 mg PO DAILY Gastrointestinal 06/03/24 06/03/24 Unknown History
release Issue
paroxetine HCl 20 mg tablet 20 mg PO DAILY Mental 06/03/24 06/03/24 Unknown History
Health/Anxiety
propranolol 10 mg tablet 10 mg PO BID Blood Pressure 06/03/24 06/03/24 Unknown History
rizatriptan 10 mg tablet 10 mg PO DAILYPRN PRN migraine 06/03/24 06/03/24 Unknown History
topiramate 25 mg tablet 25 mg PO HS MIGRAINE 06/03/24 06/03/24 Unknown History
valacyclovir 500 mg tablet 500 mg PO QPM Infection 06/03/24 06/03/24 Unknown History
Review of Systems
-
Unable to Obtain full review of systems at this time due to: Other (Per HPI)
Vitals / Labs / Diagnostic Testing
Vital Signs
Temp Pulse Resp BP Pulse Ox
97.8 F 100 18 121/77 98
06/12/24 07:35 06/12/24 07:35 06/12/24 07:35 06/12/24 07:35 06/12/24 07:35
Lab Data
06/12/24 05:58
06/12/24 05:58
Diagnostic Testing:
Physical Exam
-
Exam:
Well-nourished and well-developed in no apparent distress
HEENT-atraumatic, normocephalic
Neck-supple, no JVD, no bruit
Heart-regular rate and rhythm-no murmurs, rubs or gallops
Chest with diminished breath sounds, rare crackles at the right greater than left base and no wheezes
Back without tenderness
Abdomen-soft, nontender, nondistended, no hepatosplenomegaly
Extremities-no cyanosis, clubbing, edema and good peripheral pulses
Integument-intact, no rashes, lesions or ecchymosis
Neurology-alert and oriented, nonfocal motor and sensory exam
Assessment
-
63-year-old female who is a former smoker and remote breast cancer subsequently diagnosed with adenocarcinoma of the lung 2020 status post metastatictomy's of 2 separate lobar nodules at [place] followed with surveillance and noted to have
recurrence with diffuse mets to the bone as well as brain 02/2024 status post XRT the brain and chemoimmunotherapy with carboplatin/Pemetrexel/amivantamab completing last cycle 10 days prior to admission admitted with right flank pain found to be
hypoxemic still requiring oxygen and pulmonary was consulted for persistent hypoxemia 06/12/2024.
Persistent hypoxemia requiring oxygen
Obstructing right ureteral stone/acute right hydronephrosis status post ureteral stent
Status post sepsis
Tracheobronchitis
Pancytopenia secondary to chemotherapy-status post G-CSF 06/06/24-now significant leukocytosis
Anemia due to chemotherapy status post platelet and PRBC transfusion
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
Status post YANELY
Status post hypokalemia
Conditions present prior to admission:
Lung lldgxy-fmixdiendwzwkz-gwkxr resection [facility]KENZIE and LLL 2020 [facility] with subsequent recurrence-mets to brain and bone 02/2024/XRT/chemoimmunotherapy-carboplatin/Pemetrexel/amivantamab
Remote stage 0 left breast cancer 2009 status post mastectomy/chemo in remission.
Hypothyroid.
Migraine.
Hyperlipidemia.
Insomnia.
Plan
Respiratory decompensation likely due to bronchitis and atelectasis status post 8 days of cefepime and no evidence that chemoimmunotherapy has caused pulmonary toxicity
Supplement oxygen as needed-might require oxygen at time of discharge
Assess discharge supplemental oxygen needs
Aspiration precautions
Mucolytic's and bronchodilators if needed-currently not bronchospastic
Incentive spirometry
Flutter
Cultures reviewed
Infectious disease following-signed off 06/11/2024
Status post cefepime for 8 days
Valacyclovir for HSV mucocutaneous infection
Oncology following
Status post G-CSF and neutropenia resolved
Monitor hemoglobin
Transfuse if needed
Urology following
Status post ureteral stent
Renal function normalized
DVT prophylaxis-mechanical with thrombocytopenia
GI prophylaxis-on pantoprazole
Nutrition
Physical therapy
Reviewed with over the phone and the son at the bedside
Outpatient pulmonary/oncological follow-up at [facility]
Diagnostic data:
Chest x-ray 06/27-no acute cardiopulmonary process, subsegmental atelectasis left midlung field
Chest x-ray 06/09/2024-no acute cardiopulmonary abnormalities, stable left perihilar atelectasis or scarring
CT chest 06/03/2024-no pulmonary emboli, severe bilateral lower lobe bronchitis, 9 mm nodule along the suture line of the left upper lobe which could be scarring or malignancy, 2.9 cm irregular shaped nodular opacification right apex which could be
scarring or primary lung cancer, previous left mastectomy, bilateral breast implants and moderate right hydronephrosis
Echocardiogram 10/20/2013-EF 60%, normal diastolic function, mild mitral regurgitation
Data Reviewed
-
EKG: Report reviewed by me
Radiology: Image personally visualized and interpreted and Report reviewed by me
CT Scan: Image personally visualized and interpreted and Report reviewed by me
Medical Tests (Nuc Med, Echo etc): Report reviewed by me
Labs: Labs reviewed by me
Old Records: Reviewed
Total Time Spent with Patient (in minutes): 65
[2024-06-12] MEDS: INDERAL 20 MG PO (08:20)
[2024-06-12] MEDS: PROTONIX 40 MG PO (08:20)
[2024-06-12] MEDS: PAXIL 20 MG PO (08:21)
[2024-06-12] MEDS: MIRALAX PO (08:21)
[2024-06-12] MEDS: VALTREX 1000 MG PO ×2 (08:21→15:34)
[2024-06-12] MEDS: VITAMIN D3 (cholecalciferol) 25 MCG PO (08:21)
[2024-06-12] MEDS: FOLVITE 1 MG PO (08:21)
[2024-06-12] MEDS: COLACE PO (08:22)
[2024-06-12 09:24] VITALS: BP 121/76; PULSE 94; O2SAT 97
--- NOTE | 2024-06-12 10:15 | CM ---
Addendum entered by Dunia Iniguez 06/12/24 16:01:
Patient did not qualify for home O2 at this time. Plan is home with [facility] and family supports.
Original Note:
Patient seen at bedside with son and on the phone. Patient plan is to return home with [facility] for follow up. Patient with questions about outpatient vs home care. All questions addressed. Patient also for O2 assessment, currently on
2 liters per chart. Per no preference for home O2 provider at this time. CM will touch base with [facility] or [facility] pending qualification to see who can provide the home O2. CM will continue to follow for discharge planning needs.
Plan; home with [facility]; pending O2 assessment; referral to O2 provider
[2024-06-12] MEDS: ROBITUSSIN 200 MG PO (13:04)
[2024-06-12] MEDS: MUCOMYST 10% INH (13:31)
[2024-06-12 15:15] VITALS: BP 129/73
--- NOTE | 2024-06-12 15:43 | W.PN.HOSP.TC ---
Today's Communication/Plan
-
DC
Assessment / Plan
Assessment / Plan
#OBSTRUCTING RIGHT URETERAL STONE with SEVERE ACUTE RIGHT HYDROURETERONEPHROSIS
-Ureteral stent to stay in place for approx 2 weeks, outpatient removal
-Passed voiding trial.
-Outpatient removal of stent, follow-up urology outpatient
-Resolved hematuria.
#Sepsis 2/2 to Bacterial Bronchitis and initially suspected source but urine culture is negative
- Finished cefepime per ID
� Negative urine culture although elevated wbc with urine behind stone -cannot rule out related infection
- f/u cultures- negative
# Severe bilateral Lower LOBE BRONCHITIS
- Cont abx per ID -finished 06/10
--Resolved wheeze
- dc Mucomyst inhalation. cw Tessalon Jose Luises prn.
# Hypoxia -resolved. Appreciate pulmonary input
#Acute Pancytopenia Likely secondary to Chemotherapy
#Acute anemia, secondary to chemotherapy
-S/P 1 u prbc and 2 units of platelets so far on this admission
� GCSF 06/06/24 as per onc-resolved neutropenia-DCed further G-CSF
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
- Continue Acyclovir 5mg/kg IV q8h (d2) per ID -switched to oral Valcyclovir per ID
#YANELY secondary to sepsis
Creat 1.1 > creat 0.7
-ivf prn
-resolved
# Hypokalemia -replete
# Sinus tachycardia-suspect bhbxoqyufaguyr-povmqaeg-mqpuhwfv dose of propranolol back to her home dose
# History of breast cancer which is quiescent according to oncology. The new mets are from lung cancer
# Facial puffiness-noted by family. Also slightly puffy neck and clavicle area. This seems to be some issue with the blood return from the left port site. Port study yesterday shows left IJ port in satisfactory position, contrast passes to the
right atrium as expected. The contrast injection showed finding consistent with early fibrin sheath/catheter related sheath formation at the distal end of the catheter. If the facial swelling gets worse or if the port is needed for frequent blood
draws, port revision of port stripping would be recommended. To be followed at [facility].
Seems improved
DVT prophylaxis
SCDs, discontinue HSQ due to thrombocytopenia
Medically stable for discharge
Reviewed the PT recommendation of home health
Case management to look into disposition.
Full code
Discussed with family again today and went over the DC plan
More than 30 minutes spent in discharge including
Final examination of the patient
Summarizing hospital stay
Instructions for continuing care to all relevant caregivers
Preparation of discharge records, prescriptions, and referral forms
Total time spent (in minutes): 35
Anticipated Discharge: Today
Subjective/Interval History
-
Date of Service: June 12, 2024
Patient is feeling improved. She is completely off of oxygen. Home O2 evaluation shows no need for home O2.
Denies shortness of breath. Cough improved.
No fever chills.
No chest pain.
Tolerating diet.
Very keen to go home.
Objective Data
-
Labs:
Laboratory Results
06/12/24
05:58
WBC 55.3 H*
Hgb 8.2 L
Hct 24.1 L
Plt Count 65 L D
Sodium 137
Potassium 3.3 L
Chloride 108 H
Carbon Dioxide 19 L
BUN 12
Creatinine 0.6
Glucose 58 L
Calcium 8.3 L
Vital Signs:
Vital Signs
Temp Pulse Resp BP Pulse Ox
97.7 F 90 16 129/73 93
06/12/24 15:15 06/12/24 15:15 06/12/24 15:15 06/12/24 15:15 06/12/24 15:15
I&O
06/11/24 06/12/24 06/13/24
06:59 06:59 06:59
Intake Total 1220 / 1220 870 / 870
Output Total /
Balance 1145 / 1145 870 / 870
Review of Systems
-
Cardiac: Denies Palpitations
Abdomen/GI: Denies Abdominal Pain, Nausea, Vomiting, Diarrhea or Constipated
Neuro: Denies Dizzy
Physical Exam
-
General: No Apparent Distress
HEENT: Moist Mucous Membranes
Respiratory: Non Labored Respirations; Negative Wheezes, Crackles or Accessory Resp Muscle Use
GI: Soft and Nontender
Neuro: AO x 3
Psych: Calm
Data Reviewed
-
Labs: Labs Reviewed by me
[2024-06-12] MEDS: KCL 20 MEQ PO (16:12)
== END 2024-06-12 18:36 | disposition home health service (06) | DRG 853 ==
LOC: 3 WEST ACU 21:53
PROVIDERS: Clinical Nurse Specialist Family Health; Emergency Medicine; Hospitalist; Internal Medicine; Physician Assistant; ADMITTING PHYSICIAN Urology; ATTENDING PHYSICIAN Internal Medicine; CONSULT PHYSICIAN Internal Medicine Critical Care Medicine; CONSULT PHYSICIAN Internal Medicine Hematology & Oncology; CONSULT PHYSICIAN Internal Medicine Infectious Disease; EMERGENCY PHYSICIAN Student in an Organized Health Care Education/Training Program; FAMILY PHYSICIAN Family Medicine
PROC: 0T768DZ Dilation of Right Ureter with Intraluminal Device, Via Natural or Artificial Opening Endoscopic (ICD-10-PCS; 2024-06-03)
PROC: 0TC68ZZ Extirpation of Matter from Right Ureter, Via Natural or Artificial Opening Endoscopic (ICD-10-PCS; 2024-06-03)
PROC: 30233R1 Transfusion of Nonautologous Platelets into Peripheral Vein, Percutaneous Approach (ICD-10-PCS; 2024-06-06)
PROC: 30233N1 Transfusion of Nonautologous Red Blood Cells into Peripheral Vein, Percutaneous Approach (ICD-10-PCS; 2024-06-07)
DX: A41.9 Sepsis, unspecified organism (principal); D61.810 Antineoplastic chemotherapy induced pancytopenia; C34.12 Malignant neoplasm of upper lobe, left bronchus or lung; C79.51 Secondary malignant neoplasm of bone; N13.2 Hydronephrosis with renal and ureteral calculous obstruction; N17.9 Acute kidney failure, unspecified; C79.31 Secondary malignant neoplasm of brain; D84.9 Immunodeficiency, unspecified; E87.1 Hypo-osmolality and hyponatremia; E78.00 Pure hypercholesterolemia, unspecified; K21.9 Gastro-esophageal reflux disease without esophagitis; J20.9 Acute bronchitis, unspecified; T45.1X5A Adverse effect of antineoplastic and immunosuppressive drugs, initial encounter; E86.0 Dehydration; R65.20 Severe sepsis without septic shock; E87.6 Hypokalemia; E03.9 Hypothyroidism, unspecified; G43.909 Migraine, unspecified, not intractable, without status migrainosus; G47.00 Insomnia, unspecified; I10 Essential (primary) hypertension; R09.02 Hypoxemia; B00.1 Herpesviral vesicular dermatitis; Z11.52 Encounter for screening for COVID-19; Z79.899 Other long term (current) drug therapy; Z85.3 Personal history of malignant neoplasm of breast; Z87.442 Personal history of urinary calculi; Z87.891 Personal history of nicotine dependence; Z90.12 Acquired absence of left breast and nipple; Z92.3 Personal history of irradiation
CPT/HCPCS: 36598; 71045; 71275; 74018; 74176; 76000; 80048; 80053; 81003; 81015; 83735; 84100; 84443; 85018; 85025; 85027; 85384; 85610; 85730; 86850; 86900; 86901; 86920; 87040; 87086; 87502; 87641; 87811; 92526; 92610; 93005; 94640; 96361; 96374; 96375; 96376; 97110; 97163; 97167; 97530; 97535; 99285; C1769; C2617; J1447; J2997; P9016; P9073; Q9967